=== PATIENT | female | born 1965 | race African-American/Black ===

== ENCOUNTER 2019-07-15 21:31 | Emergency (ER) | payer MEDICARE, SELFPAY ==
[2019-07-15 21:37] VITALS: BP 133/72; PULSE 89; RESP 22; TEMP 36.2; O2SAT 100
--- NOTE | 2019-07-15 21:40 | ED.ALLEREA ---
HPI - Allergic Reaction General Chief complaint: Skin/Abscess/Foreign Body Stated complaint: all rx Time Seen by Provider: 07/15/19 21:35 Source: patient and RN notes reviewed Mode of arrival: EMS Limitations: no limitations History of Present Illness HPI narrative: Pt is a 54 y/o female who presents to the ED via EMS with c/o possible allergic reaction. She notes that she recently began taking Estroven 4 days ago due to her undergoing menopause. Pt states that she then developed a rash and associated itching in her bilateral axilla 3 days ago. She notes that she hasn't used any new deodorants, soaps, or other new medications recently. Pt also reports wheezing as of earlier today, but denies any wheezing, nausea, vomiting, or diarrhea currently. According to the nurse, the pt took an OTC allergy medication this evening prior to her arrival to the ED. MD complaint: allergic reaction Onset (ago): day(s) (3) Exposure: medication (Estroven) Symptoms: rash and itching Treatment prior to arrival: other (OTC allergy medication) Related Data Home Medications Medication Instructions Recorded Confirmed Restasis 1 drp OPHTHALMIC (EYE) Q12H 03/30/19 06/22/19 Symbicort See Rx Instructions .ROUTE .COMPLEX 03/30/19 06/22/19 albuterol sulfate 0.63 mg INHALATION BID 03/30/19 06/22/19 baclofen 10 mg PO TID 03/30/19 06/22/19 cetirizine 5 mg PO DAILY 03/30/19 06/22/19 diazepam 10 mg PO HS PRN 03/30/19 06/22/19 gabapentin 300 mg PO TID 03/30/19 06/22/19 montelukast 10 mg PO HS 03/30/19 06/22/19 nabumetone 500 mg PO BID 03/30/19 06/22/19 paroxetine HCl 10 mg PO DAILY 03/30/19 06/22/19 polyethylene glycol 3350 [Miralax] 17 g PO DAILY 03/30/19 06/22/19 albuterol sulfate 90 mcg/actuation 2 puff INHALATION Q4-6H PRN gm 05/22/19 06/22/19 aerosol inhaler lamotrigine 25 mg tablet 25 mg PO DAILY tablet 01/03/20 02/03/20 lidocaine 5 % topical ointment 1 applic TOPICAL DAILY PRN 05/22/19 06/22/19 omeprazole 20 mg tablet,delayed 20 mg PO DAILY 05/22/19 06/22/19 release Allergies Allergy/AdvReac Type Severity Reaction Status Date / Time Sulfa (Sulfonamide Allergy Mild Swelling Verified 06/15/19 10:13 Antibiotics) ibuprofen Allergy Unknown Nausea Verified 06/15/19 10:13 prochlorperazine Allergy Unknown Sweating Verified 06/15/19 10:13 lisinopril Allergy Unknown Verified 06/15/19 10:13 Review of Systems Review of Systems: Narrative: CONSTITUTIONAL: Denies fever, chills, or sweats. RESPIRATORY: Denies cough or dyspnea. Reports wheezing (resolved). GASTROINTESTINAL: Denies abdominal pain, nausea, vomiting, or diarrhea. SKIN: Reports rash and itching on bilateral axilla. All systems reviewed & are unremarkable except as noted in HPI and below PMFSH Past Medical History Medical History Allergies Anemia Asthma Asthma Bunion rt foot Cataract, right eye Clostridium difficile infection Contracture of toe rt foot Ear infection Eczema Fibroids Fracture lt femur, lt tibia GERD (gastroesophageal reflux disease) Hyperlipidemia Hypertension Knee pain right knee after injury Methicillin resistant Staph aureus culture positive Multiple sclerosis Multiple sclerosis Onychomycosis Pneumonia Pressure ulcer of coccygeal region Pulmonary embolism Seasonal allergies Suprapubic catheter Suprapubic catheter UTI (urinary tract infection) Vitreous floater Left eye Wrist pain right Surgical History Surgical History H/O rotator cuff surgery rt H/O toe surgery History of bladder surgery History of mandibular surgery Hx of tubal ligation No significant past surgical history Family History Family History (System 06/15/19 @ 10:13 by Sharon Tomas) Sibling Patient's sister is in good health Heart disease Father Family history of malignant neoplasm Mother Type 2 diabetes mellitus Son Alive and well Daughter Alive and well Grandp
[2019-07-15] MEDS: FAMOTIDINE 20 MG TABLET PO (21:50)
[2019-07-15] MEDS: DEXAMETHASONE SOD PHOS INJ 4 MG/ML VIAL 10 MG BY MOUTH (21:58)
[2019-07-15 22:15] VITALS: BP 135/70; PULSE 71; RESP 18; O2SAT 100
--- NOTE | 2019-07-15 22:43 | PC.NURSE ---
Called [facility] to transport patient to residence. ETA 0030. #[id number]
[2019-07-15 23:41] VITALS: BP 115/84; PULSE 81; RESP 16; TEMP 36.2; O2SAT 100
== END 2019-07-15 23:42 | disposition home or self-care (01) ==
PROVIDERS: Emergency Provider Emergency Medicine; PCP Internal Medicine
DX: L25.9 Unspecified contact dermatitis, unspecified cause (principal); J45.909 Unspecified asthma, uncomplicated; K21.9 Gastro-esophageal reflux disease without esophagitis; E78.5 Hyperlipidemia, unspecified; I10 Essential (primary) hypertension; G35 Multiple sclerosis
CPT/HCPCS: 99283; A9270; J1100

== ENCOUNTER 2020-01-15 10:31 | Emergency (ER) | payer MEDICARE, SELFPAY ==
--- NOTE | ~2020-01-15 | XR_ITS ---
EXAMINATION: XR wrist RT min 3V DATE: 01/15/2020 12:17 INDICATION: Right wrist pain. Fall. TECHNIQUE: 3 views of right wrist were obtained. COMPARISON: Right wrist radiographs 12/29/2016 FINDINGS: Bone alignment is normal. No fracture. Osteopenia is noted. Joint spaces are well maintaine d. IMPRESSION: 1. No fracture. Reviewed, dictated and finalized at location B. IMPRESSION: 1. No fracture.
--- NOTE | ~2020-01-15 | XR_ITS ---
EXAMINATION: XR elbow RT min 3V DATE: 01/15/2020 12:17 INDICATION: Right elbow pain. TECHNIQUE: 4 views of right elbow were obtained. COMPARISON: None. FINDINGS: Bone alignment is normal. No fracture. Joint spaces are well maintained. No elbow joint eff usion. IMPRESSION: 1. Normal right elbow. Reviewed, dictated and finalized at location B. IMPRESSION: 1. Normal right elbow.
--- NOTE | ~2020-01-15 | XR_ITS ---
EXAMINATION: XR ribs RT 2V w CXR 2V DATE: 01/15/2020 12:17 INDICATION: Right chest pain. Fall. TECHNIQUE: Frontal and lateral views of the chest and 3 views of the right ribs were obtained. COMPARISON: Chest single view 05/03/2019 FINDINGS: CHEST TWO VIEWS: There is mild atelectasis at left lung base. No pleural effusion or pneumothorax. Th e heart size is normal. RIGHT RIBS: There is no rib fracture. IMPRESSION: 1. No rib fracture. 2. Mild atelectasis at left lung base. Reviewed, dictated and finalized at location B.
--- NOTE | ~2020-01-15 | CT_ITS ---
EXAMINATION: CT cervical spine wo [facility] EXAM DATE: 01/15/2020 11:35 INDICATION: Initial encounter following injury, with pain of the head, neck and low back. TECHNIQUE: Spiral CT of the cervical spine was performed without contrast. Axial images were reviewe d. Coronal and sagittal reformatted images were also reviewed. The dose-length product (DLP) for thi s examination was 214.23 mGy-cm. The exposure was tailored according to patient size (auto mA exposu re control), and iterative reconstruction (ASIR) was used as additional dose reduction technique. Th ere is no prior study for comparison. FINDINGS: There is no evidence of acute cervical fracture. The odontoid process is intact. Pre-dens space is normal. Prevertebral soft tissue is normal. There are no soft tissue abnormalities identi fied. There is no disc space widening or traumatic vertebral body subluxation suspected. Moderate t o severe cervical spondylosis, with right-sided predominant neural foraminal stenosis. A detailed le anthony by level evaluation of spondylosis can be added as addendum if requested. IMPRESSION: No acute cervical fracture. Reviewed, dictated and finalized at location A. IMPRESSION: No acute cervical fracture.
--- NOTE | ~2020-01-15 | XR_ITS ---
EXAMINATION: XR shoulder RT min 2V DATE: 01/15/2020 12:17 INDICATION: Right shoulder pain. TECHNIQUE: 3 views of right shoulder were obtained. COMPARISON: Right shoulder radiographs 03/29/2019 FINDINGS: Bone alignment is normal. No fracture. There is mild glenohumeral joint osteoarthritis. The re is severe acromioclavicular joint osteoarthritis. IMPRESSION: 1. Polyarticular osteoarthritis. Reviewed, dictated and finalized at location B.
--- NOTE | ~2020-01-15 | CT_ITS ---
EXAMINATION: CT lumbar spine wo con DATE: 01/15/2020 11:37 INDICATION: Low back pain. TECHNIQUE: Computed tomography (CT) of the lumbar spine was performed without intravenous contrast. A utomated exposure control and iterative reconstruction technique were employed. The dose-length produ ct was 1080.94 mGy-cm. COMPARISON: None FINDINGS: Bone alignment is normal. Vertebral body heights and intervertebral disc heights are normal . There are erosions at the sacroiliac joints. The following disc levels are specifically discussed: L1-L2: The disc does not extend beyond the endplate margin. There is mild bilateral facet joint osteo arthritis. There is no neural foraminal stenosis. There is no central canal stenosis. L2-L3: The disc does not extend beyond the endplate margin. There is moderate bilateral facet joint o steoarthritis. There is no neural foraminal stenosis. There is no central canal stenosis. L3-L4: The disc does not extend beyond the endplate margin. There is severe bilateral facet joint ost eoarthritis. There is no neural foraminal stenosis. There is no central canal stenosis. L4-L5: The disc does not extend beyond the endplate margin. There is severe bilateral facet joint ost eoarthritis. There is no neural foraminal stenosis. There is no central canal stenosis. L5-S1: The disc does not extend beyond the endplate margin. There is moderate bilateral facet joint o steoarthritis. There is no neural foraminal stenosis. There is no central canal stenosis. IMPRESSION: 1. Lumbar facet joint osteoarthritis. 2. Bilateral sacroiliitis. The differential diagnosis includes ankylosing spondylitis and enteropathy -associated arthritis. Reviewed, dictated and finalized at location B. IMPRESSION: 1. Lumbar facet joint osteoarthritis. 2. Bilateral sacroiliitis. The differential diagnosis includes ankylosing spond ylitis and enteropathy-associated arthritis.
--- NOTE | ~2020-01-15 | CT_ITS ---
EXAMINATION: CT brain wo con DATE: 01/15/2020 11:35 INDICATION: Head injury. TECHNIQUE: Computed tomography (CT) of the head was performed without intravenous contrast. The mA wa s adjusted according to patient size. Iterative reconstruction technique was employed. The dose-lengt h product was 605.33 mGy-cm. COMPARISON: Head CT 06/05/2019 FINDINGS: There are scattered areas of low attenuation in the cerebral white matter. There is no intr acranial hemorrhage, acute infarction, or abnormal intracranial mass lesion. The ventricles are daniel l in size. There are likely changes of right ocular lens replacement surgery. The paranasal sinuses a re clear. The mastoid air cells are normal. IMPRESSION: 1. Stable moderate white matter disease, consistent with multiple sclerosis. Reviewed, dictated and finalized at location B.
[2020-01-15 10:23] VITALS: BP 143/97; PULSE 77; RESP 16; TEMP 36.7; O2SAT 99
--- NOTE | 2020-01-15 11:20 | ED.UPPEXIN ---
HPI - Extremity Injury (Upper) General Chief Complaint: Extremity Injury, Upper Stated Complaint: Arm Pain after Fall Yesterday Time Seen by Provider: 01/15/20 10:39 Source: patient Mode of arrival: EMS Limitations: no limitations History of Present Illness HPI narrative: This is a 54 year old female that presents to the ER for a fall yesterday. Reports she has history of MS. Has trouble with ADL so has an loan assistant at home that helps her. Reports she was sitting on the end of the bed and she lost her balance and fell off the bed onto her left side. Reports since she has had right arm pain and neck pain. Also reports hitting her head. Denies loss of consciousness. Denies vision changes, vomiting, or new numbness. Related Data Home Medications Medication Instructions Recorded Confirmed Restasis 1 drp OPHTHALMIC (EYE) Q12H 03/30/19 08/28/19 baclofen 10 mg PO TID 03/30/19 08/28/19 cetirizine 5 mg PO DAILY 03/30/19 08/28/19 gabapentin 300 mg PO TID 03/30/19 08/28/19 nabumetone 500 mg PO BID 03/30/19 08/28/19 paroxetine HCl 10 mg PO DAILY 03/30/19 08/28/19 polyethylene glycol 3350 [Miralax] 17 g PO DAILY 03/30/19 08/28/19 albuterol sulfate 90 mcg/actuation 2 puff INHALATION Q4-6H PRN gm 05/22/19 08/28/19 aerosol inhaler lamotrigine 25 mg tablet 25 mg PO DAILY tablet 05/22/19 08/28/19 lidocaine 5 % topical ointment 1 applic TOPICAL DAILY PRN 05/22/19 08/28/19 Allergies Allergy/AdvReac Type Severity Reaction Status Date / Time Sulfa (Sulfonamide Allergy Mild Swelling Verified 06/15/19 10:13 Antibiotics) ibuprofen Allergy Unknown Nausea Verified 06/15/19 10:13 prochlorperazine Allergy Unknown Sweating Verified 06/15/19 10:13 lisinopril Allergy Unknown Verified 06/15/19 10:13 Review of Systems Review of Systems: Narrative: CONSTITUTIONAL: Denies fever EYES: Denies visual changes CARDIOVASCULAR: Denies chest pain RESPIRATORY: Denies dyspnea. GASTROINTESTINAL: Denies vomiting MUSCULOSKELETAL: Reports back pain, joint pain, and myalgia. NEUROLOGIC: Denies new numbness, or weakness. All systems reviewed & are unremarkable except as noted in HPI and below PMFSH Family History Family History (System 06/15/19 @ 10:13 by Sharon Tomas) Sibling Patient's sister is in good health Heart disease Father Family history of malignant neoplasm Mother Type 2 diabetes mellitus Son Alive and well Daughter Alive and well Grandparent Breast cancer Other Cerebrovascular accident Diabetes mellitus Family history of arthritis Family history of cardiovascular disease Hypertension Social History Social History Smoking status: Never smoker Alcohol intake: current Substance use: never Substance use type: does not use Gender identity (if verbalized by the patient): Female Spiritual care concerns: No Agree to blood products: Yes Exam Narrative: Exam Narrative: GENERAL: Well-appearing, well-nourished, and in no acute distress. HEAD: Normocephalic, atraumatic. EYES: PERRLA and EOMI. ENT: Nares clear, no rhinorrhea or epistaxis. Mucous membranes moist. Oropharynx without tonsillar hypertrophy exudate or other lesions. Bilateral TMs pearly hatch non-bulging NECK: Supple. No adenopathy or masses. CHEST: Clear to auscultation. No respiratory distress. No wheezes rales or rhonchi HEART: Regular rate and rhythm. No murmur heard. Normal peripheral pulses. ABDOMEN: Soft, nontender, nondistended, normal active bowel sounds. BACK: No midline thoracic spine tenderness. Tender to palpation of midline lumbar spine. Stage 1/2 pressure ulcer over the sacrum, without surrounding edema, erythema, or abnormal drainage EXTREMITIES: Decreased active ROM in the extremities due to chronic weakness from MS. No edema or obvious deformity. SKIN: Warm, dry, no rash. NEURO: No focal deficits. Alert and oriented x3. CN II-XII grossly intact PSYCH: Normal mood and affect Course
--- NOTE | 2020-01-15 11:48 | PC.NURSE ---
pt at radiology at this time
--- NOTE | 2020-01-15 12:17 | PC.NURSE ---
x2 Lidocaine patches removed from patients shoulders per patient request. She stated it was time for them to come off. Patches disposed of in medical waste bin per protocol.
[2020-01-15 12:45] VITALS: BP 135/80; PULSE 77; RESP 16; O2SAT 100
[2020-01-15 14:11] VITALS: BP 144/72; PULSE 86; RESP 16; TEMP 36.6; O2SAT 100
[2020-01-15 15:34] VITALS: BP 147/80; PULSE 89; RESP 16; O2SAT 98
== END 2020-01-15 15:35 | disposition home or self-care (01) ==
PROVIDERS: Emergency Provider Emergency Medicine; PCP Internal Medicine
DX: M54.2 Cervicalgia (principal); M79.601 Pain in right arm; M54.5 Low back pain; S09.90XA Unspecified injury of head, initial encounter; L89.151 Pressure ulcer of sacral region, stage 1; G35 Multiple sclerosis; M46.1 Sacroiliitis, not elsewhere classified; M19.011 Primary osteoarthritis, right shoulder; M47.816 Spondylosis without myelopathy or radiculopathy, lumbar region; R91.8 Other nonspecific abnormal finding of lung field; W06.XXXA Fall from bed, initial encounter
CPT/HCPCS: 70450; 71046; 71100; 72125; 72131; 73030; 73080; 73110; 99284; L0140

== ENCOUNTER → 2020-08-03 10:51 | Outpatient (CLI) | payer MEDICARE, MEDICAID, SELFPAY ==
--- NOTE | ~2020-08-03 | MM_ITS ---
EXAMINATION: MM screening [facility] BI w evon HISTORY: Screening TECHNIQUE: Craniocaudal and mediolateral oblique 3-D tomosynthesis images were obtained and synthetic 2-D images were generated. CAD analysis was submitted and interpreted. COMPARISON: Comparison to multiple prior studies sequentially, with oldest reviewed study dated 03/20. BREAST PARENCHYMAL COMPOSITION: There are scattered areas of fibroglandular density. FINDINGS: There is no evidence of suspicious mass, calcification, or architectural distortion to sugg est malignancy in either breast. There has been no suspicious interval change. IMPRESSION: 1. No mammographic evidence of malignancy. 2. Recommend routine screening mammography in one year. BI-RADS Category 1: Negative Reviewed, dictated and finalized at location A.
== END ==
DX: Z12.31 Encounter for screening mammogram for malignant neoplasm of breast (principal)
CPT/HCPCS: 77063; 77067

== ENCOUNTER 2020-10-22 13:07 | Observation (INO) | payer MEDICARE, MEDICAID, SELFPAY ==
[2020-10-22] VITALS (15 sets, daily range): BP systolic 115–149; BP diastolic 67–87; PULSE 63–78; RESP 16–20; TEMP 36.1–36.8; O2SAT 96–100; BMI 26.6
--- NOTE | ~2020-10-22 | XR_ITS ---
XR chest 1V portable DATE: 10/22/2020 14:35 INDICATION: Chest pain. Left flank pain. TECHNIQUE: Portable AP chest on 10/22/2020 at 1436 hours COMPARISON: 01/15/2020 2 view chest FINDINGS: There is moderate elevation of the right leaf of the diaphragm. There is mild atelectasis at the lung bases. The lungs otherwise appear clear. Heart size is likely within normal range considering magnification associated with AP projection. No pleural effusion or pulmonary vascular congestion or pneumothorax. IMPRESSION: Moderate elevation right diaphragm Mild atelectasis at the lung bases Reviewed, dictated and finalized at location A.
--- NOTE | ~2020-10-22 | CT_ITS ---
EXAMINATION: CT abdomen pelvis w con DATE: 10/22/2020 15:15 INDICATION: Left-sided abdominal pain TECHNIQUE: Computed tomography (CT) of the abdomen and pelvis was performed with 100 cc Omnipaque 350 intravenous contrast. Automated exposure control and iterative reconstruction technique were employe d. Exam dose: 922.00 mGy-cm total exam DLP. COMPARISON: 06/14/2019 CT abdomen pelvis /02/2019 CT abdomen pelvis FINDINGS: There is moderate elevation the right leaf of the diaphragm. There is bibasilar atelectasis , involving particularly the right lower lobe and to a lesser extent left lower lobe and middle lobe. Very small bilateral pleural effusions. No pericardial effusion. Occasional hepatic cysts measuring up to approximately 1.5 cm maximal dimension. Normal splenic size. The gallbladder is present. No gallbladder wall thickening or pericholecystic fluid or fat stranding . No bile duct dilatation. No pancreatic mass lesion or calcification is evident. There is interval pancreatic ductal prominence since prior examinations. Consider MRCP or ERCP correlation. Normal morphology of the adrenal glands. 1 cm upper pole left renal cyst. Very small lower pole left renal cyst. No renal mass lesion is noted otherwise. No urinary tract calculus or hydroureteronephrosis. There is a suprapubic catheter within the completely evacuated urinary bladder. Normal caliber of the abdominal aorta. No intraperitoneal or retroperitoneal or pelvic mass lesion or adenopathy or ascites. Normal appendix. There is nonspecific soft tissue thickening of the wall of the rectum and distal sigmoid colon. No jairon wel obstruction or intraperitoneal free air is detected. Mild fat-containing umbilical hernia. Subcutaneous fat stranding of the right buttock. Included skeletal structures are unremarkable. IMPRESSION: Bibasilar atelectasis, right greater than left Hepatic cysts Left renal cysts Interval pancreatic duct prominence, measuring up to approximately 2.3 mm diameter. Consider correlat ion with MRCP or ERCP Nonspecific soft tissue thickening of the rectal and distal sigmoid colon wall there is no atheroscle rotic calcification of the abdominal aorta or iliac vessels to suggest ischemic etiology Reviewed, dictated and finalized at [facility]. Reviewed, dictated and finalized at location A. IMPRESSION: Bibasilar atelectasis, right greater than left Hepatic cysts Left renal cysts Interval pancreatic duct prominence, measuring up to approximately 2.[address] Consider correlation with MRCP or ERCP Nonspecific soft tissue thickening of the rectal and distal sigmoid colon wall there is no atherosclerotic calcification of the abdominal aorta or iliac vesse ls to suggest ischemic etiology
--- NOTE | ~2020-10-22 | MR_ITS ---
EXAMINATION: MR MRCP wo con/w 3D wo ind pp DATE: 10/23/2020 12:52 INDICATION: Dilated pancreatic duct. Abdominal pain. TECHNIQUE: Magnetic resonance imaging (MRI) of the abdomen was performed without intravenous contrast . Sequences included coronal T2-weighted FS FSE, coronal T2-weighted FSE, axial T1-weighted LAVA, cor onal FS FIESTA, axial dual-echo T1-weighted SPGR, coronal lava-FLEX, sagittal T2-weighted FSE, axial T2-weighted FSE, and axial DWI. Thick-slab T2-weighted FSE images were obtained for magnetic resonanc e cholangiopancreatography (MRCP). Maximum intensity projection 3-D reconstructions of the volumetric data were created by the technologist. COMPARISON: CT abdomen and pelvis 10/22/2020 FINDINGS: ABDOMEN MRI: There are small pleural effusions, right worse than left. There are cysts in the liver m easuring up to 15 mm. The gallbladder is distended. The spleen, pancreas, and adrenal glands are norm al. There is cortical thinning of the kidneys. There is a 10 mm hemorrhagic cyst in left kidney. Ther e are no dilated loops of bowel. There are no pathologically enlarged lymph nodes. There is no free i ntraperitoneal fluid. A suprapubic catheter is noted. ABDOMEN MRCP: The common duct is normal and measures 3 mm. The pancreatic duct is normal. IMPRESSION: 1. Normal pancreatic duct. 2. Gallbladder distention, which may be secondary to fasting. Correlate with physical exam for any ev idence of acute cholecystitis. 3. Small pleural effusions. Reviewed, dictated and finalized at location A. IMPRESSION: 1. Normal pancreatic duct. 2. Gallbladder distention, which may be secondary to fasting. Correlate with ph ysical exam for any evidence of acute cholecystitis. 3. Small pleural effusions.
--- NOTE | 2020-10-22 13:41 | ECG_ITS ---
Measurements Intervals [place] Rate: 67 P: 42 TX: 180 QRS: 7 QRSD: 92 T: -1 QT: 396 QTc: 419 Interpretive Statements SINUS RHYTHM INCOMPLETE RIGHT BUNDLE BRANCH BLOCK LOW QRS VOLTAGE IN PRECORDIAL LEADS BORDERLINE ST-T WAVE ABNORMALITY- ANT/INF LEADS BORDERLINE ECG Electronically Signed On 10-22-2020 17:49:56 CDT by Chucky Lassiter D.O.
--- NOTE | 2020-10-22 13:44 | ED.GENADULT ---
HPI - General Adult General Chief complaint: Abdominal Pain Stated complaint: abd pain Time Seen by Provider: 10/22/20 13:20 Source: patient Mode of arrival: wheelchair Limitations: physical limitation History of Present Illness HPI narrative: Patient presents for evaluation of pain in the left side for the last 2 weeks. She cannot identify any precipitating cause or injury. Pain is constant, described as nagging and excruciating. No radicular component to the pain. No fever, chills, vomiting, change in bowel pattern. Last bowel movement was yesterday, solid consistency, without the presence of blood or mucus in the stool. She has experienced nausea. She is an underlying history of multiple sclerosis and is wheelchair-bound. She has a suprapubic catheter which is changed every 3 weeks. She states it was last changed about two weeks ago. 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 Pt states she experienced right sided chest pain earlier today which is still present. She does not provide me with a descriptive quality to the pain but rates her symptoms as 8/10 in severity. No cough or SOB. Related Data Home Medications Medication Instructions Recorded Confirmed Restasis 1 drp OPHTHALMIC (EYE) Q12H 03/30/19 10/20/20 cetirizine 5 mg PO DAILY 03/30/19 10/20/20 gabapentin 300 mg PO TID 03/30/19 10/20/20 paroxetine HCl 10 mg PO DAILY 03/30/19 10/20/20 polyethylene glycol 3350 [Miralax] 17 g PO DAILY 03/30/19 10/20/20 lamotrigine 25 mg tablet 25 mg PO DAILY tablet 05/22/19 10/20/20 lidocaine 5 % topical ointment 1 applic TOPICAL DAILY PRN 05/22/19 10/20/20 Allergies Allergy/AdvReac Type Severity Reaction Status Date / Time Sulfa (Sulfonamide Allergy Mild Swelling Verified 10/22/20 13:43 Antibiotics) prochlorperazine Allergy Unknown Sweating Verified 10/22/20 13:43 lisinopril Allergy Unknown Verified 10/22/20 13:43 ibuprofen AdvReac Unknown Nausea Verified 10/22/20 13:43 Review of Systems Review of Systems: Narrative: CONSTITUTIONAL: Denies fever, chills, or sweats. EYES: Denies visual changes, redness, or discharge. ENT: Denies rhinorrhea, congestion, sore throat, or otalgia. CARDIOVASCULAR: Reports right sided chest pain. Denies palpitations, or edema. RESPIRATORY: Denies cough or dyspnea. GASTROINTESTINAL: Reports left sided abdominal pain and nausea without vomiting. Denies diarrhea GENITOURINARY: Denies dysuria or hematuria. SKIN: Denies rash or itching. MUSCULOSKELETAL: Denies back pain, joint pain, or myalgia. NEUROLOGIC: Denies headache, numbness, dizziness, or weakness. PSYCHIATRIC: Denies anxiety or depression. [facility] Past Medical History Medical History (Updated 10/22/20 @ 17:15 by Archie Banegas, TRANG, ) Allergies Anemia Asthma Asthma Bunion rt foot Cataract, right eye Clostridium difficile infection Contracture of toe rt foot Ear infection Eczema Fibroids Fracture lt femur, lt tibia GERD (gastroesophageal reflux disease) Hyperlipidemia Hypertension Knee pain right knee after injury Methicillin resistant Staph aureus culture positive Multiple sclerosis Multiple sclerosis Onychomycosis Pneumonia Pressure ulcer of coccygeal region Pulmonary embolism Seasonal allergies Suprapubic catheter Suprapubic catheter UTI (urinary tract infection) Vitreous floater Left eye Wrist pain right Surgical History Surgical History H/O rotator cuff surgery rt H/O toe surgery History of bladder surgery History of mandibular surgery Hx of tubal ligation No significant past surgical history Family History Family History Sibling Patient's sister is in good health Heart disease Father Family history of malignant neoplasm Mother Type 2 diabetes mellitus Son Alive and well Daughter Alive and well Grandparent Breast cancer Other Cerebrovascular
[2020-10-22] MEDS: MORPHINE SULFATE (*CRX) 2 MG/ML INJ IV PUSH ×2 (14:18→21:58)
[2020-10-22] MEDS: ONDANSETRON INJ 4 MG/2 ML VIAL IV PUSH ×2 (14:19→20:27)
[2020-10-22 14:28] LABS: Basophils Percent Auto 0.5 % (0.2-1.2); Eosinophils Absolute Auto 0.1 K/mm3 (0-0.3); Eosinophils Percent Auto 2.5 % (0-4.4); Hematocrit 41.2 % (37.0-47.0); Hemoglobin 12.5 g/dL (12.0-15.0); Immature Granulocyte Absolute 0.01 K/mm3 (0.00-0.031); Immature Granulocyte Percent A 0.2 % (0-0.5); Lymphocytes Absolute Auto 1.89 K/mm3 (0.9-3.2); Lymphocytes Percent Auto 34.2 % (18.3-44.2); Mean Corpuscular HGB Conc 30.3 g/dl (32-36); Mean Corpuscular Hemoglobin 29.6 pg (26-34); Mean Corpuscular Volume 97.6 fl (80-100); Monocytes Absolute Auto 0.6 K/mm3 (0.1-0.6); Monocytes Percent Auto 10.7 % (2.6-8.5); Neutrophils Absolute Auto 2.9 K/mm3 (1.3-6.7); Neutrophils Percent Auto 51.9 % (45.5-73.1); Platelet Count Result 238 k/mm3 (150-375); Red Blood Count 4.22 M/mm3 (4.2-5.4); Red Cell Distribution Width 13.2 % (11.5-14.5); White Blood Count 5.5 K/mm3 (4.5-10.0)
[2020-10-22 14:33] LABS: Add Urine Microscopic? YES; Appearance Urine Cloudy (Clear); Bacteria Urine 4+ /hpf; Bilirubin Urine Negative (Negative); Blood Urine Negative (Negative); Calcium Oxalate Crystals Urine Present /hpf; Color Urine Amber (Yellow); Glucose Urine UA Negative (Negative); Ketones Urine Negative (Negative); Leukocyte Esterase Ur 3+ LEU/UL (Negative); Mucus Urine Rare /lpf; Nitrate Urine Positive (Negative); Protein Urine 1+ mg/dL (Negative); Specific Grav Ur 1.016 (1.001-1.035); Squamous Epithelial Cell Urine Few /hpf (Few); Urobilinogen Urine Negative mg/dL (<2.0); WBC Urine 31-50 /hpf
[2020-10-22] MEDS: HYDROcodone/acetaminophen (*CRX) 5-325 MG TABLET 2 TAB PO (15:10)
[2020-10-22 15:33] LABS: Alanine Aminotransferase 19 U/L (4-35); Albumin Level 3.6 g/dL (3.5-5.1); Alkaline Phosphatase 126 U/L (38-126); Anion Gap 7 mmol/L (8-16); Aspartate Amino Transferase 31 U/L (14-36); Bilirubin,Total < 0.1 mg/dL (0.2-1.3); Blood Urea Nitrogen 15 mg/dL (7-17); Calcium 9.4 mg/dL (8.4-10.2); Carbon Dioxide 32 mmol/L (22-30); Chloride 102 mmol/L (98-107); Estimated CRCL calculation 116 ml/min; Estimated Glomerular Filt Rate > 60; Glucose 72 mg/dL (65-105); Lipase 214 U/L (23-300); Potassium 4.1 mmol/L (3.4-5.0); Sodium 141 mmol/L (137-145)
[2020-10-22 15:44] LABS: Troponin I < 0.012 ng/mL (0.000-0.034)
[2020-10-22] MEDS: MORPHINE SULFATE (*CRX) 4 MG/ML INJ IV PUSH (16:46)
[2020-10-22] MEDS: SODIUM CHLORIDE 0.9% IV 1,000 ML 150 ML IV CONT (17:27)
[2020-10-22] MEDS: metroNIDAZOLE 500 MG/ISO 100ML 500 MG/100 ML BAG 100 MG IVPB (17:27)
[2020-10-22] MEDS: CIPROFLOXACIN 400 MG/D5W 200ML 200 ML 200 MG IVPB (18:18)
[2020-10-22 19:29] LABS: Troponin I < 0.012 ng/mL (0.000-0.034)
--- NOTE | 2020-10-22 19:30 | ADMGEN ---
This patient, Hayley Eduardo, was admitted to Medical Room 348-01. Patient/family oriented to hospital policies and general routines including ID bracelet, bed and alarms, visiting hours, pain management, procedures, bathroom and other care routines, personal items, smoking policy, room service/diet, and visiting hours. Information on how to activate the Rapid Response Team has been discussed. Patient/Family are encouraged to report perceived risks to care and to ask questions if they do not understand what they are told or what they should do.
--- NOTE | 2020-10-22 23:37 | PM.IMHP ---
H&P: HPI History of Present Illness Date/Time: 10/22/20 23:37 Chief Complaint: abdominal pain Narrative: patient with MS bedbound status, presents with 2 weeks history of abdomianl pain nausea specilaly on left side of her belly. she went to see her pcp and was planned to have us abdomen, which is not done yet. she rpeorts the pain stared gradually and has been getting worse since then. the pain si constant and describes as nagging sensation. no fever, chills. she reports no vomiting. she reports that she does nto have any change in her bowel habits and her last bm was yeserdayw hich was solid with no blood or mucus. she denies any change in her urine and has suprapubic cathter whichw as chagned about 2 weeks ago. she is evaluated in the ED and wsa noted to have mild soft tissue swellign in her left sigmoid colon area along with mild prominence of pancreatic duct. She is noted to have dirty urine and suprapubic catheter was changed. she is admitted for further evaluation and managment. she was given cipro and flagyl in the ed to cover for uti as well as colitis. she is planned to see GI on consult for evalution of her abdominal pain. she reports she wants to try to eat as she will not be able to take medication without food in her stomach. Review of Systems Review of Systems: Narrative: - CONSTITUTIONAL: Denies weight loss, fever and chills. - HEENT: Denies changes in vision and hearing - RESPIRATORY: Denies SOB and cough. - CV: Denies palpitations and CP. - GI: reports abdominal pain, nausea, denies vomiting and diarrhea. - : Denies dysuria and urinary frequency. - MSK: Denies myalgia and joint pain. - SKIN: Denies rash and pruritus. - NEUROLOGICAL: Denies headache and syncope. - PSYCHIATRIC: Denies recent changes in mood. Denies anxiety and depression. All systems reviewed & are unremarkable except as noted in HPI and below Constitutional: Constitutional: Reports fatigue and Reports weakness Neurologic: Reports weakness Endocrine: Endocrine: Reports fatigue [facility] Past Medical History Medical History (Updated 10/22/20 @ 17:15 by Archie Banegas, JAVASCRIPT UI DEVELOPER, BC) Allergies Anemia Asthma Asthma Bunion rt foot Cataract, right eye Clostridium difficile infection Contracture of toe rt foot Ear infection Eczema Fibroids Fracture lt femur, lt tibia GERD (gastroesophageal reflux disease) Hyperlipidemia Hypertension Knee pain right knee after injury Methicillin resistant Staph aureus culture positive Multiple sclerosis Multiple sclerosis Onychomycosis Pneumonia Pressure ulcer of coccygeal region Pulmonary embolism Seasonal allergies Suprapubic catheter Suprapubic catheter UTI (urinary tract infection) Vitreous floater Left eye Wrist pain right Surgical History Surgical History H/O rotator cuff surgery rt H/O toe surgery History of bladder surgery History of mandibular surgery Hx of tubal ligation No significant past surgical history Family History Family History Sibling Patient's sister is in good health Heart disease Father Family history of malignant neoplasm Mother Type 2 diabetes mellitus Son Alive and well Daughter Alive and well Grandparent Breast cancer Other Cerebrovascular accident Diabetes mellitus Family history of arthritis Family history of cardiovascular disease Hypertension Social History Social History Smoking status: Never smoker Second hand tobacco smoke exposure: No Alcohol intake: current Drinks per week: 1 Substance use: never Substance use type: does not use Gender identity (if verbalized by the patient): Female Spiritual care concerns: No Agree to blood products: Yes Meds Home Medications and Allergies Home Medications Medication Ins
[2020-10-23] MEDS: metroNIDAZOLE 500 MG/ISO 100ML 500 MG/100 ML BAG 100 MG IVPB ×3 (02:54→18:31)
[2020-10-23 04:07] VITALS: BP 132/60; PULSE 80; RESP 18; TEMP 36.6; O2SAT 96
[2020-10-23] MEDS: ONDANSETRON INJ 4 MG/2 ML VIAL IV PUSH ×2 (05:53→23:56)
[2020-10-23] MEDS: CIPROFLOXACIN 400 MG/D5W 200ML 200 ML 200 MG IVPB ×2 (05:53→17:27)
[2020-10-23 06:24] LABS: Basophils Percent Auto 0.6 % (0.2-1.2); Eosinophils Absolute Auto 0.1 K/mm3 (0-0.3); Hematocrit 41.4 % (37.0-47.0); Hemoglobin 12.8 g/dL (12.0-15.0); Immature Granulocyte Absolute 0.01 K/mm3 (0.00-0.031); Immature Granulocyte Percent A 0.1 % (0-0.5); Lymphocytes Absolute Auto 1.61 K/mm3 (0.9-3.2); Lymphocytes Percent Auto 22.5 % (18.3-44.2); Mean Corpuscular HGB Conc 30.9 g/dl (32-36); Mean Platelet Volume 9.9 fl (7.4-10.4); Monocytes Absolute Auto 0.7 K/mm3 (0.1-0.6); Monocytes Percent Auto 9.2 % (2.6-8.5); Neutrophils Absolute Auto 4.7 K/mm3 (1.3-6.7); Neutrophils Percent Auto 65.6 % (45.5-73.1); Platelet Count Result 251 k/mm3 (150-375); Red Blood Count 4.27 M/mm3 (4.2-5.4); Red Cell Distribution Width 13.1 % (11.5-14.5); White Blood Count 7.2 K/mm3 (4.5-10.0)
[2020-10-23 06:36] LABS: Anion Gap 6 mmol/L (8-16); Blood Urea Nitrogen 8 mg/dL (7-17); Calcium 8.7 mg/dL (8.4-10.2); Carbon Dioxide 31 mmol/L (22-30); Chloride 102 mmol/L (98-107); Estimated CRCL calculation 148 ml/min; Estimated Glomerular Filt Rate > 60; Glucose 107 mg/dL (65-105); Potassium 3.6 mmol/L (3.4-5.0); Sodium 139 mmol/L (137-145)
[2020-10-23 08:15] VITALS: O2SAT 98
[2020-10-23] MEDS: TOLNAFTATE 1% POWDER 45 GM BTL 1 APPLIC TOPICAL ×3 (08:55→17:27)
[2020-10-23] MEDS: amLODIPine BESYLATE 5 MG TABLET 10 MG PO (08:56)
[2020-10-23] MEDS: BACLOFEN 10 MG TABLET PO ×3 (08:56→17:26)
[2020-10-23] MEDS: ATORVASTATIN 20 MG TABLET PO (08:56)
[2020-10-23] MEDS: CARBAMAZEPINE XR 200 MG TAB.ER.12H PO ×2 (08:56→17:27)
[2020-10-23] MEDS: GABAPENTIN 300 MG CAPSULE BY MOUTH (08:57)
[2020-10-23] MEDS: NABUMETONE 500 MG TABLET PO ×2 (08:57→17:26)
[2020-10-23] MEDS: lamoTRIgine 25 MG TABLET PO (08:57)
[2020-10-23] MEDS: LOSARTAN POTASSIUM 50 MG TABLET PO (08:57)
[2020-10-23] MEDS: TRIAMCINOLONE ACET 0.1% CREAM 15 GM TUBE 1 APPLIC TOPICAL ×2 (08:58→17:27)
[2020-10-23] MEDS: cycloSPORINE 0.4 ML OPHTH SOLUTION 1 DROP EACH EYE ×2 (08:58→20:06)
[2020-10-23] MEDS: PANTOPRAZOLE 40 MG TABLET PO (10:20)
[2020-10-23] MEDS: LORATADINE 10 MG TABLET PO (11:17)
[2020-10-23] MEDS: LIDOCAINE 5% PATCH 1 PATCH TOPICAL (11:35)
--- NOTE | 2020-10-23 11:54 | WPDGICN ---
Assessment and Plan Assessment and plan (1) Left flank pain: Code(s): R10.9 - Unspecified abdominal pain Status: Acute Assessment and Plan: will order MRCP to assess pancreas, probably incidental finding and I do not know if would be cause of abdominal pain if negative or no major findings then we may consider to do EGD (also nausea) and colonoscopy (possible some thickening of left colon) but no report of diarrhea (2) Nausea: Code(s): R11.0 - Nausea Status: Acute Assessment and Plan: may need egd (3) Dilated pancreatic duct: Code(s): K86.89 - Other specified diseases of pancreas Status: Acute Assessment and Plan: MRCP (4) Multiple sclerosis: Code(s): G35 - Multiple sclerosis Status: Acute (5) Abnormal CT scan, colon: Code(s): R93.3 - Abnormal findings on diagnostic imaging of other parts of digestive tract Status: Acute Assessment and Plan: may need colonoscopy GI Consult Note Consult date/time: 10/23/20 11:54 Reason for consult: left sided abdominal pain and abnormal colon and PD by CT scan HPI: Hayley Eduardo is a 55 year old female with history of MS for almost 30 years now bedbound and needing assistance with ADL. She came here with 2 weeks of progressive abdominal pain on left side of her belly and also nausea, her PCP was planning to order ultrasound of abdomen but has not been completed yet. Pain still is not gone, constant and describes as nagging sensation. She has tendency to have constipation but most of the times will have one BM a day, has to use dependant and she also has suprapubic catheter which is changed every so often. Her last colonoscopy about 5 years ago, she drinks alcohol but only socially, denies history of liver/pancreas disease. CT scan reviewed and showed interval pancreatic duct prominence, measuring up to approximately 2.3 mm diameter, nonspecific soft tissue thickening of the rectal and distal sigmoid colon wall there is no atherosclerotic calcification of the abdominal aorta or iliac vessels to suggest ischemic etiology. She was started empirically on antibiotics. She is also asking for tylenol because of headache and is hungry (now on liquid diet) and would like to advance her diet. Review of Systems Constitutional: Constitutional: Denies chills Eyes: Eyes: Reports no additional eye complaints ENT: Reports Normal hearing present Cardiovascular: Cardiovascular: Denies chest pain Respiratory: Respiratory: Denies dyspnea Gastrointestinal: Gastrointestinal: Reports abdominal pain and Reports nausea Genitourinary: Comments: suprapubic catheter Musculoskeletal: Comments: generalized weakness due to MS Integumentary/Breasts: Skin/Breast: Denies dry skin Neurologic: Reports headache(s) Psychiatric: Psychiatric: Denies behavioral changes [facility] Past Medical History Medical History (Updated 10/23/20 @ 12:01 by Geoffrey Villela MD) Abnormal CT scan, colon Allergies Anemia Asthma Asthma Bunion rt foot Cataract, right eye Clostridium difficile infection Contracture of toe rt foot Dilated pancreatic duct Ear infection Eczema Fibroids Fracture lt femur, lt tibia GERD (gastroesophageal reflux disease) Hyperlipidemia Hypertension Knee pain right knee after injury Methicillin resistant Staph aureus culture positive Multiple sclerosis Multiple sclerosis Onychomycosis Pneumonia Pressure ulcer of coccygeal region Pulmonary embolism Seasonal allergies Suprapubic catheter Suprapubic catheter UTI (urinary tract infection) Vitreous floater Left eye Wrist pain right Surgical History Surgical History H/O rotator cuff surgery rt H/O toe surgery History of bladder surgery History of mandibular surgery Hx of tubal ligation No significant past surgical history Family History Family History (Reviewed 10/22/20 @
[2020-10-23 14:00] VITALS: BP 128/68; PULSE 83; RESP 16; TEMP 37.1; O2SAT 97
--- NOTE | 2020-10-23 15:34 | PM.IMPN ---
Progress Note: A&P Assessment and Plan (1) Intractable abdominal pain: Code(s): R10.9 - Unspecified abdominal pain Status: Acute (2) Urinary tract infection: Qualifiers: Hematuria presence: without hematuria Urinary tract infection type: acute cystitis Qualified Code(s): N30.00 - Acute cystitis without hematuria Code(s): N39.0 - Urinary tract infection, site not specified Status: Acute (3) Left flank pain: Code(s): R10.9 - Unspecified abdominal pain Status: Acute (4) Atonic bladder: Code(s): N31.2 - Flaccid neuropathic bladder, not elsewhere classified Status: Acute (5) Nausea: Code(s): R11.0 - Nausea Status: Acute (6) GERD (gastroesophageal reflux disease): Code(s): K21.9 - Gastro-esophageal reflux disease without esophagitis Status: Acute (7) Hypertension: Qualifiers: Hypertension type: essential hypertension Qualified Code(s): I10 - Essential (primary) hypertension Code(s): I10 - Essential (primary) hypertension Status: Acute (8) Multiple sclerosis: Code(s): G35 - Multiple sclerosis Status: Acute Additional Plan # abdominal pain: worsening x2 weeks ct abdomen with mild prominence of pancreatic duct which is new along with some soft tissue thickening of the rectal and distal sigmoid colon wall s/o colitis continue cipro and flagyl wbc count wnl GI consulted, recommendations appreciated MRCP today continue with iv morphine prn and iv zofran prn clear # left sigmoid colitis: no diarrhea continue with cipro and flagyl # hx o MS with bedbound status # UTI: continue cipro follow UC suprapubic catheter has been changed in the ED # atonic bladder s/p suprapubic catheter status # DVT ppx: lovenox # Full code Subjective Date/time seen: 10/23/20 15:34 pt seen and evaluated; continues with abdominal pain Review of Systems Review of Systems: All systems reviewed & are unremarkable except as noted in HPI and below Exam Narrative: Exam Narrative: Well-appearing, well-nourished Const: General: no acute distress Orientation/consciousness: patient oriented x3 HENMT: Head: normocephalic and atraumatic Ears: hearing grossly normal bilaterally Mouth: Yes Normal oral and palatal mucosa present Eyes: Pupils: Equal, round and reactive pupils present EOM: EOMs intact bilaterally Neck: Neck: full ROM, trachea midline and no JVD Thyroid: thyroid normal Chest: Chest palpation & inspection: normal inspection of the chest Resp: Effort & Inspection: normal respiratory effort Auscultation: clear to auscultation bilaterally Cardio: Jugular venous distension: no JVD Rate: regular rate Rhythm: regular rhythm Heart sounds: S1 normal heart sound present and S2 normal heart sound present GI: Inspection: normal to inspection GI Palp: Yes Soft to palpation Percussion: Yes normal to percussion Auscultation: normal bowel sounds : General: Yes no CVA tenderness Urinary Catheter: Urinary Catheter: other (suprapubic catheter) Back/Spine/Pelvis: Back: no CVA tenderness Skin: General skin exam: normal color Rashes: no rashes Neuro: General: patient oriented x3 Cranial nerves: Yes Equal, round and reactive pupils present Speech: normal speech Extrem: Right lower extremity: normal to inspection Left lower extremity: normal to inspection Objective Data Vital Signs Vital Signs: Vital Signs - 24 hr 10/22/20 16:01 10/22/20 16:31 10/22/20 17:01 Temperature Pulse Rate Respiratory Rate Blood Pressure 131/73 129/69 137/87 Pulse Oximetry 10/22/20 17:13 10/22/20 18:01 10/22/20 19:09 Temperature 36.6 C 36.6 C Pulse Rate 74 78 Respiratory Rate 20 18 Blood Pressure 137/87 132/67 138/68 Pulse Oximetry 96 99 10/22/20 19:41 10/22/20 19:43 10/22/20 22:44 Temperature 36.1 C L 36.1 C L Pulse Rate 63 63 Respiratory Rate 16 16 Blood Pressure 149/
[2020-10-23] MEDS: ACETAMINOPHEN 325 MG TABLET 650 MG PO (20:05)
[2020-10-23] MEDS: diazePAM (*CRX) 5 MG TABLET 10 MG PO (20:05)
[2020-10-23] MEDS: GABAPENTIN 300 MG CAPSULE 600 MG BY MOUTH (20:05)
[2020-10-23 20:19] VITALS: BP 138/60; PULSE 75; RESP 18; TEMP 36.5; O2SAT 100
[2020-10-23 20:55] VITALS: PULSE 75; RESP 14; O2SAT 95
[2020-10-23] MEDS: ALBUTEROL SULFATE NEB 2.5 MG/0.5 ML INH INHALATION (20:59)
[2020-10-23 21:07] VITALS: PULSE 77; RESP 14
[2020-10-24] VITALS (7 sets, daily range): BP systolic 121–136; BP diastolic 63–70; PULSE 72–77; RESP 16–20; TEMP 36.3–36.7; O2SAT 94–100
[2020-10-24] MEDS: metroNIDAZOLE 500 MG/ISO 100ML 500 MG/100 ML BAG 100 MG IVPB ×3 (02:50→16:57)
[2020-10-24] MEDS: CIPROFLOXACIN 400 MG/D5W 200ML 200 ML 200 MG IVPB ×2 (05:35→16:58)
[2020-10-24] MEDS: ALBUTEROL SULFATE NEB 2.5 MG/0.5 ML INH INHALATION ×2 (07:21→20:29)
[2020-10-24] MEDS: LORATADINE 10 MG TABLET PO (08:40)
[2020-10-24] MEDS: BACLOFEN 10 MG TABLET PO ×3 (08:40→16:58)
[2020-10-24] MEDS: LOSARTAN POTASSIUM 50 MG TABLET PO (08:40)
[2020-10-24] MEDS: ATORVASTATIN 20 MG TABLET PO (08:41)
[2020-10-24] MEDS: NABUMETONE 500 MG TABLET PO ×2 (08:41→16:58)
[2020-10-24] MEDS: cycloSPORINE 0.4 ML OPHTH SOLUTION 1 DROP EACH EYE ×2 (08:41→20:25)
[2020-10-24] MEDS: GABAPENTIN 300 MG CAPSULE BY MOUTH (08:41)
[2020-10-24] MEDS: amLODIPine BESYLATE 5 MG TABLET 10 MG PO (08:41)
[2020-10-24] MEDS: lamoTRIgine 25 MG TABLET PO (08:41)
[2020-10-24] MEDS: PANTOPRAZOLE 40 MG TABLET PO (08:41)
[2020-10-24] MEDS: CARBAMAZEPINE XR 200 MG TAB.ER.12H PO ×2 (08:41→16:58)
[2020-10-24] MEDS: TRIAMCINOLONE ACET 0.1% CREAM 15 GM TUBE 1 APPLIC TOPICAL ×2 (08:42→16:58)
[2020-10-24] MEDS: TOLNAFTATE 1% POWDER 45 GM BTL 1 APPLIC TOPICAL ×3 (08:42→16:58)
[2020-10-24] MEDS: ACETAMINOPHEN 325 MG TABLET 650 MG PO ×2 (08:52→20:32)
[2020-10-24] MEDS: LIDOCAINE 5% PATCH 1 PATCH TOPICAL (09:30)
--- NOTE | 2020-10-24 10:25 | PM.IMPN ---
Progress Note: A&P Assessment and Plan (1) Intractable abdominal pain: Code(s): R10.9 - Unspecified abdominal pain Status: Acute Assessment and Plan: Persistent. MRCP showed normal pancreatic and common duct distended gallbladder, which may be due to fasting. CT also demonstrated rectal and distal sigmoid thickening. Appreciate gastroenterology consultation. EGD being considered. Continue low-fat diet Supportive care. Analgesics and antiemetics available as needed She has been started on Cipro and Flagyl for colitis (2) Urinary tract infection: Qualifiers: Hematuria presence: without hematuria Urinary tract infection type: acute cystitis Qualified Code(s): N30.00 - Acute cystitis without hematuria Code(s): N39.0 - Urinary tract infection, site not specified Status: Acute Assessment and Plan: Urine culture with growth of >100,000 CFU Pseudomonas aeruginosa. Likely secondary to suprapubic catheter which has been exchanged. Continue IV ciprofloxacin based on susceptibilities (3) Multiple sclerosis: Code(s): G35 - Multiple sclerosis Status: Acute Assessment and Plan: With associated muscular weakness. 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 Continue baclofen Supportive care (4) Atonic bladder: Code(s): N31.2 - Flaccid neuropathic bladder, not elsewhere classified Status: Acute Assessment and Plan: Secondary to MS. Continue suprapubic catheter (5) Hypertension: Qualifiers: Hypertension type: essential hypertension Qualified Code(s): I10 - Essential (primary) hypertension Code(s): I10 - Essential (primary) hypertension Status: Acute Assessment and Plan: Blood pressure reviewed and is stable. Last BP 129/67 Continue losartan and amlodipine Subjective Date/time seen: 10/24/20 10:25 Interval history: Date of service: 10/24/2020 Hayley Eduardo is a 55-year-old female with a history of multiple sclerosis, hypertension, he and hyperlipidemia who is seen in follow-up for abdominal pain. This morning, she is complaining of significant epigastric pain has been ongoing since last night. She ate eggs for breakfast this morning and did not notice any improvement or worsening in her pain with food. Reports pain is constricted more on left side but spreads across the entire epigastrium. Denies so she did nausea or vomiting. Denies diarrhea. No issues with her suprapubic catheter. Denies fever, chills, dizziness, lightheadedness. Complains of feeling cold. Denies shortness breath, cough, or chest pain. Review of Systems Review of Systems: All systems reviewed & are unremarkable except as noted in HPI and below Exam Narrative: Exam Narrative: Ms. Eduardo is a chronically ill-appearing 55-year-old female who is lying supine in bed. She appears comfortable and is in NARD. Neuro: awake, alert and oriented x4, speech is slow and soft, no focal neuro deficits noted, left arm is flaccid, right arm is contracted. HEENMT: normocephalic, atraumatic, EOMI, sclerae anicteric, moist oral mucosa, tongue midline, nares patent Neck: supple, no lymphadenopathy Respiratory: clear to auscultation anteriorly, nonlabored breathing Cardio: regular rate, regular rhythm with S1-S2 Abdomen: nondistended, normoactive bowel sounds, soft, tender to palpation in epigastric region, no rigidity or guarding : suprapubic catheter in place Extremities: no edema, erythema, cyanosis, clubbing, or tenderness to palpation. DP pulses 2+ bilaterally Skin: no rashes or lesions, warm and dry Psych: appropriate mood and affect, judgment and insight intact Objective Data Vital Signs Vital Signs: Vital Signs - 24 hr 10/23/20 14:00 10/23/20 20:19 10/23/20 20:55 Temperature 98.7 F 97.7 F Pulse Rate 83 75 75 Respiratory Rate 16 18 14 Blood Pressur
[2020-10-24 11:13] LABS: Anion Gap 6 mmol/L (8-16); Blood Urea Nitrogen 10 mg/dL (7-17); Calcium 8.9 mg/dL (8.4-10.2); Carbon Dioxide 30 mmol/L (22-30); Chloride 103 mmol/L (98-107); Estimated CRCL calculation 116 ml/min; Estimated Glomerular Filt Rate > 60; Glucose 106 mg/dL (65-105); Potassium 3.8 mmol/L (3.4-5.0); Sodium 139 mmol/L (137-145)
[2020-10-24] MEDS: polyethylene glycoL 3350 17 GM POWD.PACK PO (12:55)
--- NOTE | 2020-10-24 17:02 | WPDGIPROGNO ---
Progress Note: A&P Assessment and Plan (1) Epigastric pain: Code(s): R10.13 - Epigastric pain Status: Acute Assessment and Plan: MRCP reviewed today and normal pancreatic duct, gallbladder distention, which may be secondary to fasting. will proceed with egd tomorrow to check if ulcer, gastritis, etc (2) Abnormal CT scan, colon: Code(s): R93.3 - Abnormal findings on diagnostic imaging of other parts of digestive tract Status: Acute Assessment and Plan: possible thickening of rectosigmoid area colonoscopy tomorrow (3) Intractable abdominal pain: Code(s): R10.9 - Unspecified abdominal pain Status: Acute Assessment and Plan: medical management scopes tomorrow (4) Nausea: Code(s): R11.0 - Nausea Status: Acute (5) Multiple sclerosis: Code(s): G35 - Multiple sclerosis Status: Acute (6) Atonic bladder: Code(s): N31.2 - Flaccid neuropathic bladder, not elsewhere classified Status: Acute (7) UTI (urinary tract infection): Qualifiers: Encounter type: initial encounter Indwelling urinary catheter type: cystostomy catheter Urinary tract infection type: catheter-associated UTI Qualified Code(s): T83.510A - Infection and inflammatory reaction due to cystostomy catheter, initial encounter; N39.0 - Urinary tract infection, site not specified Code(s): N39.0 - Urinary tract infection, site not specified Status: Acute Assessment and Plan: on antibiotics Subjective Date/time seen: 10/24/20 17:02 Interval history: yesterday had some pain in mid abdomen after eating turkey Review of Systems Review of Systems: All systems reviewed & are unremarkable except as noted in HPI and below Exam Const: General: comfortable and no acute distress Other: bedbound HENMT: General nose exam: Normal nares present Eyes: Pupils: Equal, round and reactive pupils present Resp: Auscultation: clear to auscultation bilaterally Cardio: Rate: regular rate GI: Inspection: non-distended GI Palp: Yes Soft to palpation, Yes Tenderness to palpation present (GI) (mild ttp in epigastric, no rebound) and No Guarding due to palpation present (GI) Auscultation: normal bowel sounds : Other: suprapubic catheter Skin: General skin exam: normal color Neuro: Speech: normal speech Motor exam (neuro): Abnormal motor strength present Other: h/o MS Extrem: General: no edema Psych: Affect: normal affect Objective Data Vital Signs Vital Signs: Vital Signs - 24 hr 10/23/20 20:19 10/23/20 20:55 10/23/20 21:07 Temperature 97.7 F Pulse Rate 75 75 77 Respiratory Rate 18 14 14 Blood Pressure 138/60 Pulse Oximetry 100 95 10/24/20 06:00 10/24/20 07:21 10/24/20 14:00 Temperature 98.0 F 97.5 F L Pulse Rate 72 73 76 Respiratory Rate 16 20 18 Blood Pressure 129/67 121/70 Pulse Oximetry 97 94 100 Intake/Output Intake/Output: Intake & Output 10/21/20 10/22/20 10/23/20 10/24/20 23:59 23:59 23:59 23:59 Intake Total 300 2390 840 Output Total 1600 2650 500 Balance -1300 -260 340 Meds/Results Medications: Active Medications Generic Name Dose Route Start Last Admin Trade Name Freq PRN Reason Stop Dose Admin Acetaminophen 650 mg 10/23/20 11:16 10/24/20 08:52 Acetaminophen 325 Mg Tablet PO 650 mg Q8H PRN Administration Headache Albuterol 2.5 mg 10/23/20 20:00 10/24/20 07:21 Albuterol Sulfate Neb 2.5 Mg/0.5 Ml Inh INHALATION 2.5 mg Q12HRT DANIELA Administration Albuterol 2 puff 10/23/20 01:14 Albuterol Sulfate (*Sp) Aerosol 1 Puff INHALATION Q4-6H PRN shortness of breath or wheezing Amlodipine Besylate 10 mg 10/23/20 09:00 10/24/20 08:41 Amlodipine Besylate 5 Mg Tablet PO 10 mg DAILY DANIELA Administration Atorvastatin Calcium 20 mg 10/23/20 09:00 10/24/20 08:41 Atorvastatin 20 Mg Tablet PO 20 mg DAILY DANIELA Administration Baclofen 10 mg
[2020-10-24] MEDS: diazePAM (*CRX) 5 MG TABLET 10 MG PO (17:18)
[2020-10-24] MEDS: BISACODYL 5 MG TABLET EC 20 MG PO (18:37)
[2020-10-24] MEDS: polyethylene glycoL 3350 238 GM BOTTLE PO (18:37)
[2020-10-24] MEDS: GABAPENTIN 300 MG CAPSULE 600 MG BY MOUTH (20:25)
[2020-10-25] VITALS (11 sets, daily range): BP systolic 119–160; BP diastolic 64–75; PULSE 76–97; RESP 16–18; TEMP 36.2–37; O2SAT 97–100
[2020-10-25] MEDS: metroNIDAZOLE 500 MG/ISO 100ML 500 MG/100 ML BAG 100 MG IVPB ×3 (02:00→16:56)
[2020-10-25] MEDS: MAGNESIUM CITRATE 300 ML BTL PO ×2 (03:54→11:57)
[2020-10-25] MEDS: CIPROFLOXACIN 400 MG/D5W 200ML 200 ML 200 MG IVPB ×2 (05:30→18:34)
[2020-10-25] MEDS: ALBUTEROL SULFATE NEB 2.5 MG/0.5 ML INH INHALATION ×2 (08:01→19:46)
[2020-10-25] MEDS: NABUMETONE 500 MG TABLET PO ×2 (09:03→16:56)
[2020-10-25] MEDS: BACLOFEN 10 MG TABLET PO ×2 (09:03→16:56)
[2020-10-25] MEDS: CARBAMAZEPINE XR 200 MG TAB.ER.12H PO ×2 (09:03→16:56)
[2020-10-25] MEDS: amLODIPine BESYLATE 5 MG TABLET 10 MG PO (09:03)
[2020-10-25] MEDS: LOSARTAN POTASSIUM 50 MG TABLET PO (09:03)
[2020-10-25] MEDS: LORATADINE 10 MG TABLET PO (09:03)
[2020-10-25] MEDS: PANTOPRAZOLE 40 MG TABLET PO ×2 (09:03→20:53)
[2020-10-25] MEDS: lamoTRIgine 25 MG TABLET PO (09:04)
[2020-10-25] MEDS: cycloSPORINE 0.4 ML OPHTH SOLUTION 1 DROP EACH EYE ×2 (09:04→20:53)
[2020-10-25] MEDS: ATORVASTATIN 20 MG TABLET PO (09:04)
[2020-10-25] MEDS: TOLNAFTATE 1% POWDER 45 GM BTL 1 APPLIC TOPICAL ×2 (09:05→16:56)
[2020-10-25] MEDS: LIDOCAINE 5% PATCH 1 PATCH TOPICAL (09:05)
[2020-10-25] MEDS: TRIAMCINOLONE ACET 0.1% CREAM 15 GM TUBE 1 APPLIC TOPICAL ×2 (09:05→16:56)
[2020-10-25] MEDS: ONDANSETRON INJ 4 MG/2 ML VIAL IV PUSH (09:50)
[2020-10-25] MEDS: GABAPENTIN 300 MG CAPSULE BY MOUTH (11:56)
--- NOTE | 2020-10-25 14:15 | WPDANESEPPF ---
Anes - Initial Pre Proc Eval Procedure: Operation Date: 10/25/20 14:30 Proposed Procedures p Esophagogastroduodenoscopy & Colonoscopy - Geoffrey Villela MD Date/Time: 10/25/20 14:15 Surgeon: Joelle Espitia PA-C Pre Op Diagnosis: UTI, Intractable Abdominal Pain Patient Data Age: 55 Gender: F Height: 5 ft 5 in Weight: 72.5 kg Last Vital Signs Temp 37.0 C 10/25/20 06:00 Pulse 76 10/25/20 08:14 Resp 16 10/25/20 08:14 BP 150/73 H 10/25/20 06:00 Pulse Ox 97 10/25/20 08:04 Allergies Allergy/AdvReac Type Severity Reaction Status Date / Time Sulfa (Sulfonamide Allergy Mild Swelling Verified 10/22/20 19:43 Antibiotics) prochlorperazine Allergy Unknown Sweating Verified 10/22/20 19:43 lisinopril Allergy Unknown Verified 10/22/20 19:43 ibuprofen AdvReac Unknown Nausea Verified 10/22/20 19:43 Home Medications Medication Instructions Recorded Confirmed Type Restasis 1 drp OPHTHALMIC (EYE) Q12H 03/30/19 10/22/20 History cetirizine 5 mg PO DAILY 03/30/19 10/22/20 History gabapentin See Rx Instructions .ROUTE .COMPLEX 03/30/19 10/22/20 History polyethylene glycol 3350 [Miralax] 17 g PO DAILY PRN 03/30/19 10/22/20 History lamotrigine 25 mg tablet 25 mg PO DAILY tablet 05/22/19 10/22/20 History lidocaine 5 % topical ointment 1 applic TOPICAL DAILY PRN 05/22/19 10/22/20 History diazepam 10 mg tablet 10 mg PO HS PRN #90 tablet 08/24/19 10/22/20 Rx triamcinolone acetonide 0.1 % 1 applic TOPICAL BID #60 ml 08/28/19 10/22/20 Rx lotion albuterol sulfate 90 mcg/actuation 2 puff INHALATION Q4-6H PRN #18 g 04/11/20 10/22/20 Rx aerosol inhaler budesonide-formoterol HFA 160 2 puff INHALATION BID #10.2 gm 05/06/20 10/22/20 Rx mcg-4.5 mcg/actuation aerosol inhaler albuterol sulfate 0.63 mg/3 mL 0.63 mg INHALATION BID #1080 ml 06/29/20 10/22/20 Rx solution for nebulization amlodipine 10 mg tablet 10 mg PO DAILY #90 tablet 06/29/20 10/22/20 Rx atorvastatin 20 mg tablet 20 mg PO DAILY #90 tablet 08/30/20 10/22/20 Rx omeprazole 20 mg tablet,delayed 20 mg PO DAILY #90 tablet 08/30/20 10/22/20 Rx release losartan 50 mg tablet 50 mg PO DAILY #90 tablet 09/02/20 10/22/20 Rx baclofen 10 mg tablet 10 mg PO TID #90 tablet 09/05/20 10/22/20 Rx nabumetone 500 mg tablet 500 mg PO BID #180 tablet 09/05/20 10/22/20 Rx carbamazepine 200 mg 200 mg PO Q12H #360 cap 09/28/20 10/22/20 Rx capsule,extended release [id number] nystatin 100,000 unit/gram topical 1 applic TOPICAL TID #60 g 10/20/20 10/22/20 Rx powder Patient hx anesthesia problems: none Family hx anesthesia problems: none PMFSH Past Medical History Medical History Abnormal CT scan, colon Allergies Anemia Asthma Asthma Bunion rt foot Cataract, right eye Clostridium difficile infection Contracture of toe rt foot Dilated pancreatic duct Ear infection Eczema Fibroids Fracture lt femur, lt tibia GERD (gastroesophageal reflux disease) Hyperlipidemia Hypertension Knee pain right knee after injury Methicillin resistant Staph aureus culture positive Multiple sclerosis Multiple sclerosis Onychomycosis Pneumonia Pressure ulcer of coccygeal region Pulmonary embolism Seasonal allergies Suprapubic catheter Suprapubic catheter UTI (urinary tract infection) Vitreous floater Left eye Wrist pain right Surgical History Surgical History H/O rotator cuff surgery rt H/O toe surgery History of bladder surgery History of mandibular surgery Hx of tubal ligation No significant past surgical history Family History Family History Sibling Patient's sister is in good health Heart disease Father Family history of malignant neoplasm Mother Type 2 diabetes mellitus Son Alive and well Daughter Alive and well Grandparent Breast cancer Other
[2020-10-25] MEDS: LACTATED RINGERS 1,000 ML 150 ML IV CONT (14:35)
[2020-10-25] MEDS: BENZOCAINE (*SP) 60 ML SPRAY CAN (HURRICAINE) 1 SPRAY MUCOUS MEM (15:07)
--- NOTE | 2020-10-25 15:22 | PM.IMPN ---
Progress Note: A&P Assessment and Plan (1) Intractable abdominal pain: Code(s): R10.9 - Unspecified abdominal pain Status: Acute Assessment and Plan: Persistent. MRCP showed normal pancreatic and common duct distended gallbladder, which may be due to fasting. CT also demonstrated rectal and distal sigmoid thickening. Appreciate gastroenterology consultation. Planning for EGD and colonoscopy this afternoon NPO for procedure. Advance diet per Gastroenterology Supportive care. Analgesics and antiemetics available as needed She has been started on Cipro and Flagyl for colitis. Will await results of colonoscopy (2) Urinary tract infection: Qualifiers: Hematuria presence: without hematuria Urinary tract infection type: acute cystitis Qualified Code(s): N30.00 - Acute cystitis without hematuria Code(s): N39.0 - Urinary tract infection, site not specified Status: Acute Assessment and Plan: Urine culture with growth of >100,000 CFU Pseudomonas aeruginosa. Likely secondary to suprapubic catheter which was exchanged upon presentation. Continue IV ciprofloxacin based on susceptibilities (3) Multiple sclerosis: Code(s): G35 - Multiple sclerosis Status: Acute Assessment and Plan: With associated muscular weakness. She is wheelchair bound and has a executive personal assistant who helps her with daily activities. Continue baclofen Supportive care (4) Atonic bladder: Code(s): N31.2 - Flaccid neuropathic bladder, not elsewhere classified Status: Acute Assessment and Plan: Secondary to MS. Continue suprapubic catheter (5) Hypertension: Qualifiers: Hypertension type: essential hypertension Qualified Code(s): I10 - Essential (primary) hypertension Code(s): I10 - Essential (primary) hypertension Status: Acute Assessment and Plan: Blood pressure reviewed and is stable. Last BP 130/73 Continue losartan and amlodipine Subjective Date/time seen: 10/25/20 15:22 Interval history: Date of service: 10/25/2020 Hayley Eduardo is a 55-year-old female with a history of multiple sclerosis, hypertension, hyperlipidemia who is seen in follow-up for abdominal pain. She reports 4/10 epigastric pain today. She reports frequent watery stools after undergoing colonoscopy prep. She feels weak. She denies nausea, vomiting, fever or chills. No dizziness or lightheadedness. Denies shortness of breath, cough, or chest pain. She has not eaten anything today and reports feeling hungry. Review of Systems Review of Systems: All systems reviewed & are unremarkable except as noted in HPI and below Exam Narrative: Exam Narrative: Ms. Eduardo is a chronically ill-appearing 55-year-old female who is lying supine in bed. She appears comfortable and is in NARD. Neuro: awake, alert and oriented x4, speech is slow and soft, no focal neuro deficits noted, left arm is flaccid, right arm is contracted. HEENMT: normocephalic, atraumatic, EOMI, sclerae anicteric, moist oral mucosa, tongue midline, nares patent Neck: supple, no lymphadenopathy Respiratory: clear to auscultation anteriorly, nonlabored breathing Cardio: regular rate, regular rhythm with S1-S2 Abdomen: nondistended, normoactive bowel sounds, soft, tender to palpation in epigastric region, no rigidity or guarding : suprapubic catheter in place draining straw-colored urine Extremities: no edema, erythema, cyanosis, clubbing, or tenderness to palpation. DP pulses 2+ bilaterally Skin: no rashes or lesions, warm and dry Psych: appropriate mood and affect, judgment and insight intact Objective Data Vital Signs Vital Signs: Vital Signs - 24 hr 10/24/20 20:20 10/24/20 20:30 10/24/20 20:34 Temperature 97.3 F L Pulse Rate 77 76 76 Respiratory Rate 18 20 Blood Pressure 136/63 Pulse Oximetry 100 95 10/24/20 20:39 10/25/20 06:00 10/25/20
[2020-10-25] MEDS: GABAPENTIN 300 MG CAPSULE 600 MG BY MOUTH (20:52)
[2020-10-25] MEDS: ACETAMINOPHEN 325 MG TABLET 650 MG PO (20:53)
[2020-10-25] MEDS: diazePAM (*CRX) 5 MG TABLET 10 MG PO (20:54)
[2020-10-26 01:43] VITALS: BP 159/72
[2020-10-26] MEDS: metroNIDAZOLE 500 MG/ISO 100ML 500 MG/100 ML BAG 100 MG IVPB (02:55)
[2020-10-26 05:58] LABS: Anion Gap 5 mmol/L (8-16); Blood Urea Nitrogen 11 mg/dL (7-17); Calcium 8.6 mg/dL (8.4-10.2); Carbon Dioxide 32 mmol/L (22-30); Chloride 103 mmol/L (98-107); Estimated CRCL calculation 116 ml/min; Estimated Glomerular Filt Rate > 60; Glucose 87 mg/dL (65-105); Hematocrit 41.3 % (37.0-47.0); Hemoglobin 13.1 g/dL (12.0-15.0); Potassium 3.7 mmol/L (3.4-5.0); Sodium 140 mmol/L (137-145)
[2020-10-26 06:15] VITALS: BP 132/61; PULSE 76; RESP 16; TEMP 36.3; O2SAT 100
[2020-10-26] MEDS: CIPROFLOXACIN 400 MG/D5W 200ML 200 ML 200 MG IVPB (06:39)
--- NOTE | 2020-10-26 07:46 | WPDANESPN ---
Anes - Prog Note Post-Op Date/Time: 10/26/20 07:46 Cardiovascular status: normal Respiratory status: normal Airway patency: baseline Mental status: baseline Post-Op hydration status: normal Vital Signs: Last Vital Signs Temp 97.3 F L 10/26/20 06:15 Pulse 76 10/26/20 06:15 Resp 16 10/26/20 06:15 BP 132/61 10/26/20 06:15 Pulse Ox 100 10/26/20 06:15 Pain Score (VAS): 0 I/O: Intake & Output 10/25/20 10/25/20 10/26/20 15:59 23:59 07:59 Intake Total 500 420 100 Output Total 600 Balance 500 420 -500 Laboratory Tests 10/26/20 05:28 10/26/20 05:28 10/26/20 10/26/20 05:28 05:28 Hgb 13.1 Hct 41.3 Sodium 140 Potassium 3.7 Chloride 103 Carbon Dioxide 32 H Anion Gap 5 L BUN 11 Creatinine 0.40 L Estim Creat Clear Calc 116 Estimated GFR > 60 Glucose 87 Calcium 8.6 Post-procedural complaints: none Patient Feedback: Patient satisfied with anesthetic care.
[2020-10-26 08:35] VITALS: PULSE 72; RESP 16
[2020-10-26 08:45] VITALS: PULSE 82; RESP 16
[2020-10-26] MEDS: PANTOPRAZOLE 40 MG TABLET PO (08:48)
[2020-10-26] MEDS: amLODIPine BESYLATE 5 MG TABLET 10 MG PO (08:48)
[2020-10-26] MEDS: lamoTRIgine 25 MG TABLET PO (08:48)
[2020-10-26] MEDS: CARBAMAZEPINE XR 200 MG TAB.ER.12H PO (08:48)
[2020-10-26] MEDS: LIDOCAINE 5% PATCH 1 PATCH TOPICAL (08:48)
[2020-10-26] MEDS: GABAPENTIN 300 MG CAPSULE BY MOUTH (08:48)
[2020-10-26] MEDS: LORATADINE 10 MG TABLET PO (08:49)
[2020-10-26] MEDS: BACLOFEN 10 MG TABLET PO ×2 (08:49→13:21)
[2020-10-26] MEDS: NABUMETONE 500 MG TABLET PO (08:49)
[2020-10-26] MEDS: cycloSPORINE 0.4 ML OPHTH SOLUTION 1 DROP EACH EYE (08:49)
[2020-10-26] MEDS: ATORVASTATIN 20 MG TABLET PO (08:49)
[2020-10-26] MEDS: LOSARTAN POTASSIUM 50 MG TABLET PO (08:49)
[2020-10-26] MEDS: TRIAMCINOLONE ACET 0.1% CREAM 15 GM TUBE 1 APPLIC TOPICAL (08:49)
[2020-10-26] MEDS: TOLNAFTATE 1% POWDER 45 GM BTL 1 APPLIC TOPICAL ×2 (08:50→13:22)
[2020-10-26] MEDS: ALBUTEROL SULFATE NEB 2.5 MG/0.5 ML INH INHALATION (10:40)
[2020-10-26 14:00] VITALS: BP 120/60; PULSE 79; RESP 14; TEMP 36.2; O2SAT 98
--- NOTE | 2020-10-26 15:51 | PM.DS ---
DS: Admitting Diagnosis Admitting Diagnosis Admitting Diagnosis: Abdominal pain DS: Discharge Diagnosis Discharge Diagnosis (1) Intractable abdominal pain: Code(s): R10.9 - Unspecified abdominal pain Status: Acute Assessment and Plan: Presented with persistent epigastric pain. Showed pancreatic duct prominence. Follow-up MRCP showed normal pancreatic and common duct with distended gallbladder, which may be due to fasting. CT abdomen/pelvis also suggested colitis, therefore she was started on Cipro and Flagyl. She underwent EGD and colonoscopy by Dr. Ram on 10/25/2020. EGD showed moderate localized erosive gastritis, which explains pain. Colonoscopy with poor prep, however no evidence of colitis was seen, and IV Flagyl was discontinued. She will need repeat colonoscopy in 1 year. Symptoms improved and she was able to tolerate a bland diet. (2) Erosive gastritis: Code(s): K29.60 - Other gastritis without bleeding Status: Acute Assessment and Plan: Evident on EGD and is the most likely source of her epigastric pain. She was started on Protonix b.i.d. (3) Urinary tract infection: Qualifiers: Hematuria presence: without hematuria Urinary tract infection type: acute cystitis Qualified Code(s): N30.00 - Acute cystitis without hematuria Code(s): N39.0 - Urinary tract infection, site not specified Status: Acute Assessment and Plan: Urine culture with growth of >100,000 CFU Pseudomonas aeruginosa. Likely secondary to suprapubic catheter which was exchanged upon presentation. She was treated with IV ciprofloxacin to complete a 5 day course (4) Multiple sclerosis: Code(s): G35 - Multiple sclerosis Status: Acute Assessment and Plan: With associated muscular weakness. She is wheelchair bound and has a certified personal finance counselor who helps her with daily activities. 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 Continue suprapubic catheter (6) Hypertension: Qualifiers: Hypertension type: essential hypertension Qualified Code(s): I10 - Essential (primary) hypertension Code(s): I10 - Essential (primary) hypertension Status: Acute Assessment and Plan: Blood pressure reviewed and remained stable. Continue losartan and amlodipine DS: Summary Hospital Course Reason for hospitalization: Epigastric pain Hospital Course: Date of admission: 10/22/2020 Date of discharge: 10/26/2020 Hayley Eduardo is a 55-year-old female with a history of multiple sclerosis, hypertension, and hyperlipidemia presented to the emergency department on 10/22/2020 due to abdominal pain that she rated as 8/10 in severity. Upon presentation to the emergency department, her vital signs were stable, she was afebrile, CBC and BMP were unremarkable, total bilirubin was normal, troponin negative, lipase within normal limits, UA was abnormal, CXR showed mild atelectasis, and CT of the abdomen/pelvis showed pancreatic duct prominence with nonspecific thickening of the rectal and distal sigmoid colon. She was admitted to the hospitalist service for further evaluation and management was seen in consultation by Gastroenterology. Please see above for further details. She underwent EGD which demonstrated gastritis and this was felt to be the source of her pain. Her symptoms did improve and she was able to tolerate a bland diet. She was also treated for UTI. She began feeling better and requested discharge home. Given her overall improvement, she was determined to no longer require inpatient care and was felt to be stable for discharge. We discussed worrisome signs and symptoms for which to return and she was educated on her medications. She was discharged in hemodynamically stable condition on 10/26/2020. Wilbur
--- NOTE | 2020-10-26 16:15 | WPDGIPROGNO ---
Progress Note: A&P Assessment and Plan (1) Erosive gastritis: Code(s): K29.60 - Other gastritis without bleeding Status: Acute Assessment and Plan: probably cause of abdominal pain and nausea she can go home with protonix twice daily (or equivalent), tolerating diet (2) Epigastric pain: Code(s): R10.13 - Epigastric pain Status: Acute Assessment and Plan: MRCP showed normal pancreas most likely from egd findings (3) Abnormal CT scan, colon: Code(s): R93.3 - Abnormal findings on diagnostic imaging of other parts of digestive tract Status: Acute Assessment and Plan: normal colon mucosa, no colitis repeat colonoscopy in 1 year but mostly because poor bowel prep (4) Intractable abdominal pain: Code(s): R10.9 - Unspecified abdominal pain Status: Acute Assessment and Plan: improving advancing diet (5) Nausea: Code(s): R11.0 - Nausea Status: Acute (6) Multiple sclerosis: Code(s): G35 - Multiple sclerosis Status: Acute (7) Atonic bladder: Code(s): N31.2 - Flaccid neuropathic bladder, not elsewhere classified Status: Acute (8) UTI (urinary tract infection): Qualifiers: Encounter type: initial encounter Indwelling urinary catheter type: cystostomy catheter Urinary tract infection type: catheter-associated UTI Qualified Code(s): T83.510A - Infection and inflammatory reaction due to cystostomy catheter, initial encounter; N39.0 - Urinary tract infection, site not specified Code(s): N39.0 - Urinary tract infection, site not specified Status: Acute Assessment and Plan: on antibiotics Subjective Date/time seen: 10/26/20 16:15 Interval history: egd showed non-bleeding gastric ulcers with moderate erosive gastritis, colonoscopy poor prep and one polyp removed, no colitis Review of Systems Review of Systems: All systems reviewed & are unremarkable except as noted in HPI and below Exam Const: General: comfortable and no acute distress Other: bedbound HENMT: General nose exam: Normal nares present Eyes: Pupils: Equal, round and reactive pupils present Resp: Auscultation: clear to auscultation bilaterally Cardio: Rate: regular rate GI: Inspection: non-distended GI Palp: Yes Soft to palpation and No Guarding due to palpation present (GI) Auscultation: normal bowel sounds : Other: suprapubic catheter Skin: General skin exam: normal color Neuro: Speech: normal speech Motor exam (neuro): Abnormal motor strength present Other: h/o MS Extrem: General: no edema Psych: Affect: normal affect Objective Data Vital Signs Vital Signs: Vital Signs - 24 hr 10/25/20 19:49 10/25/20 19:53 10/25/20 20:41 Temperature 98.2 F Pulse Rate 90 97 Respiratory Rate 16 18 Blood Pressure 160/73 H Pulse Oximetry 98 97 10/26/20 01:43 10/26/20 06:15 10/26/20 08:35 Temperature 97.3 F L Pulse Rate 76 72 Respiratory Rate 16 16 Blood Pressure 159/72 H 132/61 Pulse Oximetry 100 10/26/20 08:45 10/26/20 14:00 Temperature 97.2 F L Pulse Rate 82 79 Respiratory Rate 16 14 Blood Pressure 120/60 Pulse Oximetry 98 Intake/Output Intake/Output: Intake & Output 10/23/20 10/24/20 10/25/20 10/26/20 23:59 23:59 23:59 23:59 Intake Total 2390 1140 1820 540 Output Total 2650 1350 1300 600 Balance -260 -210 520 -60 Meds/Results Medications: Active Medications Generic Name Dose Route Start Last Admin Trade Name Yusufq PRN Reason Stop Dose Admin Acetaminophen 650 mg 10/23/20 11:16 10/25/20 20:53 Acetaminophen 325 Mg Tablet PO 650 mg Q8H PRN Administration Headache Albuterol 2.5 mg 10/23/20 20:00 10/26/20 10:40 Albuterol Sulfate Neb 2.5 Mg/0.5 Ml Inh INHALATION 2.5 mg Q12HRT DANIELA Administration Albuterol 2 puff 10/23/20 01:14 Albuterol Sulfate (*Sp) Aerosol 1 Puff INHALATION Q4-6H PRN shortness of breath or whe
== END 2020-10-26 17:20 | disposition home health service (06) ==
LOC: ANHED 17:14 → ANH3MED 17:52
PROVIDERS: Internal Medicine Gastroenterology; Physician Assistant; Admitting Provider Family Medicine; Emergency Provider Nurse Practitioner; PCP Internal Medicine; Visit Provider Internal Medicine
PROC: 0DJ08ZZ Inspection of Upper Intestinal Tract, Via Natural or Artificial Opening Endoscopic (ICD-10-PCS; CPT 43235; principal; 2020-10-25 14:30)
DX: K29.60 Other gastritis without bleeding (principal); D12.3 Benign neoplasm of transverse colon; N30.00 Acute cystitis without hematuria; B96.5 Pseudomonas (aeruginosa) (mallei) (pseudomallei) as the cause of diseases classified elsewhere; K21.9 Gastro-esophageal reflux disease without esophagitis; R10.13 Epigastric pain; I10 Essential (primary) hypertension; G35 Multiple sclerosis; N31.2 Flaccid neuropathic bladder, not elsewhere classified; K44.9 Diaphragmatic hernia without obstruction or gangrene
CPT/HCPCS: 43239; 45385; 36415; 51702; 71045; 74177; 74181; 76376; 80048; 80053; 81001; 83690; 84484; 85014; 85018; 85025; 87077; 87081; 87086; 87088; 87186; 88305; 93005; 94640; 96361; 96365; 96366; 96367; 96375; 96376; 99285; A9270; G0378; J0744; J2270; J2405; J2704; J7030; J7120; Q9967

== ENCOUNTER 2020-12-14 11:20 | Outpatient (CLI) | payer MEDICARE, MEDICAID, SELFPAY ==
--- NOTE | ~2020-12-14 | CT_ITS ---
EXAMINATION: CT facial bones wo con EXAM DATE: 12/14/2020 12:11 INDICATION: H57.12 - Ocular pain, left eye. TECHNIQUE: Spiral CT of the facial bones was acquired in the axial plane without contrast. Coronal r eformatted images were also reviewed. The dose-length product (DLP) for this examination was 422.84 mGy-cm. The exposure was tailored according to patient size, and iterative reconstruction (ASIR) was used as additional dose reduction technique. There is no prior study for comparison. FINDINGS: There are no displaced acute nasal bone fractures. The mandible, sinuses and orbits are in tact. Patient has had right-sided cataract surgery. The globes are symmetric in the retrobulbar fat planes are clear. The extraocular muscles and optic nerves are unremarkable. Mild ethmoid mucoperiosteal thickening. Significant multilevel right-sided neural foraminal stenosis of the upper cervical spine. 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 Moderate le ftward nasal septal deviation. IMPRESSION: Unremarkable globes, orbits. Reviewed, dictated and finalized at location B.
== END 2020-12-14 11:21 | disposition home or self-care (01) ==
LOC: ANHIMG 11:22
PROVIDERS: PCP Internal Medicine; Visit Provider Nurse Practitioner
DX: H57.12 Ocular pain, left eye (principal); M19.09 Primary osteoarthritis, other specified site
CPT/HCPCS: 70486

== ENCOUNTER 2021-01-04 03:34 | Inpatient (IN) | payer MEDICARE, MEDICAID, SELFPAY ==
[2021-01-04] VITALS (8 sets, daily range): BP systolic 126–157; BP diastolic 66–93; PULSE 80–108; RESP 14–20; TEMP 35.7–36.6; O2SAT 95–100; BMI 27.2
--- NOTE | ~2021-01-04 | CT_ITS ---
EXAMINATION: CT abdomen pelvis w con DATE: 01/04/2021 06:24 INDICATION: Abdominal pain and nausea TECHNIQUE: Computed tomography (CT) of the abdomen and pelvis was performed with 100 cc Omnipaque 350 intravenous contrast. The dose-length product was 779.53 mGy-cm. Automated exposure control and iter ative reconstruction technique were employed. COMPARISON: CT dated 10/22/2020. FINDINGS: Small right pleural effusion. Bibasilar airspace disease, most likely atelectasis. Heart si ze normal. Gallbladder is distended. No definite gallstones. The liver, spleen, pancreas, adrenal glands are unr emarkable. There are subcentimeter hypodensities of the kidneys, most likely benign cysts. There is a bnormal gastric wall thickening, suspicious for gastritis. The stomach is low-lying. There is a supra pubic catheter. Nonobstructive bowel gas pattern. There is soft tissue extending posteriorly from the rectum to what appears to be a decubitus ulcer posteriorly. No evidence for abscess. There are degen erative changes of the hips. No free air. Small fat-containing umbilical hernia. Small low-density le sions in the liver, most likely benign cysts. No significant vascular abnormality. No lymphadenopathy . IMPRESSION: 1. Abnormal thickening of the gastric wall, suspicious for gastritis. 2: Prominent soft tissue extending posteriorly from the rectum to the skin surface with probable over lying decubitus ulcer. Correlate clinically. No associated abscess. 3: Gallbladder distention, nonspecific. Reviewed, dictated and finalized at location A. IMPRESSION: 1. Abnormal thickening of the gastric wall, suspicious for gastritis. 2: Prominent soft tissue extending posteriorly from the rectum to the skin surf karri with probable overlying decubitus ulcer. Correlate clinically. No associate d abscess. 3: Gallbladder distention, nonspecific.
--- NOTE | ~2021-01-04 | NM_ITS ---
EXAMINATION: NM hepatobiliary w pharm DATE: 01/06/2021 15:00 INDICATION: Abdominal pain. COMPARISON: Abdomen ultrasound 01/04/2021 TECHNIQUE: 5.5 mCi Tc-99m mebrofenin (Choletec) was administered intravenously. Scintigraphic images of the abdomen were obtained for one hour. Then, 1.5 mcg sincalide (Kinevac) IV was administered, an d imaging was continued for 30 minutes. FINDINGS: There is normal clearance of radiotracer from the blood pool. There is homogeneous tracer u ptake by the liver. Activity progresses to the bowel and gallbladder. Gallbladder ejection fraction (GBEF) was 0%. Note that most patients with gallbladder dysfunction have GBEF < 35%, which overlaps w ith the broad normal range of 10-90%. IMPRESSION: 1. Low gallbladder ejection fraction, consistent with gallbladder dysfunction and/or chronic cholecy stitis. Reviewed, dictated and finalized at location B. IMPRESSION: 1. Low gallbladder ejection fraction, consistent with gallbladder dysfunction and/or chronic cholecystitis.
--- NOTE | ~2021-01-04 | XR_ITS ---
EXAMINATION: XR catheter cholangiogram DATE: 01/13/2021 09:02 INDICATION: Gallbladder dysfunction. TECHNIQUE: I injected the percutaneous cholecystostomy tube with Omnipaque 240 contrast. 6 fluoroscop ic images of the abdomen were obtained. The fluoroscopy exposure time was 0.2 minutes. COMPARISON: CT abdomen and pelvis 01/04/2021 FINDINGS: The percutaneous cholecystostomy tube is in expected position. The gallbladder is decompres sed. The cystic duct and common duct are patent. The common duct is normal in caliber. Contrast passe s to the duodenum. IMPRESSION: 1. Normal cholecystostomy tube cholangiogram. Reviewed, dictated and finalized at location A.
--- NOTE | ~2021-01-04 | US_ITS ---
US right upper quadrant DATE: 01/04/2021 18:06 INDICATION: Abdominal pain. Distended gallbladder reported on 01/04/2021 CT abdomen pelvis examination . TECHNIQUE: Real-time imaging of liver, pancreas, gallbladder areas COMPARISON: 01/04/2021 CT abdomen pelvis FINDINGS: No hepatic or pancreatic space-occupying mass lesion is evident. The common bile duct measures 4.1 mm, normal. No gallbladder wall thickening or gallstones or abnormal pericholecystic fluid collection is evident. Negative sonographic Godinez's sign. IMPRESSION: No significant abnormality Reviewed, dictated and finalized at Location A. Reviewed, dictated and finalized at location A. IMPRESSION: No significant abnormality
--- NOTE | ~2021-01-04 | US_ITS ---
EXAMINATION: US perc cholecystostomy w imag DATE: 01/09/2021 13:20 INDICATION: Cholecystitis. TECHNIQUE: The procedure including the risks, benefits, and alternatives was discussed with the patie nt. Risks discussed included bleeding including bleeding and infection. Oral and written consent were obtained. A timeout was performed to verify the patient's name, date of , and procedure to b e performed. The patient was confirmed to be receiving appropriate antibiotic coverage. The skin ove rlying the liver and gallbladder was prepped and draped in usual sterile fashion. Anesthetic was adm inistered with 1% lidocaine subcutaneously. An 8.5 Fr catheter was inserted through liver parenchyma into the gallbladder by trocar technique. The metal stiffener and trocar needle were removed, and th e pigtail tip was locked. Bile was aspirated and sent for culture. The catheter was stitched to the s kin with suture. There were no immediate complications. FINDINGS: Ultrasound images demonstrate the catheter within the gallbladder. 5 mL bile was aspirated. IMPRESSION: 1. Successful ultrasound-guided cholecystostomy tube placement. 2. 5 mL brown-black bile was sent for aerobic and anaerobic cultures. 3. The catheter will be managed by Dr. Hernandez. A catheter cholangiogram may be performed not less than 48 hours after tube placement if clinically indicated to assess cystic duct patency. If cholecystecto my is not eventually performed and the infectious episode has resolved, the tube may be removed over a guidewire, preferably not less than 3 weeks after placement to allow time for a mature catheter tra ct to form to prevent bile leakage and peritonitis. Reviewed, dictated and finalized at location A. IMPRESSION: 1. Successful ultrasound-guided cholecystostomy tube placement. 2. 5 mL brown-black bile was sent for aerobic and anaerobic cultures. 3. The catheter will be managed by Dr. Hernandez. A catheter cholangiogram may be pe rformed not less than 48 hours after tube placement if clinically indicated to assess cystic duct patency. If cholecystectomy is not eventually performed and the infectious episode has resolved, the tube may be removed over a guidewire, preferably not less than 3 weeks after placement to allow time for a mature cat heter tract to form to prevent bile leakage and peritonitis.
[2021-01-04 03:58] LABS: Add Urine Microscopic? YES; Appearance Urine Cloudy (Clear); Bilirubin Urine Negative (Negative); Blood Urine 3+ (Negative); Color Urine Yellow (Yellow); Glucose Urine UA Negative (Negative); Ketones Urine Negative (Negative); Leukocyte Esterase Ur 3+ LEU/UL (Negative); Mucus Urine Rare /lpf; Nitrate Urine Negative (Negative); Protein Urine 1+ mg/dL (Negative); RBC Urine 0-2 /hpf (0-2); Specific Grav Ur 1.013 (1.001-1.035); Squamous Epithelial Cell Urine Few /hpf (Few); Urobilinogen Urine Negative mg/dL (<2.0); WBC Urine 21-30 /hpf
[2021-01-04 05:00] LABS: Basophils Percent Auto 0.5 % (0.2-1.2); Eosinophils Absolute Auto 0.2 K/mm3 (0-0.3); Eosinophils Percent Auto 1.7 % (0-4.4); Hematocrit 42.5 % (37.0-47.0); Hemoglobin 13.5 g/dL (12.0-15.0); Immature Granulocyte Absolute 0.03 K/mm3 (0.00-0.031); Immature Granulocyte Percent A 0.3 % (0-0.5); Lymphocytes Percent Auto 16.3 % (18.3-44.2); Mean Corpuscular HGB Conc 31.8 g/dl (32-36); Mean Corpuscular Hemoglobin 29.9 pg (26-34); Mean Corpuscular Volume 94.2 fl (80-100); Monocytes Absolute Auto 0.7 K/mm3 (0.1-0.6); Monocytes Percent Auto 7.8 % (2.6-8.5); Neutrophils Absolute Auto 6.3 K/mm3 (1.3-6.7); Neutrophils Percent Auto 73.4 % (45.5-73.1); Platelet Count Result 262 k/mm3 (150-375); Red Blood Count 4.51 M/mm3 (4.2-5.4); Red Cell Distribution Width 13.2 % (11.5-14.5); White Blood Count 8.6 K/mm3 (4.5-10.0)
[2021-01-04 05:17] LABS: Alanine Aminotransferase 19 U/L (4-35); Albumin Level 4.2 g/dL (3.5-5.1); Alkaline Phosphatase 156 U/L (38-126); Anion Gap 5 mmol/L (8-16); Aspartate Amino Transferase 26 U/L (14-36); Bilirubin,Total 0.3 mg/dL (0.2-1.3); Blood Urea Nitrogen 14 mg/dL (7-17); Calcium 10.2 mg/dL (8.4-10.2); Carbon Dioxide 32 mmol/L (22-30); Chloride 101 mmol/L (98-107); Estimated CRCL calculation 148 ml/min; Estimated Glomerular Filt Rate > 60; Glucose 116 mg/dL (65-110); Lipase 168 U/L (23-300); Potassium 3.5 mmol/L (3.4-5.0); Sodium 138 mmol/L (137-145)
[2021-01-04] MEDS: ONDANSETRON INJ 4 MG/2 ML VIAL IV PUSH (06:04)
[2021-01-04] MEDS: SODIUM CHLORIDE 0.9% IV 1,000 ML 999 ML IV CONT (06:04)
[2021-01-04] MEDS: MORPHINE SULFATE (*CRX) 4 MG/ML INJ IV PUSH (06:04)
--- NOTE | 2021-01-04 06:45 | ED.GENADULT ---
HPI - General Adult General Chief complaint: Abdominal Pain Stated complaint: abd pain, n/v Time Seen by Provider: 01/04/21 05:12 History of Present Illness HPI narrative: Patient 55-year-old female presents emergency department with chief complaint of abdominal pain. Patient reports she has history of MS reports that she has been having discomfort throughout her abdomen is reports she has been having abdominal discomfort. Patient states that the pain is not improved by anything nor is it worsened by anything reports that she has a suprapubic catheter and occasionally gets UTIs. Patient reports that she help is hospitalized recently and had a pseudomonal UTI at that time she was treated with Cipro and was feeling better reports now that she has discomfort in her bladder area as well. Patient reports that her MS is currently at her baseline. Related Data Home Medications Medication Instructions Recorded Confirmed Restasis 1 drp OPHTHALMIC (EYE) Q12H 03/30/19 11/22/20 cetirizine 5 mg PO DAILY 03/30/19 11/22/20 gabapentin See Rx Instructions .ROUTE .COMPLEX 03/30/19 11/22/20 polyethylene glycol 3350 [Miralax] 17 g PO DAILY PRN 03/30/19 11/22/20 lamotrigine 25 mg tablet 25 mg PO DAILY tablet 05/22/19 11/22/20 lidocaine 5 % topical ointment 1 applic TOPICAL DAILY PRN 05/22/19 11/22/20 Allergies Allergy/AdvReac Type Severity Reaction Status Date / Time Sulfa (Sulfonamide Allergy Mild Swelling Verified 10/25/20 14:33 Antibiotics) prochlorperazine Allergy Unknown Sweating Verified 10/25/20 14:33 lisinopril Allergy Unknown Verified 10/25/20 14:33 ibuprofen AdvReac Unknown Nausea Verified 10/25/20 14:33 Review of Systems Review of Systems: A 10 system review of systems was completed on the patient and is negative except for what is stated in the HPI. Nursing and ancillary documentation was reviewed. [facility] Past Medical History Medical History Abnormal CT scan, colon Allergies Anemia Asthma Asthma Bunion rt foot Cataract, right eye Clostridium difficile infection Contracture of toe rt foot Dilated pancreatic duct Ear infection Eczema Erosive gastritis Fibroids Fracture lt femur, lt tibia GERD (gastroesophageal reflux disease) Hyperlipidemia Hypertension Knee pain right knee after injury Methicillin resistant Staph aureus culture positive Multiple sclerosis Multiple sclerosis Onychomycosis Pneumonia Pressure ulcer of coccygeal region Pulmonary embolism Seasonal allergies Suprapubic catheter Suprapubic catheter UTI (urinary tract infection) Vitreous floater Left eye Wrist pain right Surgical History Surgical History H/O rotator cuff surgery rt H/O toe surgery History of bladder surgery History of mandibular surgery Hx of tubal ligation No significant past surgical history Family History Family History Sibling Patient's sister is in good health Heart disease Father Family history of malignant neoplasm Mother Type 2 diabetes mellitus Son Alive and well Daughter Alive and well Grandparent Breast cancer Other Cerebrovascular accident Diabetes mellitus Family history of arthritis Family history of cardiovascular disease Hypertension Social History Social History Smoking status: Never smoker Second hand tobacco smoke exposure: No Alcohol intake: current Drinks per week: 1 Substance use: never Substance use type: does not use Gender identity (if verbalized by the patient): Female Spiritual care concerns: No Agree to blood products: Yes Exam Narrative: GENERAL: Well-appearing, well-nourished, and in no acute distress. HEAD: Normocephalic, atraumatic. EYES: PERRLA and EOMI. ENT: Nares clear, no rhinorrh
--- NOTE | 2021-01-04 10:00 | ADMGEN ---
This patient, Hayley Eduardo, was admitted to 3 [facility] Surg Room 316-01. Patient/family oriented to hospital policies and general routines including ID bracelet, bed and alarms, visiting hours, pain management, procedures, bathroom and other care routines, personal items, smoking policy, room service/diet, and visiting hours. Information on how to activate the Rapid Response Team has been discussed. Patient/Family are encouraged to report perceived risks to care and to ask questions if they do not understand what they are told or what they should do.
[2021-01-04] MEDS: SODIUM CHLORIDE 0.9% IV 1,000 ML 125 ML IV CONT ×2 (10:21→18:27)
--- NOTE | 2021-01-04 13:00 | PM.IMHP ---
H&P: HPI History of Present Illness Date/Time: PATIENT ADMITTED UNDER OBSERVATION STATUS 01/04/21 13:00 Chief Complaint: ?Severe pain in my stomach? Narrative: 55-year-old female with severe MS and neurogenic bladder with suprapubic catheter was brought in by EMS for abdominal pain. Patient was seen here in October for abdominal pain. CT scan showed possible colitis. She was seen by GI and underwent EGD which showed erosive gastritis. Colonoscopy was poor prep but there was no evidence of colitis. She was discharged home on Protonix twice a day which she has been taking regularly. She has not been hospitalized since that time. She was doing well until 2 days prior to admission when she developed mild abdominal pain that has progressively worsened. She describes the pain as dull. She was able to tolerate some soup which seemed to make the pain better. Nothing seemed to make it worse. She having subjective fever and chills. Also with nausea but no vomiting. She has been constipated. No diarrhea. No melena hematochezia. She did have a large stool last evening but no benefit to the abdominal pain. She has a suprapubic catheter in place for her neurogenic bladder. Urine has been dark in color but no hematuria. She has been taking Tums and Gas-X without benefit. She denies any anosmia or dysgeusia. She has not been exposed to anyone with COVID that she is aware of. She has not been vaccinated. She has been having issues with swallowing. Takes her multiple swallows per bite. She denies any mid esophageal dysphagia. No chest pain, palpitations, shortness of breath or cough. No headaches. She sees Dr. Carr at [facility] for her MS but she is currently not on treatment. She cannot stand or walk. She is mostly in a wheelchair. She can feed herself finger foods. Also of note is that she has been having increasing tearing to the eyes which began 3 days ago. She was treated for a left eye stye with an ointment over 7 days ago although there is a report in the chart from over a month ago when this was being evaluated initially. Patient denies any vision loss. No trauma to the eye. She does have occasional pain to the eye but is mostly itchy. CT of the face showing normal globes 12/15/20. She does use Restasis eyedrops chronically. Possibly mild slight sensitivity to light. She has had a right cataract surgery few years ago. She also had left eyelid surgery 1-2 years ago. Because of the worsening abdominal pain, patient brought to the emergency room for evaluation. Patient is afebrile. Vital signs are stable. Labs were unrevealing. Urinalysis showed 3+ blood, 3+ leukocyte esterase and 21-30 white cells. Urine culture collected. CT of the abdomen pelvis showed abnormal thickening of the gastric wall suspicious for gastritis. She also had a prominent soft tissue extending posteriorly from the rectum to the skin surface consistent with a lnown decubitus ulcer. She also has nonspecific gallbladder distention. Patient states however her pain is mostly on the left side of her abdomen. Gallbladder distention was noted back in October as well. She was started on Cefepime for UTI and admitted for further care. Review of Systems Review of Systems: All systems reviewed & are unremarkable except as noted in HPI and below PMFSH Past Medical History Medical History Abnormal CT scan, colon Anemia Asthma Bunion rt foot Cataract, right eye Clostridium difficile infection Contracture of toe rt foot Dilated pancreatic duct Ear infection Eczema Erosive gastritis Fibroids Fracture lt femur, lt tibia GERD (gastroesophageal reflux disease) Hyperlipidemia Hypertension Knee pain right knee after injury Methicillin resistant Staph aureus culture positive Multiple sclerosis Onychomycosis Pneumonia Pressure ulcer of coccygeal region Pulmonary embolism Seas
--- NOTE | 2021-01-04 15:35 | WPDGICN ---
Assessment and Plan Assessment and plan (1) Generalized abdominal pain: Code(s): R10.84 - Generalized abdominal pain Status: Acute Assessment and Plan: she acknowledges that her constipation seems to cause discomfort from time to time. I agree that it would be beneficial to further investigate for possible gallbladder disease. Ultrasound has been ordered. I think we should also consider HIDA scan (2) UTI (urinary tract infection): Qualifiers: Hematuria presence: without hematuria Urinary tract infection type: site unspecified Qualified Code(s): N39.0 - Urinary tract infection, site not specified Code(s): N39.0 - Urinary tract infection, site not specified Status: Acute Assessment and Plan: she states that these infections cause her to have discomfort in lower abdomen from time to time, as does her constipation issue (3) Constipation: Code(s): K59.00 - Constipation, unspecified Status: Acute Assessment and Plan: constipation is a notorious and sometimes very difficult problem in patients with MS. She may very well need stronger medications such as Linzess to maintain regularity. GI Consult Note Consult date/time: 01/04/21 15:35 HPI: Hayley Eduardo is a Very pleasant 55 year old female who was admitted early this morning with abdominal pain. The patient has chronic multiple sclerosis. She is almost not quite bed ridden. She does use a wheelchair and is able to get up to go to the bathroom. She states that she has become very constipated lately. She generally takes 2 stool softeners twice a day and MiraLax every couple of days. She was having some abdominal discomfort on Saturday and yesterday had a large bowel movement which was very painful to pass. She has been quite uncomfortable since then with discomfort in the lower half of her abdomen. Later as I was palpating, she mentioned she is also sore in her upper abdomen in the epigastric area. She has some nausea but is able to eat and has had no vomiting. On recent hospitalization, CT scan showed possible thickening of the gastric antrum and of the rectal sigmoid. EGD and colonoscopy by Dr. Ram were both negative for any significant disease. She has had no recent fever or chills. She has neurogenic bladder and therefore has an indwelling suprapubic catheter and states that she always has some discomfort in that area, having had recent infection apparently with Pseudomonas. CT scan done this admission and prior admissions have shown a somewhat distended gallbladder but gallstones have not been found. An MRCP was also unremarkable. Review of Systems Review of Systems: All systems reviewed & are unremarkable except as noted in HPI and below PMFSH Past Medical History Medical History Abnormal CT scan, colon Anemia Asthma Bunion rt foot Cataract, right eye Clostridium difficile infection Contracture of toe rt foot Dilated pancreatic duct Ear infection Eczema Erosive gastritis Fibroids Fracture lt femur, lt tibia GERD (gastroesophageal reflux disease) Hyperlipidemia Hypertension Knee pain right knee after injury Methicillin resistant Staph aureus culture positive Multiple sclerosis Onychomycosis Pneumonia Pressure ulcer of coccygeal region Pulmonary embolism Seasonal allergies Suprapubic catheter UTI (urinary tract infection) Vitreous floater Left eye Wrist pain right Surgical History Surgical History H/O rotator cuff surgery rt H/O toe surgery History of bladder surgery History of mandibular surgery Hx of tubal ligation No significant past surgical history Family History Family History Sibling Heart disease Patient's sister is in good health Cerebrovascular accident Family history of cardiovascular diseas
[2021-01-04] MEDS: ENOXAPARIN 40 MG/0.4 ML SYRINGE SUB-Q (15:49)
[2021-01-04] MEDS: TOLNAFTATE 1% POWDER 45 GM BTL 1 APPLIC TOPICAL (15:50)
--- NOTE | 2021-01-04 16:21 | PCSTNOTE ---
Please refer to the Bedside Swallow Evaluation in the EMR. Please note, silent aspiration cannot be ruled out at bedside.
[2021-01-04] MEDS: LIDOCAINE 5% PATCH 2 PATCH TRANSDERM (20:39)
[2021-01-04] MEDS: NABUMETONE 500 MG TABLET PO (20:43)
[2021-01-04] MEDS: BACLOFEN 10 MG TABLET 30 MG PO (20:45)
[2021-01-04] MEDS: CARBAMAZEPINE XR 200 MG TAB.ER.12H PO (20:46)
[2021-01-04] MEDS: GABAPENTIN 300 MG CAPSULE 900 MG PO (20:46)
[2021-01-04] MEDS: cycloSPORINE 0.4 ML OPHTH SOLUTION 1 DROP EACH EYE (20:46)
[2021-01-04] MEDS: PANTOPRAZOLE 40 MG TABLET PO (20:47)
[2021-01-04] MEDS: ALBUTEROL SULFATE NEB 2.5 MG/3 ML INH 0.63 MG INHALATION (21:14)
[2021-01-05] VITALS (7 sets, daily range): BP systolic 135–137; BP diastolic 66–74; PULSE 77–101; RESP 18–20; TEMP 36.1–36.5; O2SAT 95–100; BMI 27.2
[2021-01-05] MEDS: SODIUM CHLORIDE 0.9% IV 1,000 ML 125 ML IV CONT ×2 (03:43→18:41)
--- NOTE | 2021-01-05 06:34 | WPDGIPROGNO ---
Progress Note: A&P Assessment and Plan (1) Generalized abdominal pain: Code(s): R10.84 - Generalized abdominal pain Status: Acute Assessment and Plan: she acknowledges that her constipation seems to cause discomfort from time to time. I agree that it would be beneficial to further investigate for possible gallbladder disease. Ultrasound was unremarkable I have ordered HIDA scan (2) UTI (urinary tract infection): Qualifiers: Hematuria presence: without hematuria Urinary tract infection type: site unspecified Qualified Code(s): N39.0 - Urinary tract infection, site not specified Code(s): N39.0 - Urinary tract infection, site not specified Status: Acute Assessment and Plan: she states that these infections cause her to have discomfort in lower abdomen from time to time, as does her constipation issue (3) Constipation: Code(s): K59.00 - Constipation, unspecified Status: Acute Assessment and Plan: constipation is a notorious and sometimes very difficult problem in patients with MS. She may very well need stronger medications such as Linzess to maintain regularity. Subjective Date/time seen: 01/05/21 06:34 she is comfortable lying in bed. She states that her pain is still there. Is not severe. It is aggravating I explained her that the ultrasound was negative. Review of Systems Review of Systems: All systems reviewed & are unremarkable except as noted in HPI and below Exam Const: General: cooperative, alert and tired appearing Nutritional Appearance: overweight Orientation/consciousness: patient oriented x3 GI: Inspection: normal to inspection and other ( suprapubic catheter) Auscultation: normal bowel sounds Skin: General skin exam: normal color and dry skin Neuro: General: patient oriented x3 Objective Data Vital Signs Vital Signs: Vital Signs - 24 hr 01/04/21 09:02 01/04/21 11:00 01/04/21 21:19 Temperature 35.7 C L Pulse Rate 90 80 87 Respiratory Rate 16 18 20 Blood Pressure 147/77 H 126/66 Pulse Oximetry 99 99 95 01/04/21 22:00 01/05/21 06:00 Temperature 36.3 C L 36.5 C Pulse Rate 108 H 77 Respiratory Rate 18 18 Blood Pressure 154/81 H 135/71 Pulse Oximetry 100 99 Intake/Output Intake/Output: Intake & Output 01/02/21 01/03/21 01/04/21 01/05/21 23:59 23:59 23:59 23:59 Intake Total 2215 1250 Output Total 1250 1600 Balance 965 -350 Meds/Results Medications: Active Medications Generic Name Dose Route Start Last Admin Trade Name Freq PRN Reason Stop Dose Admin Albuterol 2 puff 01/04/21 13:34 Albuterol Sulfate (*Sp) Aerosol 1 Puff INHALATION Q4-6H PRN shortness of breath or wheezing Albuterol 0.63 mg 01/04/21 20:00 01/04/21 21:14 Albuterol Sulfate Neb 2.5 Mg/3 Ml Inh INHALATION 0.63 mg Q12HRT DANIELA Administration Amlodipine Besylate 10 mg 01/05/21 09:00 Amlodipine Besylate 5 Mg Tablet PO DAILY [facility] Atorvastatin Calcium 20 mg 01/05/21 09:00 Atorvastatin 20 Mg Tablet PO DAILY DANIELA Baclofen 20 mg 01/05/21 08:00 Baclofen 10 Mg Tablet PO 0800 DANIELA Baclofen 20 mg 01/05/21 12:00 Baclofen 10 Mg Tablet PO 1200 [facility] Baclofen 30 mg 01/04/21 21:00 01/04/21 20:45 Baclofen 10 Mg Tablet PO 30 mg HS DANIELA Administration Budesonide/Formoterol Fumarate 2 puff 01/04/21 20:00 01/04/21 21:14 Budesonide/Form 160-4.5 Mcg (*Sp) INHALATION 2 puff Q12HRT DANIELA Administration Carbamazepine 200 mg 01/04/21 21:00 01/04/21 20:46 Carbamazepine Xr 200 Mg Tab.Er.12h PO 200 mg Q12HR DANIELA Administration Cyclosporine 1 drop 01/04/21 21:00 01/04/21 20:46 Cyclosporine 0.4 Ml Ophth Solution EACH EYE 1 drop Q12HR DANIELA Administration Diazepam 10 mg 01/04/21 13:34 Diazepam (*Crx) 10 Mg Tablet PO HS PRN spasm Enoxaparin Sodium 40 mg 01/05/21 09:00 Enoxaparin 40 Mg/0.4 Ml Syringe SUB-Q DAILY [facility]
--- NOTE | 2021-01-05 08:10 | PC.NURSE ---
Patient now has an air overlay bed which was replaced at the start of the shift. she c/o sore pressure points which was evidenced by her reddened coccyx and heel sores. She was turned frequently for comfort and pressure relief. She said she felt like she was moving after taking her nighttime medications. she had taken baclofen and gabapentin at that time. She even said that she might have been having hallucinations and said that she saw a green wall on the other side of her room though her room was more of a beige color.
--- NOTE | 2021-01-05 08:59 | WPDURCON ---
Assessment and Plan Assessment and plan (1) UTI (urinary tract infection): Qualifiers: Hematuria presence: without hematuria Urinary tract infection type: site unspecified Qualified Code(s): N39.0 - Urinary tract infection, site not specified Code(s): N39.0 - Urinary tract infection, site not specified Status: Acute Assessment and Plan: Continue IV antibiotics, tailor to culture results. Encourage water intake. 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 Continue monthly changes and PRN to avoid frequent infections. Encourage regular catheter care. Urology Consult Note HPI Date Seen: 01/05/21 Requesting Physician: Rboin Serra MD Primary Care Provider: Javan Young, Consult Narrative Narrative: Hayley Eduardo is a 55 year old female who presented to the ER yesterday for new onset abdominal pain with a history of MS and a suprapubic tube. She has chronic UTI's as well. She most recently had a UTI that grew Pseudomonas on her culture 10/22/2020 and was treated with Ciprofloxacin. She did well after that and had no symptoms. Her UA is suspicious of a UTI at this time, but urine culture is still pending. She is otherwise asymptomatic of UTI other than abdominal pain. CT was normal for urologic abnormalities, but did show evidence of gastritis which could be contributing slightly to her abdominal pain. Her WBC is normal at 8.6 and creatinine is slightly low at 0.30. She is uncertain as to when her SP tube was changed last. She knows it should be changed monthly, but seem stop be non compliant with it, which is probably related to her frequent UTI's. Review of Systems Cardiovascular: Cardiovascular: Denies chest pain Respiratory: Respiratory: Reports no additional respiratory complaints Gastrointestinal: Gastrointestinal: Reports abdominal pain, Denies nausea and Denies vomiting Genitourinary: Genitourinary: Denies hematuria [facility] Past Medical History Medical History Abnormal CT scan, colon Anemia Asthma Bunion rt foot Cataract, right eye Clostridium difficile infection Contracture of toe rt foot Dilated pancreatic duct Ear infection Eczema Erosive gastritis Fibroids Fracture lt femur, lt tibia GERD (gastroesophageal reflux disease) Hyperlipidemia Hypertension Knee pain right knee after injury Methicillin resistant Staph aureus culture positive Multiple sclerosis Onychomycosis Pneumonia Pressure ulcer of coccygeal region Pulmonary embolism Seasonal allergies Suprapubic catheter UTI (urinary tract infection) Vitreous floater Left eye Wrist pain right Surgical History Surgical History H/O rotator cuff surgery rt H/O toe surgery History of bladder surgery History of mandibular surgery Hx of tubal ligation No significant past surgical history Family History Family History Sibling Heart disease Patient's sister is in good health Cerebrovascular accident Family history of cardiovascular disease Hypertension Father Family history of malignant neoplasm Hypertension Mother Type 2 diabetes mellitus Family history of arthritis Hypertension Son Alive and well Daughter Alive and well Grandparent Breast cancer Social History Social History Social History: Patient lives at home with her . Lifelong nonsmoker. She drinks 1-2 alcoholic drinks per month. No drug use. They do have 3 cats. She has 2 providers that help her 7 days a week for 10 hours a day. She is a full code. is listed as the person to notify. Smoking status:
[2021-01-05] MEDS: LOSARTAN POTASSIUM 50 MG TABLET PO (09:10)
[2021-01-05] MEDS: CARBAMAZEPINE XR 200 MG TAB.ER.12H PO ×2 (09:10→20:55)
[2021-01-05] MEDS: PANTOPRAZOLE 40 MG TABLET PO ×2 (09:10→20:57)
[2021-01-05] MEDS: ATORVASTATIN 20 MG TABLET PO (09:10)
[2021-01-05] MEDS: NABUMETONE 500 MG TABLET PO ×2 (09:10→18:24)
[2021-01-05] MEDS: amLODIPine BESYLATE 5 MG TABLET 10 MG PO (09:10)
[2021-01-05] MEDS: ENOXAPARIN 40 MG/0.4 ML SYRINGE SUB-Q (09:10)
[2021-01-05] MEDS: LORATADINE 5 MG TABLET PO (09:11)
[2021-01-05] MEDS: BACLOFEN 10 MG TABLET 20 MG PO ×2 (09:11→18:26)
[2021-01-05] MEDS: cycloSPORINE 0.4 ML OPHTH SOLUTION 1 DROP EACH EYE ×2 (09:11→20:57)
[2021-01-05] MEDS: lamoTRIgine 25 MG TABLET PO (09:11)
[2021-01-05] MEDS: GABAPENTIN 300 MG CAPSULE PO (09:11)
[2021-01-05] MEDS: LIDOCAINE 5% PATCH 2 PATCH TRANSDERM (09:12)
[2021-01-05] MEDS: TOLNAFTATE 1% POWDER 45 GM BTL 1 APPLIC TOPICAL ×3 (09:16→18:40)
[2021-01-05] MEDS: polyethylene glycoL 3350 17 GM POWD.PACK PO (09:16)
[2021-01-05] MEDS: ALBUTEROL SULFATE NEB 2.5 MG/3 ML INH 0.63 MG INHALATION ×2 (09:41→20:18)
[2021-01-05 12:09] LABS: Basophils Percent Auto 0.3 % (0.2-1.2); Eosinophils Absolute Auto 0.1 K/mm3 (0-0.3); Eosinophils Percent Auto 1.3 % (0-4.4); Hematocrit 43.8 % (37.0-47.0); Hemoglobin 13.7 g/dL (12.0-15.0); Immature Granulocyte Absolute 0.03 K/mm3 (0.00-0.031); Immature Granulocyte Percent A 0.3 % (0-0.5); Lymphocytes Absolute Auto 1.26 K/mm3 (0.9-3.2); Lymphocytes Percent Auto 14.4 % (18.3-44.2); Mean Corpuscular HGB Conc 31.3 g/dl (32-36); Mean Corpuscular Hemoglobin 30.1 pg (26-34); Mean Corpuscular Volume 96.3 fl (80-100); Mean Platelet Volume 10.1 fl (7.4-10.4); Monocytes Absolute Auto 0.8 K/mm3 (0.1-0.6); Monocytes Percent Auto 9.5 % (2.6-8.5); Neutrophils Absolute Auto 6.5 K/mm3 (1.3-6.7); Neutrophils Percent Auto 74.2 % (45.5-73.1); Platelet Count Result 219 k/mm3 (150-375); Red Blood Count 4.55 M/mm3 (4.2-5.4); Red Cell Distribution Width 13.2 % (11.5-14.5); White Blood Count 8.8 K/mm3 (4.5-10.0)
--- NOTE | 2021-01-05 12:40 | PM.IMPN ---
Progress Note: A&P Assessment and Plan (1) Generalized abdominal pain: Code(s): R10.84 - Generalized abdominal pain Status: Acute Assessment and Plan: Minimal pain on exam. Labs unrevealing including Lipase. Patient has known history of gastritis which could be contributing to this pain. Could also be UTI although probably less likely. Consider also constipation given the large stool she had last evening. No evidence of constipation now by CT scan. No evidence of colitis. Gallbladder is distended by CT but not noted by RUQ US. HIDA scan ordered. Resume diet since HIDA scan not able to be done today. (2) UTI (urinary tract infection): Qualifiers: Hematuria presence: without hematuria Urinary tract infection type: site unspecified Qualified Code(s): N39.0 - Urinary tract infection, site not specified Code(s): N39.0 - Urinary tract infection, site not specified Status: Acute Assessment and Plan: UA noted. No fever or elevated white count. Possible UTI although suspect if she has bacteruria this is going to be more of colonization than true infection. Continue antibiotics for now. UCx pending (3) Hypertension: Qualifiers: Hypertension type: essential hypertension Qualified Code(s): I10 - Essential (primary) hypertension Code(s): I10 - Essential (primary) hypertension Status: Acute Assessment and Plan: Patient's blood pressure was reviewed on 01/05 Blood pressure remains well controlled. Will continue home medications. Continue to monitor. 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 Suprapubic catheter is in place. SP was changed out by Urology today. Appreciate their input. (5) Multiple sclerosis: Code(s): G35 - Multiple sclerosis Status: Acute Assessment and Plan: Patient has significant MS with severe debility. She is wheelchair-bound and has assistance at home. She was evaluated by Speech and recommendations noted. She is currently not on treatment for her MS for unclear reasons. Explained that we do not have neurology coverage and that patient would have to be transferred to [facility] if she needs further treatment for her MS. Patient refuses transfer at this time. (6) DVT prophylaxis: Code(s): Z29.9 - Encounter for prophylactic measures, unspecified Status: Acute Assessment and Plan: Lovenox Subjective Date/time seen: 01/05/21 12:40 Interval history: 55yo female with severe MS and neurogenic bladder with suprapubic catheter was brought in by EMS for abdominal pain. Abd pain mostly in the mid and right upper abd area. Tolerated the clear liquid without n/v or worsening abd pain. Did tolerate the apple sauce last night with medications without issue as well. She did have room spinning sensation last evening. No CP or SOB. No n/v. Exam Narrative: AF 97.7 135/71 100 20 95% ra Gen - NARD Chest - lungs are clear anteriorly and in the flanks. CV - RRR S1/S2 Abd - soft, obese, no guarding or rebound. mild tenderness mid and uipper abdomen. - Gonzalez secured draining clear yellow urine. SP cath site on the lower abdomen without surrounding erythema or drainage Ext - no pedal edema. Loss on muscle mass diffusely in the extremities Neuro - patient is alert and appropriate. Strength is 0-1/5 in both upper and lower extremities. Speech is clear. Psych - normal mood and affect. Skin - warm and dry. Objective Data Vital Signs Vital Signs: Vital Signs - 24 hr 01/04/21 21:19 01/04/21 22:00 01/05/21 06:00 Temperature 97.3 F L 97.7 F Pulse Rate 87 108 H 77 Respiratory Rate 20 18 18 Blood Pressure 154/81 H 135/71 Pulse Oximetry 95 100 99 01/05/21 09:43 01/05/21 10:02 Temperature Pulse Rate 101 H 100 Resp
[2021-01-05 13:02] LABS: Alanine Aminotransferase 18 U/L (4-35); Albumin Level 4.2 g/dL (3.5-5.1); Alkaline Phosphatase 131 U/L (38-126); Anion Gap 6 mmol/L (8-16); Aspartate Amino Transferase 26 U/L (14-36); Bilirubin,Total 0.4 mg/dL (0.2-1.3); Blood Urea Nitrogen 7 mg/dL (7-17); CRP 1.9 mg/dL (<1.0); Calcium 9.3 mg/dL (8.4-10.2); Carbon Dioxide 30 mmol/L (22-30); Chloride 102 mmol/L (98-107); Estimated CRCL calculation 166 ml/min; Estimated Glomerular Filt Rate > 60; Glucose 123 mg/dL (65-110); Lipase 155 U/L (23-300); Potassium 3.2 mmol/L (3.4-5.0); Sodium 138 mmol/L (137-145)
[2021-01-05] MEDS: ONDANSETRON INJ 4 MG/2 ML VIAL IV PUSH (18:20)
[2021-01-05] MEDS: POTASSIUM CHLORIDE 20 MEQ PACKET (FOR LIQUID) 40 MEQ PO (18:41)
[2021-01-05] MEDS: BACLOFEN 10 MG TABLET 30 MG PO (20:56)
[2021-01-05] MEDS: GABAPENTIN 300 MG CAPSULE 900 MG PO (20:57)
[2021-01-06] MEDS: SODIUM CHLORIDE 0.9% IV 1,000 ML 125 ML IV CONT ×3 (04:00→18:12)
[2021-01-06 06:00] VITALS: BP 131/22; PULSE 70; RESP 18; TEMP 36.7; O2SAT 97
[2021-01-06] MEDS: TOLNAFTATE 1% POWDER 45 GM BTL 1 APPLIC TOPICAL ×3 (08:10→19:24)
[2021-01-06] MEDS: amLODIPine BESYLATE 5 MG TABLET 10 MG PO (08:17)
[2021-01-06] MEDS: BACLOFEN 10 MG TABLET 20 MG PO ×2 (08:18→15:16)
[2021-01-06] MEDS: cycloSPORINE 0.4 ML OPHTH SOLUTION 1 DROP EACH EYE ×2 (08:19→20:48)
[2021-01-06] MEDS: ENOXAPARIN 40 MG/0.4 ML SYRINGE SUB-Q (08:20)
[2021-01-06] MEDS: NABUMETONE 500 MG TABLET PO ×2 (08:23→18:12)
[2021-01-06] MEDS: ATORVASTATIN 20 MG TABLET PO (08:24)
[2021-01-06] MEDS: lamoTRIgine 25 MG TABLET PO (08:24)
[2021-01-06] MEDS: LORATADINE 5 MG TABLET PO (08:25)
[2021-01-06] MEDS: CARBAMAZEPINE XR 200 MG TAB.ER.12H PO ×2 (08:25→20:51)
[2021-01-06] MEDS: LOSARTAN POTASSIUM 50 MG TABLET PO (08:25)
[2021-01-06] MEDS: PANTOPRAZOLE 40 MG TABLET PO ×2 (08:28→20:47)
[2021-01-06] MEDS: ONDANSETRON INJ 4 MG/2 ML VIAL IV PUSH ×2 (10:35→15:04)
--- NOTE | 2021-01-06 14:42 | PM.IMPN ---
Progress Note: A&P Assessment and Plan (1) Generalized abdominal pain: Code(s): R10.84 - Generalized abdominal pain Status: Acute Assessment and Plan: Minimal pain on exam. Labs unrevealing including Lipase. Patient has known history of gastritis which could be contributing to this pain. Consider constipation given the large stool she had prior to admission. No evidence of constipation now by CT scan. No evidence of colitis. Gallbladder is distended by CT but not noted by RUQ US. HIDA scan ordered and is pending. Resume diet once HIDA scan results known. Contineu PPI. Appreciate GI input. HIDA scan showing EF 0%. General surgery consult. (2) Pain of left orbit: Code(s): H57.12 - Ocular pain, left eye Status: Acute Assessment and Plan: Patiet with redness to the left eye. Slight redness to the right but less so. She has been seen by her doctor for this and had steroid drops in early November. Also had a CT of the orbits later part of November. He has not seen an opthomologist. Uveitis? Corneal abrasion?. Explained that normally do not treat eye diseases but can try abx to see if this will improve if an ulcer. COnsider steroids if no better. Transfer was offered. (3) Hypertension: Qualifiers: Hypertension type: essential hypertension Qualified Code(s): I10 - Essential (primary) hypertension Code(s): I10 - Essential (primary) hypertension Status: Acute Assessment and Plan: Patient's blood pressure was reviewed on 01/06 Blood pressure remains well controlled. Will continue home medications. Continue to monitor. 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 Suprapubic catheter is in place. SP was changed out by Urology 01/05. Appreciate their input. (5) Multiple sclerosis: Code(s): G35 - Multiple sclerosis Status: Acute Assessment and Plan: Patient has significant MS with severe debility. She is wheelchair-bound and has assistance at home. She was evaluated by Speech and recommendations noted. She is currently not on treatment for her MS for unclear reasons. Explained that we do not have neurology coverage and that patient would have to be transferred to [facility] if she needs further treatment for her MS. Patient did refuse transfer when asked. Will follow speech therapy diet once diet advanced. (6) DVT prophylaxis: Code(s): Z29.9 - Encounter for prophylactic measures, unspecified Status: Acute Assessment and Plan: Lovenox (7) UTI (urinary tract infection): Qualifiers: Hematuria presence: without hematuria Urinary tract infection type: site unspecified Qualified Code(s): N39.0 - Urinary tract infection, site not specified Code(s): N39.0 - Urinary tract infection, site not specified Status: Acute Assessment and Plan: UA noted. No fever or elevated white count. UCx negative. Abx stopped. UTI ruled out Subjective Date/time seen: 01/06/21 14:42 Interval history: 55yo female with severe MS and neurogenic bladder with suprapubic catheter was brought in by EMS for abdominal pain. No CP or SOB. No increase in abd pain with current diet. No n/v. Still with abd pain and worse with palpation. No BM. Complains of bilateral eye tearing and left eye pain. Exam Narrative: AF 98.0 137/74 18 97% ra Gen - NARD HEENT - eye exam difficult; she can't keep eye open and when manually opened, she looks down which limits exam. Her left sclera injected. no obvious scratch or ulcer Chest - lungs are clear anteriorly and in the flanks. CV - RRR S1/S2 Abd - soft, obese, no guarding or rebound. mild tenderness in the right upper abdomen. - Gonzalez secured draining clear yellow urine. SP cath site on the lower abdomen Ext - no pedal e
[2021-01-06 16:00] VITALS: BP 150/86; PULSE 82; RESP 12; TEMP 37.1; O2SAT 100
[2021-01-06] MEDS: CIPROFLOXACIN HCL 0.3% OP SOLN 2.5 ML BTL 1 DROP EACH EYE ×2 (18:03→20:48)
[2021-01-06] MEDS: HYDROcodone/acetaminophen (*CRX) 5-325 MG TABLET 1 TAB PO (18:04)
[2021-01-06] MEDS: LIDOCAINE 5% PATCH 2 PATCH TRANSDERM (19:26)
[2021-01-06] MEDS: GABAPENTIN 300 MG CAPSULE 900 MG PO (20:48)
[2021-01-06] MEDS: BACLOFEN 10 MG TABLET 30 MG PO (20:49)
[2021-01-06 21:48] VITALS: BP 143/62; PULSE 74; RESP 18; TEMP 36.7; O2SAT 99
[2021-01-07] VITALS (7 sets, daily range): BP systolic 132–140; BP diastolic 57–69; PULSE 59–88; RESP 12–20; TEMP 36.6–36.9; O2SAT 95–100
[2021-01-07] MEDS: CIPROFLOXACIN HCL 0.3% OP SOLN 2.5 ML BTL 1 DROP EACH EYE ×6 (00:59→21:08)
[2021-01-07] MEDS: ONDANSETRON INJ 4 MG/2 ML VIAL IV PUSH ×4 (01:04→23:15)
[2021-01-07] MEDS: SODIUM CHLORIDE 0.9% IV 1,000 ML 125 ML IV CONT ×2 (01:09→09:21)
[2021-01-07] MEDS: CARBAMAZEPINE XR 200 MG TAB.ER.12H PO ×2 (09:27→21:07)
[2021-01-07] MEDS: polyethylene glycoL 3350 17 GM POWD.PACK PO (09:27)
[2021-01-07] MEDS: ENOXAPARIN 40 MG/0.4 ML SYRINGE SUB-Q (09:27)
[2021-01-07] MEDS: LORATADINE 5 MG TABLET PO (09:27)
[2021-01-07] MEDS: ATORVASTATIN 20 MG TABLET PO (09:28)
[2021-01-07] MEDS: cycloSPORINE 0.4 ML OPHTH SOLUTION 1 DROP EACH EYE ×2 (09:28→21:08)
[2021-01-07] MEDS: amLODIPine BESYLATE 5 MG TABLET 10 MG PO (09:28)
[2021-01-07] MEDS: BACLOFEN 10 MG TABLET 20 MG PO ×2 (09:28→12:40)
[2021-01-07] MEDS: GABAPENTIN 300 MG CAPSULE PO (09:29)
[2021-01-07] MEDS: PANTOPRAZOLE 40 MG TABLET PO ×2 (09:29→21:08)
[2021-01-07] MEDS: lamoTRIgine 25 MG TABLET PO (09:29)
[2021-01-07] MEDS: NABUMETONE 500 MG TABLET PO ×2 (09:29→16:25)
[2021-01-07] MEDS: LOSARTAN POTASSIUM 50 MG TABLET PO (09:29)
[2021-01-07] MEDS: TOLNAFTATE 1% POWDER 45 GM BTL 1 APPLIC TOPICAL ×3 (09:30→17:35)
[2021-01-07] MEDS: ALBUTEROL SULFATE NEB 2.5 MG/3 ML INH 1.25 MG INHALATION ×2 (09:53→21:52)
--- NOTE | 2021-01-07 10:36 | PM.CNGS ---
Assessment and Plan Assessment and plan (1) Cholecystitis without calculus: Code(s): K81.9 - Cholecystitis, unspecified Status: Acute Assessment and Plan: Patient history and HIDA scan as well as exam suggest acalculous cholecystitis. I discussed options for managing this. I discussed laparoscopic cholecystectomy which is certainly an option. Although she tolerated her colonoscopy and EGD well in October, laparoscopic abdominal surgery is certainly risky. Patients with significant immobility and some evidence of difficulty handling secretions are at high risk for postoperative pneumonia respiratory failure and . I explained this to her and mentioned it more than once. Another option would be image guided percutaneous cholecystostomy tube. I explained this as well including the additional safety over laparoscopic cholecystectomy. It does have the drawback of having a chronic indwelling catheter for several weeks and the possibility that the cholecystitis could return. Patient is fairly adamant that she does not want the cholecystostomy tube but wants to take her chances with laparoscopic cholecystectomy. I will discuss this with her again tomorrow. We will not be proceeding over the weekend but we will do this during the week when the operating room is fully staffed. (2) Multiple sclerosis: Code(s): G35 - Multiple sclerosis Status: Chronic Assessment and Plan: very advanced. Patient unable to ambulate and can move right arm only a little. Cannot use left arm at all. Some evidence of difficulty managing her secretions. Speaking even requires effort. (3) Neurogenic bladder: Code(s): N31.9 - Neuromuscular dysfunction of bladder, unspecified Status: Chronic Assessment and Plan: managed with long-term suprapubic catheter (4) Constipation: Code(s): K59.00 - Constipation, unspecified Status: Chronic Assessment and Plan: Do not feel this is the cause of her current abdominal pain. History of Present Illness Consult details Consult date: 01/07/21 Reason for consult: abdominal pain Requesting physician: Wesley Serra MD Narrative: Patient is a very nice 55-year-old woman who has had MS for over 20 years. She has been significantly disabled from this. She does get around in a wheelchair but does not ambulate. She has some movement of her right arm but very little of her left arm. She has a neurogenic bladder and a suprapubic cystostomy tube. Reports that currently her MS is at its baseline. She was seen at [facility] in October for abdominal pain. CT scan suggested a possibility of colitis. She had both an upper and lower endoscopy. EGD showed some gastritis. Colonoscopy had a poor prep but no evidence of colitis. She was treated with Protonix b.i.d.. She came back to the emergency room at [facility] on 01/04/2021. At this time she had a history of abdominal pain for the previous 2 days. Initially it seemed that this was rather diffuse abdominal pain but with more evaluation it was noted the patient had tenderness in the right upper quadrant. She was seen by Dr. Rosen of Gastroenterology. Patient had previous gallbladder studies including ultrasound and MRCP both of which were negative for stones. CT scan on admission showed a distended gallbladder but no evidence of cholecystitis. Gallbladder ultrasound was likewise negative. Patient had a HIDA scan yesterday which was very abnormal. The gallbladder ejection fraction was 0%. I was asked to see the patient in consultation regarding acalculous gallbladder disease. On questioning the patient further, she tells me that she has only been eating baked chicken and other low-fat foods. Any type of greasy or fried food will cause her abdominal pain to be worse. She sometimes has nausea and even vomiting. She has had a previous tubal ligation but otherwise no abdominal surgery. Review of Systems Review
--- NOTE | 2021-01-07 11:58 | PM.IMPN ---
Progress Note: A&P Assessment and Plan (1) Generalized abdominal pain: Code(s): R10.84 - Generalized abdominal pain Status: Acute Assessment and Plan: Minimal pain on exam. Labs unrevealing including Lipase. Patient has known history of gastritis which could be contributing to this pain. No evidence of constipation now by CT scan. No evidence of colitis. Gallbladder is distended by CT but not noted by RUQ US. HIDA scan showed low gallbladder ejection fraction, consistent with gallbladder dysfunction and/or chronic cholecystitis.. Resume diet once HIDA scan results known. Continue PPI. Appreciate GI input. Gen surg consulted. Appreciate input. Evaluating options, possible cholecystectomy next week. (2) Pain of left orbit: Code(s): H57.12 - Ocular pain, left eye Status: Acute Assessment and Plan: Patiet with redness to the left eye. Slight redness to the right but less so. She has been seen by her doctor for this and had steroid drops in early November. Also had a CT of the orbits later part of November. He has not seen an opthomologist. Uveitis? Corneal abrasion?. Explained that normally do not treat eye diseases but can try abx to see if this will improve if an ulcer. COnsider steroids if no better. Transfer was offered. (3) Hypertension: Qualifiers: Hypertension type: essential hypertension Qualified Code(s): I10 - Essential (primary) hypertension Code(s): I10 - Essential (primary) hypertension Status: Acute Assessment and Plan: Blood pressure remains well controlled. Will continue home medications. 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 Suprapubic catheter is in place. SP catheter was changed out by Urology 01/05. Appreciate their input. (5) Multiple sclerosis: Code(s): G35 - Multiple sclerosis Status: Chronic Assessment and Plan: Patient has significant MS with severe debility. She is wheelchair-bound and has assistance at home. She was evaluated by Speech and recommendations noted. She is currently not on treatment for her MS for unclear reasons. Explained that we do not have neurology coverage and that patient would have to be transferred to [facility] if she needs further treatment for her MS. Patient did refuse transfer when asked. Will follow speech therapy diet once diet advanced. (6) DVT prophylaxis: Code(s): Z29.9 - Encounter for prophylactic measures, unspecified Status: Acute Assessment and Plan: Lovenox (7) UTI (urinary tract infection): Qualifiers: Hematuria presence: without hematuria Urinary tract infection type: site unspecified Qualified Code(s): N39.0 - Urinary tract infection, site not specified Code(s): N39.0 - Urinary tract infection, site not specified Status: Acute Assessment and Plan: UA noted. No fever or elevated white count. UCx negative. Abx stopped. UTI ruled out. (8) Erosive gastritis: Code(s): K29.60 - Other gastritis without bleeding Status: Acute Assessment and Plan: Continue Protonix Subjective Date/time seen: 01/07/21 11:58 Continues to have abdominal pain. This has been fairly stable. She has been hemodynamically stable and afebrile. No nausea or vomiting. Review of Systems Review of Systems: All systems reviewed & are unremarkable except as noted in HPI and below Exam Narrative: Gen: Alert, NAD Abd: Soft, mild tenderness to palpation right upper quadrant, nondistended Heart: RRR Lungs: CTAB Ext: Trace bilateral lower extremity edema Objective Data Vital Signs Vital Signs: Vital Signs - 24 hr 01/06/21 16:00 01/06/21 21:48 01/07/21 05:47 Temperature 98.8 F 98.1 F 98.4 F Pulse Rate 82 74 68 Respiratory Rate 12 18 17 Blo
[2021-01-07] MEDS: ACETAMINOPHEN 325 MG TABLET 650 MG PO (12:42)
[2021-01-07] MEDS: HYDROcodone/acetaminophen (*CRX) 5-325 MG TABLET 1 TAB PO (16:24)
[2021-01-07] MEDS: MORPHINE SULFATE (*CRX) 4 MG/ML INJ IV PUSH (21:08)
[2021-01-07] MEDS: GABAPENTIN 300 MG CAPSULE 900 MG PO (21:08)
[2021-01-07] MEDS: BACLOFEN 10 MG TABLET 30 MG PO (21:08)
[2021-01-08] VITALS (9 sets, daily range): BP systolic 138–142; BP diastolic 61–70; PULSE 62–82; RESP 12–18; TEMP 36.4–37.1; O2SAT 96–100
[2021-01-08] MEDS: SODIUM CHLORIDE 0.9% IV 1,000 ML 50 ML IV CONT (06:12)
[2021-01-08] MEDS: LIDOCAINE 5% PATCH 2 PATCH TRANSDERM (09:44)
[2021-01-08] MEDS: BACLOFEN 10 MG TABLET 20 MG PO ×2 (09:44→12:44)
[2021-01-08] MEDS: amLODIPine BESYLATE 5 MG TABLET 10 MG PO (09:45)
[2021-01-08] MEDS: LOSARTAN POTASSIUM 50 MG TABLET PO (09:45)
[2021-01-08] MEDS: LORATADINE 5 MG TABLET PO (09:45)
[2021-01-08] MEDS: CARBAMAZEPINE XR 200 MG TAB.ER.12H PO ×2 (09:45→21:17)
[2021-01-08] MEDS: lamoTRIgine 25 MG TABLET PO (09:46)
[2021-01-08] MEDS: GABAPENTIN 300 MG CAPSULE PO (09:46)
[2021-01-08] MEDS: CIPROFLOXACIN HCL 0.3% OP SOLN 2.5 ML BTL 1 DROP EACH EYE ×4 (09:46→21:18)
[2021-01-08] MEDS: ENOXAPARIN 40 MG/0.4 ML SYRINGE SUB-Q (09:46)
[2021-01-08] MEDS: ATORVASTATIN 20 MG TABLET PO (09:46)
[2021-01-08] MEDS: cycloSPORINE 0.4 ML OPHTH SOLUTION 1 DROP EACH EYE ×2 (09:46→21:20)
[2021-01-08] MEDS: NABUMETONE 500 MG TABLET PO ×2 (09:47→16:06)
[2021-01-08] MEDS: PANTOPRAZOLE 40 MG TABLET PO ×2 (09:47→21:20)
[2021-01-08] MEDS: TOLNAFTATE 1% POWDER 45 GM BTL 1 APPLIC TOPICAL ×3 (09:47→16:06)
[2021-01-08] MEDS: ALBUTEROL SULFATE NEB 2.5 MG/3 ML INH 1.25 MG INHALATION ×2 (10:05→21:03)
--- NOTE | 2021-01-08 11:42 | PM.PNGS ---
Progress Note: A&P Assessment and Plan (1) Cholecystitis without calculus: Code(s): K81.9 - Cholecystitis, unspecified Status: Acute Assessment and Plan: I had a very long discussion with the patient again this morning. The visit lasted 35 minutes and the majority of this was discussion. I have encouraged and recommended her to proceed with percutaneous image guided placement of cholecystostomy tube rather than laparoscopic cholecystectomy. I explained the additional safety of this as opposed to general surgery of the abdomen with general anesthesia. Patients with significant neuromuscular disability such as she has, are at high risk for aspiration and pneumonia which can easily progressed to . She had many questions particularly about the cholecystostomy tube. I discussed this in detail including how it would be placed in the x-ray department. Explained the size of the tube, the drainage bag, how often the bag would be emptied, and the fact that often the tube is eventually removed after several weeks. I explained that there is a chance with this that her cholecystitis could come back but there is certainly a possibility it may not. I also explained that cholecystostomy tube is somewhat of a diagnostic procedure in that, should her pain not be relieved, we would know that this is not due to cholecystitis despite the positive HIDA scan. Additionally, the presence of a cholecystostomy tube does not preclude eventual cholecystectomy. After significant, lengthy discussion as described, she agrees to go ahead with the image guided percutaneous cholecystostomy tube placement. Will schedule for tomorrow. (2) Multiple sclerosis: Code(s): G35 - Multiple sclerosis Status: Chronic Assessment and Plan: Very advanced with significant disability. (3) Neurogenic bladder: Code(s): N31.9 - Neuromuscular dysfunction of bladder, unspecified Status: Chronic Assessment and Plan: Has suprapubic catheter. Subjective Subjective Date/Time Seen: 01/08/21 11:42 Patient reports: still having pain ( right upper quadrant pain worse after meals persists) and afebrile Review of Systems Review of Systems: All systems reviewed & are unremarkable except as noted in HPI and below Constitutional: Constitutional: Denies chills, Denies fever(s), Denies headache(s) and Denies night sweats Gastrointestinal: Gastrointestinal: Reports as per HPI and Reports abdominal pain Neurologic: Denies confusion and Denies headache(s) Exam Const: General: cooperative, comfortable, no acute distress, alert, awake and other ( no significant change from yesterday); No confusion Orientation/consciousness: patient oriented x3 and No confusion GI: Inspection: non-distended and other ( suprapubic catheter) GI Palp: Yes Soft to palpation, Yes Tenderness to palpation present (GI) ( right upper quadrant), No Guarding due to palpation present (GI) and No Rebound tenderness present Auscultation: Hypoactive bowel sounds present Extrem: General: no calf tenderness and no edema Psych: Affect: normal affect Insight: Good insight present (Psych) Judgement: Good judgement present (Psych) Objective Data Vital Signs Vital Signs: Vital Signs - 24 hr 01/07/21 15:45 01/07/21 21:54 01/07/21 22:00 Temperature 36.6 C 36.7 C Pulse Rate 72 67 63 Respiratory Rate 12 16 18 Blood Pressure 132/57 L 138/62 Pulse Oximetry 100 95 100 01/07/21 22:01 01/08/21 05:43 01/08/21 10:00 Temperature 36.4 C L Pulse Rate 59 L 70 68 Respiratory Rate 16 17 16 Blood Pressure 138/64 Pulse Oximetry 100 96 01/08/21 10:10 Temperature Pulse Rate 62 Respiratory Rate 16 Blood Pressure Pulse Oximetry 96 Intake/Output Intake/Output: Intake & Output 01/05/21 01/06/21 01/07/21 01/08/21 23:59 23:59 23:59 23:59 Intake Total 2600 3520 4470 320 Output Total 1600 1500 3050 1000 Balance 1000 2020 1420 -680 Meds/Result
--- NOTE | 2021-01-08 13:02 | PM.IMPN ---
Progress Note: A&P Assessment and Plan (1) Generalized abdominal pain: Code(s): R10.84 - Generalized abdominal pain Status: Acute Assessment and Plan: Patient has known history of gastritis which could be contributing to this pain. No evidence of constipation now by CT scan. No evidence of colitis. Gallbladder is distended by CT but not noted by RUQ US. HIDA scan showed low gallbladder ejection fraction, consistent with gallbladder dysfunction and/or chronic cholecystitis. Continue PPI. Appreciate GI input. Gen surg consulted. Appreciate input. Evaluating options, possible cholecystostomy tube tomorrow. (2) Pain of left orbit: Code(s): H57.12 - Ocular pain, left eye Status: Acute Assessment and Plan: Patiet with redness to the left eye. Slight redness to the right but less so. She has been seen by her doctor for this and had steroid drops in early November. Also had a CT of the orbits later part of November. He has not seen an global security architect. Uveitis? Corneal abrasion?. Explained that normally do not treat eye diseases but can try abx to see if this will improve if an ulcer. Consider steroids if no better. Transfer was offered. (3) Hypertension: Qualifiers: Hypertension type: essential hypertension Qualified Code(s): I10 - Essential (primary) hypertension Code(s): I10 - Essential (primary) hypertension Status: Acute Assessment and Plan: Blood pressure remains well controlled. Will continue home medications. 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 Suprapubic catheter is in place. SP catheter was changed out by Urology 01/05. Appreciate their input. (5) Multiple sclerosis: Code(s): G35 - Multiple sclerosis Status: Chronic Assessment and Plan: Patient has significant MS with severe debility. She is wheelchair-bound and has assistance at home. She was evaluated by Speech and recommendations noted. She is currently not on treatment for her MS for unclear reasons. Explained that we do not have neurology coverage and that patient would have to be transferred to [facility] if she needs further treatment for her MS. Patient did refuse transfer when asked. Will follow speech therapy diet once diet advanced. (6) DVT prophylaxis: Code(s): Z29.9 - Encounter for prophylactic measures, unspecified Status: Acute Assessment and Plan: Lovenox (7) UTI (urinary tract infection): Qualifiers: Hematuria presence: without hematuria Urinary tract infection type: site unspecified Qualified Code(s): N39.0 - Urinary tract infection, site not specified Code(s): N39.0 - Urinary tract infection, site not specified Status: Acute Assessment and Plan: UA noted. No fever or elevated white count. UCx negative. Abx stopped. UTI ruled out. (8) Erosive gastritis: Code(s): K29.60 - Other gastritis without bleeding Status: Acute Assessment and Plan: Continue Protonix Additional Plan Watery eyes - could be related to recent treatment for her stye, Will need to see optho after discharge once she is well enough for discharge. If condition worsens, then will need to be transferred. Subjective Date/time seen: 01/08/21 13:02 Overall clinically stable. Continues to right upper quadrant abdominal pain. This is worse meals. reports some nausea after meals but no vomiting. Reports constipation and no bowel movement for the past few days. hemodynamically stable. Afebrile. Review of Systems Review of Systems: All systems reviewed & are unremarkable except as noted in HPI and below Exam Narrative: Gen: Alert, NAD Abd: Soft, mild tenderness to palpation right upper quadrant, nondistended Heart: RRR Lungs: CTAB Ext:
[2021-01-08] MEDS: polyethylene glycoL 3350 17 GM POWD.PACK PO (15:48)
[2021-01-08] MEDS: BACLOFEN 10 MG TABLET 30 MG PO (21:18)
[2021-01-08] MEDS: GABAPENTIN 300 MG CAPSULE 900 MG PO (21:19)
[2021-01-09] VITALS (7 sets, daily range): BP systolic 119–144; BP diastolic 66–67; PULSE 60–83; RESP 14–18; TEMP 36.4–36.8; O2SAT 97–100
[2021-01-09] MEDS: SODIUM CHLORIDE 0.9% IV 1,000 ML 50 ML IV CONT ×2 (02:17→21:46)
[2021-01-09 07:24] LABS: Anion Gap 4 mmol/L (8-16); Blood Urea Nitrogen 6 mg/dL (7-17); Calcium 8.9 mg/dL (8.4-10.2); Carbon Dioxide 31 mmol/L (22-30); Chloride 100 mmol/L (98-107); Estimated CRCL calculation 166 ml/min; Estimated Glomerular Filt Rate > 60; Glucose 86 mg/dL (65-110); Potassium 3.6 mmol/L (3.4-5.0); Sodium 135 mmol/L (137-145)
[2021-01-09] MEDS: ALBUTEROL SULFATE NEB 2.5 MG/3 ML INH 1.25 MG INHALATION ×2 (08:18→21:20)
[2021-01-09] MEDS: cycloSPORINE 0.4 ML OPHTH SOLUTION 1 DROP EACH EYE ×2 (10:26→20:35)
[2021-01-09] MEDS: CIPROFLOXACIN HCL 0.3% OP SOLN 2.5 ML BTL 1 DROP EACH EYE ×4 (10:26→20:35)
[2021-01-09] MEDS: NABUMETONE 500 MG TABLET PO ×2 (10:27→17:14)
[2021-01-09] MEDS: BACLOFEN 10 MG TABLET 20 MG PO ×2 (10:27→13:37)
[2021-01-09] MEDS: GABAPENTIN 300 MG CAPSULE PO (10:28)
[2021-01-09] MEDS: amLODIPine BESYLATE 5 MG TABLET 10 MG PO (10:29)
[2021-01-09] MEDS: lamoTRIgine 25 MG TABLET PO (10:29)
[2021-01-09] MEDS: ATORVASTATIN 20 MG TABLET PO (10:29)
[2021-01-09] MEDS: LOSARTAN POTASSIUM 50 MG TABLET PO (10:29)
[2021-01-09] MEDS: PANTOPRAZOLE 40 MG TABLET PO ×2 (10:29→20:46)
[2021-01-09] MEDS: CARBAMAZEPINE XR 200 MG TAB.ER.12H PO ×2 (10:30→20:35)
[2021-01-09] MEDS: TOLNAFTATE 1% POWDER 45 GM BTL 1 APPLIC TOPICAL ×3 (10:30→17:14)
[2021-01-09] MEDS: LORATADINE 5 MG TABLET PO (10:30)
[2021-01-09 10:42] LABS: INR 0.9; Prothrombin Time 12.5 Seconds (11.1-14.7)
[2021-01-09 10:43] LABS: Partial Thromboplastin Time 33.9 SECONDS (22.3-36.8)
--- NOTE | 2021-01-09 12:35 | PC.NURSE ---
to ultrasound for drain placement
--- NOTE | 2021-01-09 13:31 | PC.NURSE ---
returned from ultrasound
[2021-01-09] MEDS: polyethylene glycoL 3350 17 GM POWD.PACK PO (13:35)
[2021-01-09] MEDS: LIDOCAINE 5% PATCH 2 PATCH TRANSDERM (13:36)
[2021-01-09] MEDS: HYDROcodone/acetaminophen (*CRX) 5-325 MG TABLET 1 TAB PO ×2 (13:42→21:45)
--- NOTE | 2021-01-09 13:48 | PM.IMPN ---
Progress Note: A&P Assessment and Plan (1) Generalized abdominal pain: Code(s): R10.84 - Generalized abdominal pain Status: Acute Assessment and Plan: Concern for acalculous cholecystitis, diminished gallbladder EF on HIDA scan, however no signs of inflamed gallbladder on US including no wall thickening or pericholecystic fluid. S/p percutaneous cholecystotomy tube placement today, will monitor drainage and s/x resolution. Also plan to start Q8 Cefazolin for mild-moderate community acquired biliary infection. Continue PRNs incl zofran and norco w/ morphine for breakthrough. Does not appear constipated. Continue BID protonix as ulcer also on differential although lower. Pt reports having had ulcer in past. Based on effect of tube, may change abx for h pylori and consider GI involvement for EGD. (2) Multiple sclerosis: Code(s): G35 - Multiple sclerosis Status: Chronic Assessment and Plan: Wheelchair bound with limited UE BL mobility at [facility]. Based on symptoms is not in acute episode. Not on maintenance therapy. Per patient, did not do well on interferons and another medication she cannot recall as outpatient, and team decided against chronic therapy. Baclofen and Neurontin help her with pain. Speech on board, helping cautiously advance diet. (3) Pain of left orbit: Code(s): H57.12 - Ocular pain, left eye Status: Acute Assessment and Plan: Patiet with redness to the left eye. Slight redness to the right but less so. She has been seen by her doctor for this and had steroid drops in early November. Also had a CT of the orbits later part of November. He has not seen an barrel roller. Uveitis? Corneal abrasion?. Explained that normally do not treat eye diseases but can try abx to see if this will improve if an ulcer. Consider steroids if no better. Transfer was offered. (4) Hypertension: Qualifiers: Hypertension type: essential hypertension Qualified Code(s): I10 - Essential (primary) hypertension Code(s): I10 - Essential (primary) hypertension Status: Acute Assessment and Plan: Blood pressure remains well controlled. Will continue home medications. 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 Suprapubic catheter is in place. SP catheter was changed out by Urology 01/05. (6) DVT prophylaxis: Code(s): Z29.9 - Encounter for prophylactic measures, unspecified Status: Acute Assessment and Plan: mechanical, as pt may have procedure today or tomorrow (7) UTI (urinary tract infection): Qualifiers: Hematuria presence: without hematuria Urinary tract infection type: site unspecified Qualified Code(s): N39.0 - Urinary tract infection, site not specified Code(s): N39.0 - Urinary tract infection, site not specified Status: Acute Assessment and Plan: UA noted. No fever or elevated white count. UCx negative. Abx stopped. UTI ruled out. (8) Erosive gastritis: Code(s): K29.60 - Other gastritis without bleeding Status: Acute Assessment and Plan: Continue Protonix Additional Plan Patient is on carbamazepine and lamotrigine as an outpatient, although unclear reason. -She denies any behavioral diagnosis including bipolar, and is lucid during interview. -Also denies seizure history or any CVAs in past -We will continue while patient is admitted as she takes them daily at home and do not want to abruptly stop -instructed to discuss why she is on this with neurologist & pcp Subjective Date/time seen: 01/09/21 13:48 Review of Systems Review of Systems: All systems reviewed & are unremarkable except as noted in HPI and below Exam Const: General: no acute distress Neck: Neck: no JVD Cardio: Rate: regular rat
[2021-01-09] MEDS: BACLOFEN 10 MG TABLET 30 MG PO (20:35)
[2021-01-09] MEDS: GABAPENTIN 300 MG CAPSULE 900 MG PO (20:35)
[2021-01-10] VITALS (8 sets, daily range): BP systolic 131–148; BP diastolic 64–76; PULSE 63–89; RESP 14–18; TEMP 36.5–36.8; O2SAT 100
[2021-01-10] MEDS: CIPROFLOXACIN HCL 0.3% OP SOLN 2.5 ML BTL 1 DROP EACH EYE ×5 (01:54→21:25)
[2021-01-10 07:29] LABS: Basophils Percent Auto 0.3 % (0.2-1.2); Eosinophils Absolute Auto 0.2 K/mm3 (0-0.3); Eosinophils Percent Auto 2.6 % (0-4.4); Hematocrit 43.9 % (37.0-47.0); Hemoglobin 13.7 g/dL (12.0-15.0); Immature Granulocyte Absolute 0.02 K/mm3 (0.00-0.031); Immature Granulocyte Percent A 0.3 % (0-0.5); Lymphocytes Absolute Auto 1.39 K/mm3 (0.9-3.2); Lymphocytes Percent Auto 24.3 % (18.3-44.2); Mean Corpuscular HGB Conc 31.2 g/dl (32-36); Mean Corpuscular Hemoglobin 29.8 pg (26-34); Mean Corpuscular Volume 95.4 fl (80-100); Mean Platelet Volume 9.8 fl (7.4-10.4); Monocytes Absolute Auto 0.5 K/mm3 (0.1-0.6); Monocytes Percent Auto 9.3 % (2.6-8.5); Neutrophils Absolute Auto 3.6 K/mm3 (1.3-6.7); Neutrophils Percent Auto 63.2 % (45.5-73.1); Platelet Count Result 224 k/mm3 (150-375); Red Cell Distribution Width 13.2 % (11.5-14.5); White Blood Count 5.7 K/mm3 (4.5-10.0)
[2021-01-10] MEDS: BACLOFEN 10 MG TABLET 20 MG PO ×2 (08:25→12:10)
[2021-01-10] MEDS: amLODIPine BESYLATE 5 MG TABLET 10 MG PO (08:25)
[2021-01-10] MEDS: CARBAMAZEPINE XR 200 MG TAB.ER.12H PO ×2 (08:26→21:25)
[2021-01-10] MEDS: GABAPENTIN 300 MG CAPSULE PO (08:26)
[2021-01-10] MEDS: LOSARTAN POTASSIUM 50 MG TABLET PO (08:26)
[2021-01-10] MEDS: ATORVASTATIN 20 MG TABLET PO (08:27)
[2021-01-10] MEDS: LIDOCAINE 5% PATCH 2 PATCH TRANSDERM (08:28)
[2021-01-10] MEDS: NABUMETONE 500 MG TABLET PO ×2 (08:28→17:47)
[2021-01-10] MEDS: PANTOPRAZOLE 40 MG TABLET PO ×2 (08:28→21:25)
[2021-01-10] MEDS: LORATADINE 5 MG TABLET PO (08:28)
[2021-01-10] MEDS: TOLNAFTATE 1% POWDER 45 GM BTL 1 APPLIC TOPICAL ×3 (08:29→17:47)
[2021-01-10] MEDS: cycloSPORINE 0.4 ML OPHTH SOLUTION 1 DROP EACH EYE ×2 (08:29→21:25)
[2021-01-10] MEDS: lamoTRIgine 25 MG TABLET PO (08:29)
[2021-01-10] MEDS: ALBUTEROL SULFATE NEB 2.5 MG/3 ML INH 1.25 MG INHALATION ×2 (09:16→21:05)
[2021-01-10 10:42] LABS: Alanine Aminotransferase 20 U/L (4-35); Albumin Level 3.8 g/dL (3.5-5.1); Alkaline Phosphatase 112 U/L (38-126); Anion Gap 9 mmol/L (8-16); Aspartate Amino Transferase 27 U/L (14-36); Bilirubin,Total < 0.1 mg/dL (0.2-1.3); Blood Urea Nitrogen 8 mg/dL (7-17); Calcium 9.7 mg/dL (8.4-10.2); Carbon Dioxide 27 mmol/L (22-30); Chloride 100 mmol/L (98-107); Estimated CRCL calculation 166 ml/min; Estimated Glomerular Filt Rate > 60; Glucose 87 mg/dL (65-110); Magnesium 1.9 mg/dL (1.6-2.3); Phosphorus 3.8 mg/dL (2.5-4.5); Potassium 3.7 mmol/L (3.4-5.0); Sodium 136 mmol/L (137-145)
--- NOTE | 2021-01-10 11:54 | PCDIET ---
Nutrition Follow-Up Complete: Nutrition Diagnosis: Increased protein/calorie needs related to increased demands for healing as evidenced by stage II on sacrum and deep tissue injury on right heel. Nutrition Goal: Patient to consume 75% of meals/supplements or greater. Goal in progress. Patient has consumed an average of 65% of recorded meals since last review on low fat, level 6 soft and bite size diet. Patient had questions re: home diet. Added low fat diet information to discharge instructions. Patient not receptive to trying Ensure products due to reported lactose intolerance, but reports taking Devan BID at home. Recommend adding Devan (90kcal, 14g amino acids) BID to support wound healing. Discussed with patient importance of adequate protein intake. Last recorded weight is 74.3 kg. Recommend obtaining new weight. Bowel Motility: No documented BM. Patient on Miralax. If medically appropriate, could consider additional medication to promote BM. Labs Reviewed: Cr (0.3), Na (136) Meds Noted: NS at 50mL/hr, Miralax, Tegretol, Ancef, Neurontin, Cozaar, Protonix, [place], Albuterol, Norvasc, Lipitor, Symbicort Additional Notes: Cholecystostomy tube placed 01/09/21. Stage II pressure ulcer to sacrum and deep tissue injury to right heel. Will continue to monitor with same goal. Nutrition Monitoring and Evaluation: Follow up every 5 days.
[2021-01-10] MEDS: polyethylene glycoL 3350 17 GM POWD.PACK PO (12:10)
--- NOTE | 2021-01-10 12:58 | PM.PNGS ---
Progress Note: A&P Assessment and Plan (1) Cholecystitis without calculus: Code(s): K81.9 - Cholecystitis, unspecified Status: Acute Assessment and Plan: Cholecystostomy tube placed without incident. Patient complains that she is not getting any of the food she likes to eat. Will go ahead and advance to regular diet but avoid fried food. Continue to monitor output from cholecystostomy tube and clinical progress. (2) Constipation: Code(s): K59.00 - Constipation, unspecified Status: Chronic Assessment and Plan: Complains no bowel movement since admission. Will increase MiraLax to twice a day and add Senokot at night. Subjective Subjective Date/Time Seen: 01/10/21 12:58 Post Op day: 1 (Status post cholecystostomy tube yesterday) Patient reports: pain is less and tolerating liquids well (Wants regular diet) Review of Systems Review of Systems: All systems reviewed & are unremarkable except as noted in HPI and below Constitutional: Constitutional: Reports as per HPI, Denies chills, Denies fever(s), Denies headache(s) and Reports increased appetite Cardiovascular: Cardiovascular: Denies chest pain and Denies dyspnea Gastrointestinal: Gastrointestinal: Reports as per HPI, Reports abdominal pain (Seems to be better) and Reports constipation Exam Const: General: comfortable and no acute distress; No confusion Orientation/consciousness: patient oriented x3 and No confusion GI: Inspection: non-distended and incision (Small amount bile in catheter bag) GI Palp: Yes Soft to palpation, Yes Tenderness to palpation present (GI) (Right upper quadrant, less than before), No Guarding due to palpation present (GI) and No Rebound tenderness present Extrem: General: no calf tenderness and no edema Psych: Affect: normal affect Insight: Good insight present (Psych) Judgement: Good judgement present (Psych) Objective Data Vital Signs Vital Signs: Vital Signs - 24 hr 01/09/21 14:00 01/09/21 21:23 01/09/21 22:00 Temperature 36.8 C 36.8 C Pulse Rate 73 67 83 Respiratory Rate 14 14 18 Blood Pressure 144/67 H 119/67 Pulse Oximetry 100 99 01/10/21 06:00 01/10/21 09:19 01/10/21 09:26 Temperature 36.8 C Pulse Rate 63 65 63 Respiratory Rate 18 15 15 Blood Pressure 131/64 Pulse Oximetry 100 Intake/Output Intake/Output: Intake & Output 01/07/21 01/08/21 01/09/21 01/10/21 23:59 23:59 23:59 23:59 Intake Total 4470 920 2790 790 Output Total 3050 3050 2500 1000 Balance 1420 -2130 290 -210 Meds/Results Medications: Active Medications Generic Name Dose Route Start Last Admin Trade Name Freq PRN Reason Stop Dose Admin Hydrocodone Bitart/Acetaminophen 1 tab 01/06/21 17:27 01/09/21 21:45 Hydrocodone/Acetaminophen (*Crx) 5-325 Mg Tablet PO 1 tab Q6H PRN Administration Pain Rated 6-10 Albuterol 2 puff 01/04/21 13:34 Albuterol Sulfate (*Sp) Aerosol 1 Puff INHALATION Q4-6H PRN shortness of breath or wheezing Albuterol 1.25 mg 01/06/21 20:00 01/10/21 09:16 Albuterol Sulfate Neb 2.5 Mg/3 Ml Inh INHALATION 1.25 mg Q12HRT DANIELA Administration Amlodipine Besylate 10 mg 01/05/21 09:00 01/10/21 08:25 Amlodipine Besylate 5 Mg Tablet PO 10 mg DAILY DANIELA Administration Atorvastatin Calcium 20 mg 01/05/21 09:00 01/10/21 08:27 Atorvastatin 20 Mg Tablet PO 20 mg DAILY DANIELA Administration Baclofen 20 mg 01/05/21 08:00 01/10/21 08:25 Baclofen 10 Mg Tablet PO 20 mg 0800 DANIELA Administration Baclofen 20 mg 01/05/21 12:00 01/10/21 12:10 Baclofen 10 Mg Tablet PO 20 mg 1200 DANIELA Administration Baclofen 30 mg 01/04/21 21:00 01/09/21 20:35 Baclofen 10 Mg Tablet PO 30 mg HS DANIELA Administration Budesonide/Formoterol Fumarate 2 puff 01/04/21 20:00 01/10/21 09:15 Budesonide/Form 160-4.5 Mcg (*Sp) INHALATION 2 puff Q12HRT DANIELA Administration Carbamazepine 200 mg 01/04/21 21:00 01/10/21 08:26
[2021-01-10 16:44] LABS: Appearance Urine Clear (Clear); Bilirubin Urine Negative (Negative); Color Urine Yellow (Yellow); Glucose Urine UA Negative (Negative); Ketones Urine Negative (Negative); Leukocyte Esterase Ur 2+ LEU/UL (NEGATIVE); Nitrate Urine Negative (Negative); Protein Urine Negative (Negative); Urobilinogen Urine 0.2 mg/dL (<2.0)
[2021-01-10 16:47] LABS: Add Urine Microscopic? YES; Blood Urine Trace-Intact (Negative)
[2021-01-10] MEDS: SODIUM CHLORIDE 0.9% IV 1,000 ML 50 ML IV CONT (17:52)
--- NOTE | 2021-01-10 18:25 | PM.IMPN ---
Progress Note: A&P Assessment and Plan (1) Generalized abdominal pain: Code(s): R10.84 - Generalized abdominal pain Status: Acute Assessment and Plan: Concern for acalculous cholecystitis, diminished gallbladder EF on HIDA scan, however no signs of inflamed gallbladder on US including no wall thickening or pericholecystic fluid. S/p percutaneous cholecystotomy tube placement will monitor drainage and s/x resolution. Continue Q8 Cefazolin for mild-moderate community acquired biliary infection. Continue PRNs incl zofran and norco w/ morphine for breakthrough. Does not appear constipated. Continue BID protonix as ulcer also on differential although lower. Pt reports having had ulcer in past. Based on effect of tube, may change abx for h pylori and consider GI involvement for EGD. (2) Multiple sclerosis: Code(s): G35 - Multiple sclerosis Status: Chronic Assessment and Plan: Wheelchair bound with limited UE BL mobility at [facility]. Based on symptoms is not in acute episode. Not on maintenance therapy. Per patient, did not do well on interferons and another medication she cannot recall as outpatient, and team decided against chronic therapy. Baclofen and Neurontin help her with pain. Speech on board, helping cautiously advance diet. (3) Pain of left orbit: Code(s): H57.12 - Ocular pain, left eye Status: Acute Assessment and Plan: Patiet with redness to the left eye. Slight redness to the right but less so. She has been seen by her doctor for this and had steroid drops in early November. Also had a CT of the orbits later part of November. He has not seen an early childhood associate. Uveitis? Corneal abrasion?. Explained that normally do not treat eye diseases but can try abx to see if this will improve if an ulcer. Consider steroids if no better. Transfer was offered. (4) Hypertension: Qualifiers: Hypertension type: essential hypertension Qualified Code(s): I10 - Essential (primary) hypertension Code(s): I10 - Essential (primary) hypertension Status: Acute Assessment and Plan: Blood pressure remains well controlled. Will continue home medications. 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 Suprapubic catheter is in place. SP catheter was changed out by Urology 01/05. (6) DVT prophylaxis: Code(s): Z29.9 - Encounter for prophylactic measures, unspecified Status: Acute Assessment and Plan: resume Lovenox today (7) UTI (urinary tract infection): Qualifiers: Hematuria presence: without hematuria Urinary tract infection type: site unspecified Qualified Code(s): N39.0 - Urinary tract infection, site not specified Code(s): N39.0 - Urinary tract infection, site not specified Status: Acute Assessment and Plan: noted UA was negative, however in setting of potential contamination may be worthwhile to attempt repeat UA, currently pending (8) Erosive gastritis: Code(s): K29.60 - Other gastritis without bleeding Status: Acute Assessment and Plan: Continue Protonix Additional Plan Patient is on carbamazepine and lamotrigine as an outpatient, although unclear reason. -She denies any behavioral diagnosis including bipolar, and is lucid during interview. -Also denies seizure history or any CVAs in past -We will continue while patient is admitted as she takes them daily at home and do not want to abruptly stop -instructed to discuss why she is on this with neurologist & pcp Subjective Date/time seen: 01/10/21 18:25 no acute medical complaints, resting comfortably, some minor pain around the site of incision. Review of Systems Review of Systems: All systems reviewed & are unremarkable except as noted in HPI and below Exam
[2021-01-10] MEDS: BACLOFEN 10 MG TABLET 30 MG PO (21:25)
[2021-01-10] MEDS: SENNA/DOCUSATE SODIUM TABLET 2 TAB PO (21:26)
[2021-01-10] MEDS: GABAPENTIN 300 MG CAPSULE 600 MG PO (22:23)
[2021-01-11] MEDS: CIPROFLOXACIN HCL 0.3% OP SOLN 2.5 ML BTL 1 DROP EACH EYE ×6 (00:53→22:29)
[2021-01-11] MEDS: diazePAM (*CRX) 10 MG TABLET PO ×2 (02:55→22:18)
[2021-01-11 06:00] VITALS: BP 149/71; PULSE 64; RESP 18; TEMP 36.4; O2SAT 90
[2021-01-11] MEDS: ATORVASTATIN 20 MG TABLET PO (08:18)
[2021-01-11] MEDS: BACLOFEN 10 MG TABLET 20 MG PO ×2 (08:18→12:05)
[2021-01-11] MEDS: CARBAMAZEPINE XR 200 MG TAB.ER.12H PO ×2 (08:18→22:19)
[2021-01-11] MEDS: amLODIPine BESYLATE 5 MG TABLET 10 MG PO (08:18)
[2021-01-11] MEDS: cycloSPORINE 0.4 ML OPHTH SOLUTION 1 DROP EACH EYE ×2 (08:19→22:29)
[2021-01-11] MEDS: ENOXAPARIN 40 MG/0.4 ML SYRINGE SUB-Q (08:20)
[2021-01-11] MEDS: lamoTRIgine 25 MG TABLET PO (08:21)
[2021-01-11] MEDS: GABAPENTIN 300 MG CAPSULE PO (08:21)
[2021-01-11] MEDS: LIDOCAINE 5% PATCH 2 PATCH TRANSDERM (08:21)
[2021-01-11] MEDS: PANTOPRAZOLE 40 MG TABLET PO ×2 (08:22→22:21)
[2021-01-11] MEDS: TOLNAFTATE 1% POWDER 45 GM BTL 1 APPLIC TOPICAL ×3 (08:22→16:43)
[2021-01-11] MEDS: polyethylene glycoL 3350 17 GM POWD.PACK PO (08:22)
[2021-01-11] MEDS: NABUMETONE 500 MG TABLET PO ×2 (08:22→16:43)
[2021-01-11] MEDS: LOSARTAN POTASSIUM 50 MG TABLET PO (08:22)
[2021-01-11] MEDS: LORATADINE 5 MG TABLET PO (08:25)
[2021-01-11 08:43] VITALS: PULSE 71; RESP 15
[2021-01-11 10:21] LABS: Basophils Percent Auto 0.7 % (0.2-1.2); Eosinophils Absolute Auto 0.2 K/mm3 (0-0.3); Eosinophils Percent Auto 3.9 % (0-4.4); Hematocrit 46.1 % (37.0-47.0); Hemoglobin 14.4 g/dL (12.0-15.0); Immature Granulocyte Absolute 0.01 K/mm3 (0.00-0.031); Immature Granulocyte Percent A 0.2 % (0-0.5); Lymphocytes Absolute Auto 1.72 K/mm3 (0.9-3.2); Lymphocytes Percent Auto 31.9 % (18.3-44.2); Mean Corpuscular HGB Conc 31.2 g/dl (32-36); Mean Corpuscular Hemoglobin 29.8 pg (26-34); Mean Corpuscular Volume 95.4 fl (80-100); Mean Platelet Volume 10.4 fl (7.4-10.4); Monocytes Absolute Auto 0.5 K/mm3 (0.1-0.6); Monocytes Percent Auto 9.1 % (2.6-8.5); Neutrophils Absolute Auto 2.9 K/mm3 (1.3-6.7); Neutrophils Percent Auto 54.2 % (45.5-73.1); Platelet Count Result 231 k/mm3 (150-375); Red Blood Count 4.83 M/mm3 (4.2-5.4); Red Cell Distribution Width 13.2 % (11.5-14.5); White Blood Count 5.4 K/mm3 (4.5-10.0)
[2021-01-11 10:52] LABS: Alanine Aminotransferase 20 U/L (4-35); Albumin Level 4.4 g/dL (3.5-5.1); Alkaline Phosphatase 140 U/L (38-126); Anion Gap 7 mmol/L (8-16); Aspartate Amino Transferase 29 U/L (14-36); Bilirubin,Total 0.3 mg/dL (0.2-1.3); Blood Urea Nitrogen 14 mg/dL (7-17); Carbon Dioxide 32 mmol/L (22-30); Chloride 101 mmol/L (98-107); Estimated CRCL calculation 130 ml/min; Estimated Glomerular Filt Rate > 60; Glucose 95 mg/dL (65-110); Magnesium 1.8 mg/dL (1.6-2.3); Phosphorus 3.5 mg/dL (2.5-4.5); Potassium 4.1 mmol/L (3.4-5.0); Sodium 140 mmol/L (137-145)
--- NOTE | 2021-01-11 11:26 | PM.IMPN ---
Progress Note: A&P Assessment and Plan (1) UTI (urinary tract infection): Qualifiers: Hematuria presence: without hematuria Urinary tract infection type: site unspecified Qualified Code(s): N39.0 - Urinary tract infection, site not specified Code(s): N39.0 - Urinary tract infection, site not specified Status: Acute Assessment and Plan: Continue cefazolin for urinary tract infection (2) Generalized abdominal pain: Code(s): R10.84 - Generalized abdominal pain Status: Acute Assessment and Plan: Concern for acalculous cholecystitis, diminished gallbladder EF on HIDA scan, however no signs of inflamed gallbladder on US including no wall thickening or pericholecystic fluid. S/p percutaneous cholecystotomy tube placement will monitor drainage and s/x resolution. Continue Q8 Cefazolin for mild-moderate community acquired biliary infection. Continue PRNs incl zofran and norco w/ morphine for breakthrough. Does not appear constipated. Continue BID protonix as ulcer also on differential although lower. Pt reports having had ulcer in past. Based on effect of tube, may change abx for h pylori and consider GI involvement for EGD. (3) Multiple sclerosis: Code(s): G35 - Multiple sclerosis Status: Chronic Assessment and Plan: Wheelchair bound with limited UE BL mobility at [facility] [place]. Based on symptoms is not in acute episode. Not on maintenance therapy. Per patient, did not do well on interferons and another medication she cannot recall as outpatient, and team decided against chronic therapy. Baclofen and Neurontin help her with pain. Speech on board, helping cautiously advance diet. (4) Pain of left orbit: Code(s): H57.12 - Ocular pain, left eye Status: Acute Assessment and Plan: Patiet with redness to the left eye. Slight redness to the right but less so. She has been seen by her doctor for this and had steroid drops in early November. Also had a CT of the orbits later part of November. He has not seen an document control supervisor. Uveitis? Corneal abrasion?. Explained that normally do not treat eye diseases but can try abx to see if this will improve if an ulcer. Consider steroids if no better. Transfer was offered. (5) Hypertension: Qualifiers: Hypertension type: essential hypertension Qualified Code(s): I10 - Essential (primary) hypertension Code(s): I10 - Essential (primary) hypertension Status: Acute Assessment and Plan: Blood pressure remains well controlled. Will continue home medications. 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 Suprapubic catheter is in place. SP catheter was changed out by Urology 01/05. (7) DVT prophylaxis: Code(s): Z29.9 - Encounter for prophylactic measures, unspecified Status: Acute Assessment and Plan: resume Lovenox today (8) Erosive gastritis: Code(s): K29.60 - Other gastritis without bleeding Status: Acute Assessment and Plan: Continue Protonix Subjective Date/time seen: 01/11/21 11:26 No acute medical complaints, pain is almost gone lower abdomen, minimal pain around incision site for cholecystostomy tube. Review of Systems Review of Systems: All systems reviewed & are unremarkable except as noted in HPI and below Exam Const: General: no acute distress Neck: Neck: no JVD Cardio: Rate: regular rate Rhythm: regular rhythm GI: GI Palp: Yes Soft to palpation and No Tenderness to palpation present (GI) Objective Data Vital Signs Vital Signs: Vital Signs - 24 hr 01/10/21 14:00 01/10/21 20:00 01/10/21 21:05 Temperature 97.7 F Pulse Rate 77 68 64 Respiratory Rate 18 15 14 Blood Pressure 134/66 Pulse Oximetry 100 100 01/10/21 21:34 01/10/21 22:00 01/11/21
[2021-01-11] MEDS: SODIUM CHLORIDE 0.9% IV 1,000 ML 50 ML IV CONT (13:34)
[2021-01-11 14:00] VITALS: BP 119/59; PULSE 84; RESP 16; TEMP 36.2; O2SAT 98
[2021-01-11] MEDS: ALBUTEROL SULFATE NEB 2.5 MG/3 ML INH 1.25 MG INHALATION ×3 (20:20→22:23)
[2021-01-11 21:25] VITALS: PULSE 74; RESP 16
[2021-01-11 21:26] VITALS: O2SAT 93
[2021-01-11 22:00] VITALS: BP 128/60; PULSE 84; RESP 20; TEMP 36; O2SAT 97
[2021-01-11] MEDS: GABAPENTIN 300 MG CAPSULE 900 MG PO (22:05)
[2021-01-11] MEDS: BACLOFEN 10 MG TABLET 30 MG PO (22:15)
[2021-01-11] MEDS: SENNA/DOCUSATE SODIUM TABLET 2 TAB PO (22:18)
[2021-01-12] VITALS (9 sets, daily range): BP systolic 124–130; BP diastolic 53–70; PULSE 67–79; RESP 16–20; TEMP 36.6–36.8; O2SAT 99–100
[2021-01-12] MEDS: ONDANSETRON INJ 4 MG/2 ML VIAL IV PUSH (08:39)
[2021-01-12] MEDS: SODIUM CHLORIDE 0.9% IV 1,000 ML 50 ML IV CONT (08:39)
[2021-01-12] MEDS: CIPROFLOXACIN HCL 0.3% OP SOLN 2.5 ML BTL 1 DROP EACH EYE ×4 (08:47→22:04)
[2021-01-12] MEDS: ALBUTEROL SULFATE NEB 2.5 MG/3 ML INH 1.25 MG INHALATION ×2 (08:56→22:20)
[2021-01-12 09:22] LABS: Basophils Percent Auto 0.5 % (0.2-1.2); Eosinophils Absolute Auto 0.2 K/mm3 (0-0.3); Eosinophils Percent Auto 3.6 % (0-4.4); Hemoglobin 12.6 g/dL (12.0-15.0); Immature Granulocyte Absolute 0.02 K/mm3 (0.00-0.031); Immature Granulocyte Percent A 0.4 % (0-0.5); Lymphocytes Absolute Auto 1.57 K/mm3 (0.9-3.2); Lymphocytes Percent Auto 28.5 % (18.3-44.2); Mean Corpuscular HGB Conc 31.5 g/dl (32-36); Mean Corpuscular Hemoglobin 29.9 pg (26-34); Mean Platelet Volume 9.9 fl (7.4-10.4); Monocytes Absolute Auto 0.5 K/mm3 (0.1-0.6); Monocytes Percent Auto 8.2 % (2.6-8.5); Neutrophils Absolute Auto 3.2 K/mm3 (1.3-6.7); Neutrophils Percent Auto 58.8 % (45.5-73.1); Platelet Count Result 240 k/mm3 (150-375); Red Blood Count 4.21 M/mm3 (4.2-5.4); Red Cell Distribution Width 13.2 % (11.5-14.5); White Blood Count 5.5 K/mm3 (4.5-10.0)
[2021-01-12 09:33] LABS: Alanine Aminotransferase 24 U/L (4-35); Albumin Level 3.7 g/dL (3.5-5.1); Alkaline Phosphatase 107 U/L (38-126); Anion Gap 6 mmol/L (8-16); Aspartate Amino Transferase 33 U/L (14-36); Bilirubin,Total < 0.1 mg/dL (0.2-1.3); Blood Urea Nitrogen 15 mg/dL (7-17); Calcium 9.2 mg/dL (8.4-10.2); Carbon Dioxide 30 mmol/L (22-30); Chloride 100 mmol/L (98-107); Estimated CRCL calculation 130 ml/min; Estimated Glomerular Filt Rate > 60; Glucose 97 mg/dL (65-110); Potassium 3.7 mmol/L (3.4-5.0); Sodium 136 mmol/L (137-145)
[2021-01-12] MEDS: amLODIPine BESYLATE 5 MG TABLET 10 MG PO (09:58)
[2021-01-12] MEDS: ATORVASTATIN 20 MG TABLET PO (09:58)
[2021-01-12] MEDS: BACLOFEN 10 MG TABLET 20 MG PO ×2 (09:58→13:13)
[2021-01-12] MEDS: ENOXAPARIN 40 MG/0.4 ML SYRINGE SUB-Q (09:59)
[2021-01-12] MEDS: cycloSPORINE 0.4 ML OPHTH SOLUTION 1 DROP EACH EYE ×2 (09:59→22:04)
[2021-01-12] MEDS: CARBAMAZEPINE XR 200 MG TAB.ER.12H PO ×2 (09:59→22:06)
[2021-01-12] MEDS: NABUMETONE 500 MG TABLET PO ×2 (10:00→17:14)
[2021-01-12] MEDS: GABAPENTIN 300 MG CAPSULE PO (10:00)
[2021-01-12] MEDS: lamoTRIgine 25 MG TABLET PO (10:00)
[2021-01-12] MEDS: LOSARTAN POTASSIUM 50 MG TABLET PO (10:00)
[2021-01-12] MEDS: LORATADINE 5 MG TABLET PO (10:00)
[2021-01-12] MEDS: TOLNAFTATE 1% POWDER 45 GM BTL 1 APPLIC TOPICAL ×3 (10:01→17:14)
[2021-01-12] MEDS: PANTOPRAZOLE 40 MG TABLET PO ×2 (10:01→22:08)
--- NOTE | 2021-01-12 14:31 | PM.IMPN ---
Progress Note: A&P Assessment and Plan (1) UTI (urinary tract infection): Qualifiers: Hematuria presence: without hematuria Urinary tract infection type: site unspecified Qualified Code(s): N39.0 - Urinary tract infection, site not specified Code(s): N39.0 - Urinary tract infection, site not specified Status: Acute Assessment and Plan: Continue cefazolin for urinary tract infection Plan for 7 to 10 day total. (2) Generalized abdominal pain: Code(s): R10.84 - Generalized abdominal pain Status: Acute Assessment and Plan: Concern for acalculous cholecystitis, diminished gallbladder EF on HIDA scan, however no signs of inflamed gallbladder on US including no wall thickening or pericholecystic fluid. S/p percutaneous cholecystotomy tube placement will monitor drainage and s/x resolution. Continue Q8 Cefazolin for mild-moderate community acquired biliary infection. Continue PRNs incl zofran and norco w/ morphine for breakthrough. Does not appear constipated. Continue BID protonix as ulcer also on differential although lower. Pt reports having had ulcer in past. Based on effect of tube, may change abx for h pylori and consider GI involvement for EGD. (3) Multiple sclerosis: Code(s): G35 - Multiple sclerosis Status: Chronic Assessment and Plan: Wheelchair bound with limited UE BL mobility at [facility]. Based on symptoms is not in acute episode. Not on maintenance therapy. Per patient, did not do well on interferons and another medication she cannot recall as outpatient, and team decided against chronic therapy. Baclofen and Neurontin help her with pain. Speech on board, helping cautiously advance diet. (4) Pain of left orbit: Code(s): H57.12 - Ocular pain, left eye Status: Acute Assessment and Plan: Patiet with redness to the left eye. Slight redness to the right but less so. She has been seen by her doctor for this and had steroid drops in early November. Also had a CT of the orbits later part of November. He has not seen an legal instruments examiner. Uveitis? Corneal abrasion?. Explained that normally do not treat eye diseases Transfer was offered. Based on continued symptoms, will try antibiotic eyedrops trimethoprim polymyxin today. Vision is unaffected, no fever or chills, no pain behind the eye or in the mastoid, no signs of orbital cellulitis, or preorbital cellulitis (5) Hypertension: Qualifiers: Hypertension type: essential hypertension Qualified Code(s): I10 - Essential (primary) hypertension Code(s): I10 - Essential (primary) hypertension Status: Acute Assessment and Plan: Blood pressure remains well controlled. Will continue home medications. 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 Suprapubic catheter is in place. SP catheter was changed out by Urology 01/05. (7) DVT prophylaxis: Code(s): Z29.9 - Encounter for prophylactic measures, unspecified Status: Acute Assessment and Plan: resume Lovenox today (8) Erosive gastritis: Code(s): K29.60 - Other gastritis without bleeding Status: Acute Assessment and Plan: Continue Protonix Additional Plan Patient is on carbamazepine and lamotrigine as an outpatient, although unclear reason. -She denies any behavioral diagnosis including bipolar, and is lucid during interview. -Also denies seizure history or any CVAs in past -We will continue while patient is admitted as she takes them daily at home and do not want to abruptly stop -instructed to discuss why she is on this with neurologist & pcp Subjective Date/time seen: 01/12/21 14:31 No acute medical complaints. Left eye she says it is somewhat sticky in the morning, and she feels uncomfortable Does not desc
[2021-01-12] MEDS: polyethylene glycoL 3350 17 GM POWD.PACK PO (22:03)
[2021-01-12] MEDS: BACLOFEN 10 MG TABLET 30 MG PO (22:05)
[2021-01-12] MEDS: GABAPENTIN 300 MG CAPSULE 900 MG PO (22:07)
[2021-01-12] MEDS: SENNA/DOCUSATE SODIUM TABLET 2 TAB PO (22:07)
[2021-01-12] MEDS: POLYMYXIN/TRIMETHOPRIM OPHTH 10 ML DROPS 2 DROP LEFT EYE (22:09)
[2021-01-12] MEDS: diazePAM (*CRX) 10 MG TABLET PO (23:15)
[2021-01-13 06:00] VITALS: BP 124/64; PULSE 72; RESP 18; TEMP 36.5; O2SAT 100
[2021-01-13 07:29] LABS: Basophils Percent Auto 0.7 % (0.2-1.2); Eosinophils Absolute Auto 0.2 K/mm3 (0-0.3); Eosinophils Percent Auto 3.6 % (0-4.4); Hemoglobin 12.1 g/dL (12.0-15.0); Immature Granulocyte Absolute 0.02 K/mm3 (0.00-0.031); Immature Granulocyte Percent A 0.3 % (0-0.5); Lymphocytes Absolute Auto 1.76 K/mm3 (0.9-3.2); Mean Corpuscular HGB Conc 30.3 g/dl (32-36); Mean Corpuscular Hemoglobin 29.3 pg (26-34); Mean Corpuscular Volume 96.9 fl (80-100); Mean Platelet Volume 10.1 fl (7.4-10.4); Monocytes Absolute Auto 0.7 K/mm3 (0.1-0.6); Neutrophils Absolute Auto 3.4 K/mm3 (1.3-6.7); Neutrophils Percent Auto 55.4 % (45.5-73.1); Platelet Count Result 241 k/mm3 (150-375); Red Blood Count 4.13 M/mm3 (4.2-5.4); Red Cell Distribution Width 13.3 % (11.5-14.5); White Blood Count 6.1 K/mm3 (4.5-10.0)
[2021-01-13 07:52] LABS: Alanine Aminotransferase 28 U/L (4-35); Albumin Level 3.6 g/dL (3.5-5.1); Alkaline Phosphatase 110 U/L (38-126); Anion Gap 4 mmol/L (8-16); Aspartate Amino Transferase 38 U/L (14-36); Bilirubin,Total 0.3 mg/dL (0.2-1.3); Blood Urea Nitrogen 24 mg/dL (7-17); Calcium 9.2 mg/dL (8.4-10.2); Carbon Dioxide 29 mmol/L (22-30); Chloride 106 mmol/L (98-107); Estimated CRCL calculation 130 ml/min; Estimated Glomerular Filt Rate > 60; Glucose 80 mg/dL (65-110); Magnesium 1.9 mg/dL (1.6-2.3); Phosphorus 3.5 mg/dL (2.5-4.5); Sodium 139 mmol/L (137-145)
[2021-01-13] MEDS: CIPROFLOXACIN HCL 0.3% OP SOLN 2.5 ML BTL 1 DROP EACH EYE ×6 (08:11→21:31)
[2021-01-13] MEDS: GABAPENTIN 300 MG CAPSULE PO (08:12)
[2021-01-13] MEDS: NABUMETONE 500 MG TABLET PO ×2 (08:12→17:39)
[2021-01-13] MEDS: ENOXAPARIN 40 MG/0.4 ML SYRINGE SUB-Q (08:12)
[2021-01-13] MEDS: amLODIPine BESYLATE 5 MG TABLET 10 MG PO (08:13)
[2021-01-13] MEDS: lamoTRIgine 25 MG TABLET PO (08:13)
[2021-01-13] MEDS: ATORVASTATIN 20 MG TABLET PO (08:13)
[2021-01-13] MEDS: polyethylene glycoL 3350 17 GM POWD.PACK PO (08:13)
[2021-01-13] MEDS: LORATADINE 5 MG TABLET PO (08:13)
[2021-01-13] MEDS: LOSARTAN POTASSIUM 50 MG TABLET PO (08:13)
[2021-01-13] MEDS: PANTOPRAZOLE 40 MG TABLET PO ×2 (08:14→21:31)
[2021-01-13] MEDS: POLYMYXIN/TRIMETHOPRIM OPHTH 10 ML DROPS 2 DROP LEFT EYE ×2 (08:14→21:31)
[2021-01-13] MEDS: BACLOFEN 10 MG TABLET 20 MG PO ×2 (08:14→15:49)
[2021-01-13] MEDS: cycloSPORINE 0.4 ML OPHTH SOLUTION 1 DROP EACH EYE ×2 (08:14→21:31)
[2021-01-13] MEDS: CARBAMAZEPINE XR 200 MG TAB.ER.12H PO ×2 (08:14→21:31)
[2021-01-13] MEDS: TOLNAFTATE 1% POWDER 45 GM BTL 1 APPLIC TOPICAL ×3 (08:15→17:39)
[2021-01-13] MEDS: LIDOCAINE 5% PATCH 2 PATCH TRANSDERM (08:16)
--- NOTE | 2021-01-13 11:11 | PM.PNGS ---
Progress Note: A&P Assessment and Plan (1) Cholecystitis without calculus: Code(s): K81.9 - Cholecystitis, unspecified Status: Acute Assessment and Plan: Greatly improved. Biliary catheter injection today shows cystic duct is patent and contrast passed normally through the gallbladder and the biliary ductal system into the duodenum. Will clamp biliary catheter tomorrow and see how she tolerates this. If no recurrence of her right upper quadrant pain or nausea, can be discharged with the tube clamped. Tube can be removed as an outpatient in about 1 month. (2) Multiple sclerosis: Code(s): G35 - Multiple sclerosis Status: Chronic Assessment and Plan: Very advanced, patient bed ridden (3) Neurogenic bladder: Code(s): N31.9 - Neuromuscular dysfunction of bladder, unspecified Status: Chronic Assessment and Plan: managed with suprapubic catheter. Currently has UTI. Subjective Subjective Date/Time Seen: 01/13/21 11:11 Post Op day: 4 ( cholecystostomy tube placed 4 days ago on 01/09/2021) Patient reports: pain is less ( Right upper quadrant pain essentially gone), tolerating a regular diet ( pain after eating no longer a problem), bowel movement and afebrile Review of Systems Review of Systems: All systems reviewed & are unremarkable except as noted in HPI and below Constitutional: Constitutional: Reports as per HPI, Denies chills, Denies fever(s), Denies headache(s) and Reports increased appetite Gastrointestinal: Gastrointestinal: Reports as per HPI, Denies abdominal pain, Denies GI cramping, Denies nausea and Denies vomiting Neurologic: Denies confusion and Denies headache(s) Exam Const: General: comfortable and no acute distress; No confusion Orientation/consciousness: patient oriented x3 and No confusion GI: Inspection: non-distended and other ( biliary catheter with small amount of bile in the bag.) GI Palp: Yes Soft to palpation, Yes Tenderness to palpation present (GI) ( at catheter drainage site only), No Guarding due to palpation present (GI) and No Rebound tenderness present Auscultation: normal bowel sounds Extrem: General: no calf tenderness and no edema Psych: Affect: normal affect Insight: Good insight present (Psych) Judgement: Good judgement present (Psych) Objective Data Vital Signs Vital Signs: Vital Signs - 24 hr 01/12/21 14:00 01/12/21 20:30 01/12/21 22:00 Temperature 36.8 C 36.7 C Pulse Rate 77 79 78 Respiratory Rate 16 16 20 Blood Pressure 129/53 L 124/70 Pulse Oximetry 99 99 100 01/12/21 22:21 01/12/21 22:25 01/12/21 22:38 Temperature Pulse Rate 78 79 Respiratory Rate 16 16 Blood Pressure Pulse Oximetry 99 01/13/21 06:00 Temperature 36.5 C Pulse Rate 72 Respiratory Rate 18 Blood Pressure 124/64 Pulse Oximetry 100 Intake/Output Intake/Output: Intake & Output 01/10/21 01/11/21 01/12/21 01/13/21 23:59 23:59 23:59 23:59 Intake Total 2259 1969 2089 360 Output Total 2254 1909 2009 400 Balance 5 60 80 -40 Meds/Results Medications: Active Medications Generic Name Dose Route Start Last Admin Trade Name Freq PRN Reason Stop Dose Admin Hydrocodone Bitart/Acetaminophen 1 tab 01/06/21 17:27 01/09/21 21:45 Hydrocodone/Acetaminophen (*Crx) 5-325 Mg Tablet PO 1 tab Q6H PRN Administration Pain Rated 6-10 Albuterol 2 puff 01/04/21 13:34 Albuterol Sulfate (*Sp) Aerosol 1 Puff INHALATION Q4-6H PRN shortness of breath or wheezing Albuterol 1.25 mg 01/06/21 20:00 01/12/21 22:20 Albuterol Sulfate Neb 2.5 Mg/3 Ml Inh INHALATION 1.25 mg Q12HRT DANIELA Administration Amlodipine Besylate 10 mg 01/05/21 09:00 01/13/21 08:13 Amlodipine Besylate 5 Mg Tablet PO 10 mg DAILY DANIELA Administration Atorvastatin Calcium 20 mg 01/05/21 09:00 01/13/21 08:13 Atorvastatin 20 Mg Tablet PO 20 mg DAILY DANIELA Administration Baclofen 20 mg 01/05/21 08:00 08
[2021-01-13 15:18] VITALS: BP 124/66; PULSE 76; RESP 12; TEMP 37; O2SAT 99
--- NOTE | 2021-01-13 18:07 | PM.IMPN ---
Progress Note: A&P Assessment and Plan (1) UTI (urinary tract infection): Qualifiers: Hematuria presence: without hematuria Urinary tract infection type: site unspecified Qualified Code(s): N39.0 - Urinary tract infection, site not specified Code(s): N39.0 - Urinary tract infection, site not specified Status: Acute Assessment and Plan: Continue cefazolin for urinary tract infection to complete r 7 to 10 days total. (2) Generalized abdominal pain: Code(s): R10.84 - Generalized abdominal pain Status: Acute Assessment and Plan: Abdominal symptoms are resolving. PReviously concern for acalculous cholecystitis, diminished gallbladder EF on HIDA scan, however no signs of inflamed gallbladder on US including no wall thickening or pericholecystic fluid. S/p percutaneous cholecystotomy tube placement will monitor drainage and s/x resolution. Continue Q8 Cefazolin for mild-moderate community acquired biliary infection. Continue PRNs incl zofran and norco w/ morphine for breakthrough. Does not appear constipated. Continue BID protonix as ulcer also on differential although lower. Pt reports having had ulcer in past. Based on effect of tube, may change abx for h pylori and consider GI involvement for EGD. (3) Multiple sclerosis: Code(s): G35 - Multiple sclerosis Status: Chronic Assessment and Plan: Wheelchair bound with limited UE BL mobility at [facility], [place]. Based on symptoms is not in acute episode. Not on maintenance therapy. Per patient, did not do well on interferons and another medication she cannot recall as outpatient, and team decided against chronic therapy. Baclofen and Neurontin help her with pain. Speech on board, helping cautiously advance diet. (4) Pain of left orbit: Code(s): H57.12 - Ocular pain, left eye Status: Acute Assessment and Plan: Patient previously with redness to the left eye, now resolving. Slight redness to the right but less so. She has been seen by her doctor for this and had steroid drops in early November. Also had a CT of the orbits later part of November. He has not seen an dog food dough mixer. Uveitis? Corneal abrasion?. Explained that normally do not treat eye diseases Transfer was offered. Based on continued symptoms, will try antibiotic eyedrops trimethoprim polymyxin today. Vision is unaffected, no fever or chills, no pain behind the eye or in the mastoid, no signs of orbital cellulitis, or preorbital cellulitis (5) Hypertension: Qualifiers: Hypertension type: essential hypertension Qualified Code(s): I10 - Essential (primary) hypertension Code(s): I10 - Essential (primary) hypertension Status: Acute Assessment and Plan: Blood pressure remains well controlled. Will continue home medications. Continue amlodipine 10 mg PO daily and losartan 50 mg PO daily. 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 Suprapubic catheter is in place. SP catheter was exchanged out by Urology 01/05. (7) DVT prophylaxis: Code(s): Z29.9 - Encounter for prophylactic measures, unspecified Status: Acute Assessment and Plan: Continue Lovenox (8) Erosive gastritis: Code(s): K29.60 - Other gastritis without bleeding Status: Acute Assessment and Plan: Continue Protonix. currently tolerating diet well per patient. Additional Plan Overall the patient GI symptoms have greatly improved. Biliary catheter injection today shows cystic duct is patent and contrast passed normally through the gallbladder and the biliary ductal system into the duodenum. Thel clamp biliary catheter eileen be clamped tomorrow.If no recurrence of her right upper quadrant pain or nausea, can be discharged with the tube clamped. Tube can later be remove
[2021-01-13] MEDS: ALBUTEROL SULFATE NEB 2.5 MG/3 ML INH 1.25 MG INHALATION (20:17)
[2021-01-13 20:20] VITALS: PULSE 72; RESP 18; O2SAT 96
[2021-01-13 20:29] VITALS: PULSE 74; RESP 18
[2021-01-13] MEDS: GABAPENTIN 300 MG CAPSULE 900 MG PO (21:30)
[2021-01-13] MEDS: BACLOFEN 10 MG TABLET 30 MG PO (21:30)
[2021-01-13] MEDS: SENNA/DOCUSATE SODIUM TABLET 2 TAB PO (21:30)
[2021-01-13] MEDS: diazePAM (*CRX) 10 MG TABLET PO (21:41)
[2021-01-13 21:58] VITALS: BP 140/69; PULSE 80; RESP 18; TEMP 37; O2SAT 100
[2021-01-14] VITALS (8 sets, daily range): BP systolic 115–141; BP diastolic 58–74; PULSE 64–84; RESP 12–18; TEMP 36.5–36.6; O2SAT 96–100
[2021-01-14] MEDS: ALBUTEROL SULFATE NEB 2.5 MG/3 ML INH 1.25 MG INHALATION ×2 (08:22→20:43)
[2021-01-14] MEDS: ONDANSETRON INJ 4 MG/2 ML VIAL IV PUSH (09:09)
[2021-01-14] MEDS: SODIUM CHLORIDE 0.9% IV 1,000 ML 50 ML IV CONT ×2 (09:09→09:28)
[2021-01-14] MEDS: BACLOFEN 10 MG TABLET 20 MG PO ×2 (09:28→12:52)
[2021-01-14] MEDS: CARBAMAZEPINE XR 200 MG TAB.ER.12H PO ×2 (09:28→21:13)
[2021-01-14] MEDS: GABAPENTIN 300 MG CAPSULE PO (09:29)
[2021-01-14] MEDS: LIDOCAINE 5% PATCH 2 PATCH TRANSDERM (09:29)
[2021-01-14] MEDS: CIPROFLOXACIN HCL 0.3% OP SOLN 2.5 ML BTL 1 DROP EACH EYE ×4 (09:30→21:14)
[2021-01-14] MEDS: amLODIPine BESYLATE 5 MG TABLET 10 MG PO (09:30)
[2021-01-14] MEDS: ENOXAPARIN 40 MG/0.4 ML SYRINGE SUB-Q (09:30)
[2021-01-14] MEDS: lamoTRIgine 25 MG TABLET PO (09:30)
[2021-01-14] MEDS: LORATADINE 5 MG TABLET PO (09:31)
[2021-01-14] MEDS: LOSARTAN POTASSIUM 50 MG TABLET PO (09:31)
[2021-01-14] MEDS: PANTOPRAZOLE 40 MG TABLET PO ×2 (09:31→21:13)
[2021-01-14] MEDS: ATORVASTATIN 20 MG TABLET PO (09:31)
[2021-01-14] MEDS: NABUMETONE 500 MG TABLET PO ×2 (09:31→18:34)
[2021-01-14] MEDS: TOLNAFTATE 1% POWDER 45 GM BTL 1 APPLIC TOPICAL ×3 (09:32→18:34)
[2021-01-14] MEDS: cycloSPORINE 0.4 ML OPHTH SOLUTION 1 DROP EACH EYE ×2 (09:32→21:14)
[2021-01-14] MEDS: POLYMYXIN/TRIMETHOPRIM OPHTH 10 ML DROPS 2 DROP LEFT EYE ×2 (09:32→21:14)
--- NOTE | 2021-01-14 11:31 | PM.IMPN ---
Progress Note: A&P Assessment and Plan (1) UTI (urinary tract infection): Qualifiers: Hematuria presence: without hematuria Urinary tract infection type: site unspecified Qualified Code(s): N39.0 - Urinary tract infection, site not specified Code(s): N39.0 - Urinary tract infection, site not specified Status: Acute Assessment and Plan: Continue cefazolin for urinary tract infection to complete r 7 to 10 days total. Consider transitioning from IV antibiotics to p.o. antibiotics as tolerated. (2) Generalized abdominal pain: Code(s): R10.84 - Generalized abdominal pain Status: Acute Assessment and Plan: Abdominal symptoms are essentially at baseline per patient. PReviously concern for acalculous cholecystitis, diminished gallbladder EF on HIDA scan, however no signs of inflamed gallbladder on US including no wall thickening or pericholecystic fluid. S/p percutaneous cholecystotomy tube placement will monitor drainage and s/x resolution. So far no growth of any organism in bile. Continue PRNs incl zofran and norco w/ morphine for breakthrough. Does not appear constipated. Continue BID protonix as ulcer also on differential although lower. Pt reports having had ulcer in past. Based on effect of tube, may change abx for h pylori and consider GI involvement for EGD. (3) Multiple sclerosis: Code(s): G35 - Multiple sclerosis Status: Chronic Assessment and Plan: Wheelchair bound with limited UE BL mobility at [facility]. Based on symptoms is not in acute episode. Not on maintenance therapy. Per patient, did not do well on interferons and another medication she cannot recall as outpatient, and team decided against chronic therapy. Baclofen and Neurontin help her with pain. Speech on board, helping cautiously advance diet. Will need close neurology or ophthalmology follow-up on discharge, to manage multiple sclerosis, as slowly worsening vision symptoms over the last several months. (4) Pain of left orbit: Code(s): H57.12 - Ocular pain, left eye Status: Acute Assessment and Plan: Patient previously with redness to the left eye, now resolving. Slight redness to the right but less so. She has been seen by her doctor for this and had steroid drops in early November. Also had a CT of the orbits later part of November. He has not seen an ag service manager. Uveitis? Corneal abrasion?. Explained that normally do not treat eye diseases Transfer was offered. Vision is unaffected, no fever or chills, no pain behind the eye or in the mastoid, no signs of orbital cellulitis, or preorbital cellulitis Trimethoprim polymyxin eyedrops are helping symptoms. (5) Hypertension: Qualifiers: Hypertension type: essential hypertension Qualified Code(s): I10 - Essential (primary) hypertension Code(s): I10 - Essential (primary) hypertension Status: Acute Assessment and Plan: Blood pressure remains well controlled. Will continue home medications. Continue amlodipine 10 mg PO daily and losartan 50 mg PO daily. 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 Suprapubic catheter is in place. SP catheter was exchanged out by Urology 01/05. (7) DVT prophylaxis: Code(s): Z29.9 - Encounter for prophylactic measures, unspecified Status: Acute Assessment and Plan: Continue Lovenox (8) Erosive gastritis: Code(s): K29.60 - Other gastritis without bleeding Status: Acute Assessment and Plan: Continue Protonix. currently tolerating diet well per patient. Subjective Date/time seen: 01/14/21 11:31 No acute medical complaints, resting comfortably in bed. Patient notes improved abdominal pain. Also notes improved left eye discomfort. No fevers or chills. Rev
[2021-01-14] MEDS: GABAPENTIN 300 MG CAPSULE 900 MG PO (21:12)
[2021-01-14] MEDS: BACLOFEN 10 MG TABLET 30 MG PO (21:12)
[2021-01-14] MEDS: SENNA/DOCUSATE SODIUM TABLET 2 TAB PO (21:13)
[2021-01-14] MEDS: diazePAM (*CRX) 10 MG TABLET PO (22:25)
[2021-01-15] MEDS: SODIUM CHLORIDE 0.9% IV 1,000 ML 50 ML IV CONT (05:37)
[2021-01-15] MEDS: CIPROFLOXACIN HCL 0.3% OP SOLN 2.5 ML BTL 1 DROP EACH EYE ×6 (05:43→23:51)
[2021-01-15 06:00] VITALS: BP 131/69; PULSE 65; RESP 18; TEMP 35.7; O2SAT 100
[2021-01-15 07:00] LABS: Basophils Percent Auto 0.5 % (0.2-1.2); Eosinophils Absolute Auto 0.2 K/mm3 (0-0.3); Eosinophils Percent Auto 3.5 % (0-4.4); Hematocrit 38.2 % (37.0-47.0); Hemoglobin 11.9 g/dL (12.0-15.0); Immature Granulocyte Absolute 0.02 K/mm3 (0.00-0.031); Immature Granulocyte Percent A 0.4 % (0-0.5); Lymphocytes Absolute Auto 1.65 K/mm3 (0.9-3.2); Lymphocytes Percent Auto 29.1 % (18.3-44.2); Mean Corpuscular HGB Conc 31.2 g/dl (32-36); Mean Corpuscular Hemoglobin 30.2 pg (26-34); Mean Platelet Volume 9.5 fl (7.4-10.4); Monocytes Absolute Auto 0.5 K/mm3 (0.1-0.6); Monocytes Percent Auto 9.5 % (2.6-8.5); Neutrophils Absolute Auto 3.2 K/mm3 (1.3-6.7); Platelet Count Result 228 k/mm3 (150-375); Red Blood Count 3.94 M/mm3 (4.2-5.4); Red Cell Distribution Width 13.1 % (11.5-14.5); White Blood Count 5.7 K/mm3 (4.5-10.0)
[2021-01-15 07:20] LABS: Alanine Aminotransferase 39 U/L (4-35); Albumin Level 3.6 g/dL (3.5-5.1); Alkaline Phosphatase 107 U/L (38-126); Anion Gap 6 mmol/L (8-16); Aspartate Amino Transferase 41 U/L (14-36); Bilirubin,Total < 0.1 mg/dL (0.2-1.3); Blood Urea Nitrogen 14 mg/dL (7-17); Calcium 9.2 mg/dL (8.4-10.2); Carbon Dioxide 28 mmol/L (22-30); Chloride 100 mmol/L (98-107); Estimated CRCL calculation 166 ml/min; Estimated Glomerular Filt Rate > 60; Glucose 93 mg/dL (65-110); Phosphorus 3.3 mg/dL (2.5-4.5); Potassium 3.8 mmol/L (3.4-5.0); Sodium 134 mmol/L (137-145)
[2021-01-15] MEDS: ONDANSETRON INJ 4 MG/2 ML VIAL IV PUSH (09:50)
[2021-01-15] MEDS: POLYMYXIN/TRIMETHOPRIM OPHTH 10 ML DROPS 2 DROP LEFT EYE ×2 (09:57→21:17)
[2021-01-15] MEDS: ENOXAPARIN 40 MG/0.4 ML SYRINGE SUB-Q (09:57)
[2021-01-15] MEDS: LORATADINE 5 MG TABLET PO (09:58)
[2021-01-15] MEDS: GABAPENTIN 300 MG CAPSULE PO (09:58)
[2021-01-15] MEDS: ATORVASTATIN 20 MG TABLET PO (09:58)
[2021-01-15] MEDS: PANTOPRAZOLE 40 MG TABLET PO ×2 (09:58→21:10)
[2021-01-15] MEDS: cycloSPORINE 0.4 ML OPHTH SOLUTION 1 DROP EACH EYE ×2 (09:59→21:17)
[2021-01-15] MEDS: BACLOFEN 10 MG TABLET 20 MG PO ×2 (09:59→12:40)
[2021-01-15] MEDS: amLODIPine BESYLATE 5 MG TABLET 10 MG PO (09:59)
[2021-01-15] MEDS: NABUMETONE 500 MG TABLET PO ×2 (10:00→18:09)
[2021-01-15] MEDS: lamoTRIgine 25 MG TABLET PO (10:00)
[2021-01-15] MEDS: LOSARTAN POTASSIUM 50 MG TABLET PO (10:00)
[2021-01-15] MEDS: CARBAMAZEPINE XR 200 MG TAB.ER.12H PO ×2 (10:00→21:18)
[2021-01-15] MEDS: TOLNAFTATE 1% POWDER 45 GM BTL 1 APPLIC TOPICAL ×3 (10:02→18:07)
--- NOTE | 2021-01-15 12:23 | PM.IMPN ---
Progress Note: A&P Assessment and Plan (1) UTI (urinary tract infection): Qualifiers: Hematuria presence: without hematuria Urinary tract infection type: site unspecified Qualified Code(s): N39.0 - Urinary tract infection, site not specified Code(s): N39.0 - Urinary tract infection, site not specified Status: Acute Assessment and Plan: Continue cefazolin for urinary tract infection to complete r 7 to 10 days total. transitioning from cefazolin IV to p.o. Keflex today. Aim to complete 10 day course. (2) Generalized abdominal pain: Code(s): R10.84 - Generalized abdominal pain Status: Acute Assessment and Plan: Abdominal symptoms are essentially at baseline per patient. PReviously concern for acalculous cholecystitis, diminished gallbladder EF on HIDA scan, however no signs of inflamed gallbladder on US including no wall thickening or pericholecystic fluid. S/p percutaneous cholecystotomy tube placement will monitor drainage and s/x resolution. So far no growth of any organism in bile. Continue PRNs incl zofran and norco w/ morphine for breakthrough. Does not appear constipated. Continue BID protonix as ulcer also on differential although lower. Pt reports having had ulcer in past. Based on effect of tube, may change abx for h pylori and consider GI involvement for EGD. (3) Multiple sclerosis: Code(s): G35 - Multiple sclerosis Status: Chronic Assessment and Plan: Wheelchair bound with limited UE BL mobility at [facility]. Based on symptoms is not in acute episode. Not on maintenance therapy. Per patient, did not do well on interferons and another medication she cannot recall as outpatient, and team decided against chronic therapy. Baclofen and Neurontin help her with pain. Speech on board, helping cautiously advance diet. Will need close neurology or ophthalmology follow-up on discharge, to manage multiple sclerosis, as slowly worsening vision symptoms over the last several months. (4) Pain of left orbit: Code(s): H57.12 - Ocular pain, left eye Status: Acute Assessment and Plan: Patient previously with redness to the left eye, now resolving. Slight redness to the right but less so. She has been seen by her doctor for this and had steroid drops in early November. Also had a CT of the orbits later part of November. He has not seen an senior mechanical development engineer. Uveitis? Corneal abrasion?. Explained that normally do not treat eye diseases Transfer was offered. Vision is unaffected, no fever or chills, no pain behind the eye or in the mastoid, no signs of orbital cellulitis, or preorbital cellulitis Trimethoprim polymyxin eyedrops are helping symptoms. (5) Hypertension: Qualifiers: Hypertension type: essential hypertension Qualified Code(s): I10 - Essential (primary) hypertension Code(s): I10 - Essential (primary) hypertension Status: Acute Assessment and Plan: Blood pressure remains well controlled. Will continue home medications. Continue amlodipine 10 mg PO daily and losartan 50 mg PO daily. 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 Suprapubic catheter is in place. SP catheter was exchanged out by Urology 01/05. (7) DVT prophylaxis: Code(s): Z29.9 - Encounter for prophylactic measures, unspecified Status: Acute Assessment and Plan: Continue Lovenox (8) Erosive gastritis: Code(s): K29.60 - Other gastritis without bleeding Status: Acute Assessment and Plan: Continue Protonix. currently tolerating diet well per patient. Subjective Date/time seen: 01/15/21 12:23 No acute medical complaints. Some dryness of the left eye, otherwise feeling better. Abdominal pain has subsided. Review of Systems Review of System
[2021-01-15 14:55] VITALS: BP 113/59; PULSE 98; RESP 14; TEMP 36.8; O2SAT 95
--- NOTE | 2021-01-15 18:28 | PC.NURSE ---
Nurse clamped biliary catheter on percutaneous drain per Dr. Hernandez's note at 1800 01/15. Nurse continued to monitor for pain and nausea. At 1830 pt complained of discomfort and pain on right upper quadrant. Nurse unclamped drain and pt stated she felt immediate relief. Nurse notified Dr. Mesa of nurse findings.
[2021-01-15] MEDS: HYDROcodone/acetaminophen (*CRX) 5-325 MG TABLET 1 TAB PO (19:09)
[2021-01-15] MEDS: LIDOCAINE 5% PATCH 2 PATCH TRANSDERM (19:12)
[2021-01-15] MEDS: CEPHALEXIN 250 MG CAPSULE PO ×2 (19:13→23:48)
[2021-01-15 20:00] VITALS: PULSE 98; RESP 14; O2SAT 95
[2021-01-15 20:25] VITALS: PULSE 73; RESP 18; O2SAT 95
[2021-01-15] MEDS: ALBUTEROL SULFATE NEB 2.5 MG/3 ML INH 1.25 MG INHALATION (20:27)
[2021-01-15 20:35] VITALS: PULSE 88; RESP 18; O2SAT 95
[2021-01-15] MEDS: SENNA/DOCUSATE SODIUM TABLET 2 TAB PO (21:09)
[2021-01-15] MEDS: BACLOFEN 10 MG TABLET 30 MG PO (21:11)
[2021-01-15] MEDS: GABAPENTIN 300 MG CAPSULE 900 MG PO (21:16)
[2021-01-15 21:52] VITALS: BP 126/50; PULSE 85; RESP 18; TEMP 36.8; O2SAT 99
[2021-01-16] MEDS: MORPHINE SULFATE (*CRX) 2 MG/ML INJ IV PUSH (00:08)
[2021-01-16] MEDS: SODIUM CHLORIDE 0.9% IV 1,000 ML 50 ML IV CONT (00:12)
[2021-01-16] MEDS: CIPROFLOXACIN HCL 0.3% OP SOLN 2.5 ML BTL 1 DROP EACH EYE ×3 (05:26→11:59)
[2021-01-16] MEDS: CEPHALEXIN 250 MG CAPSULE PO ×2 (05:26→11:59)
[2021-01-16 05:58] VITALS: BP 119/66; PULSE 70; RESP 16; TEMP 36.6; O2SAT 99
[2021-01-16 06:42] LABS: Basophils Percent Auto 0.6 % (0.2-1.2); Eosinophils Absolute Auto 0.2 K/mm3 (0-0.3); Hematocrit 39.3 % (37.0-47.0); Hemoglobin 12.1 g/dL (12.0-15.0); Immature Granulocyte Absolute 0.02 K/mm3 (0.00-0.031); Immature Granulocyte Percent A 0.4 % (0-0.5); Lymphocytes Percent Auto 34.4 % (18.3-44.2); Mean Corpuscular HGB Conc 30.8 g/dl (32-36); Mean Corpuscular Hemoglobin 29.9 pg (26-34); Monocytes Absolute Auto 0.5 K/mm3 (0.1-0.6); Monocytes Percent Auto 9.5 % (2.6-8.5); Neutrophils Absolute Auto 2.5 K/mm3 (1.3-6.7); Neutrophils Percent Auto 51.1 % (45.5-73.1); Platelet Count Result 239 k/mm3 (150-375); Red Blood Count 4.05 M/mm3 (4.2-5.4); Red Cell Distribution Width 13.1 % (11.5-14.5); White Blood Count 4.9 K/mm3 (4.5-10.0)
[2021-01-16 07:10] LABS: Alanine Aminotransferase 37 U/L (4-35); Albumin Level 3.6 g/dL (3.5-5.1); Alkaline Phosphatase 129 U/L (38-126); Anion Gap 6 mmol/L (8-16); Aspartate Amino Transferase 36 U/L (14-36); Bilirubin,Total < 0.1 mg/dL (0.2-1.3); Blood Urea Nitrogen 16 mg/dL (7-17); Calcium 9.1 mg/dL (8.4-10.2); Carbon Dioxide 29 mmol/L (22-30); Chloride 100 mmol/L (98-107); Estimated CRCL calculation 130 ml/min; Estimated Glomerular Filt Rate > 60; Glucose 108 mg/dL (65-110); Phosphorus 3.4 mg/dL (2.5-4.5); Potassium 3.7 mmol/L (3.4-5.0); Sodium 135 mmol/L (137-145)
[2021-01-16] MEDS: ONDANSETRON INJ 4 MG/2 ML VIAL IV PUSH (09:00)
[2021-01-16] MEDS: HYDROcodone/acetaminophen (*CRX) 5-325 MG TABLET 1 TAB PO (09:00)
[2021-01-16] MEDS: LOSARTAN POTASSIUM 50 MG TABLET PO (09:03)
[2021-01-16] MEDS: POLYMYXIN/TRIMETHOPRIM OPHTH 10 ML DROPS 2 DROP LEFT EYE (09:03)
[2021-01-16] MEDS: polyethylene glycoL 3350 17 GM POWD.PACK PO (09:03)
[2021-01-16] MEDS: cycloSPORINE 0.4 ML OPHTH SOLUTION 1 DROP EACH EYE (09:03)
[2021-01-16] MEDS: ENOXAPARIN 40 MG/0.4 ML SYRINGE SUB-Q (09:03)
[2021-01-16] MEDS: amLODIPine BESYLATE 5 MG TABLET 10 MG PO (09:04)
[2021-01-16] MEDS: PANTOPRAZOLE 40 MG TABLET PO (09:04)
[2021-01-16] MEDS: GABAPENTIN 300 MG CAPSULE PO (09:04)
[2021-01-16] MEDS: NABUMETONE 500 MG TABLET PO (09:04)
[2021-01-16] MEDS: BACLOFEN 10 MG TABLET 20 MG PO ×2 (09:04→11:59)
[2021-01-16] MEDS: ATORVASTATIN 20 MG TABLET PO (09:04)
[2021-01-16] MEDS: lamoTRIgine 25 MG TABLET PO (09:04)
[2021-01-16] MEDS: LORATADINE 5 MG TABLET PO (09:04)
[2021-01-16] MEDS: TOLNAFTATE 1% POWDER 45 GM BTL 1 APPLIC TOPICAL ×2 (09:05→11:59)
[2021-01-16] MEDS: CARBAMAZEPINE XR 200 MG TAB.ER.12H PO (09:05)
[2021-01-16] MEDS: ALBUTEROL SULFATE NEB 2.5 MG/3 ML INH 1.25 MG INHALATION (09:18)
[2021-01-16 09:19] VITALS: PULSE 76; RESP 18; O2SAT 98
[2021-01-16 09:29] VITALS: PULSE 76; RESP 18
--- NOTE | 2021-01-16 12:41 | PM.PNGS ---
Progress Note: A&P Assessment and Plan (1) Cholecystitis without calculus: Code(s): K81.9 - Cholecystitis, unspecified Status: Acute Assessment and Plan: patient had recurrent pain with capping the cholecystostomy tube for just an hour. Cholecystogram on Saturday showed a patent cystic duct. Not quite sure how this resulted in discomfort in that short a period of time but would not resume capping today. If patient is here another couple of days, could retry capping it again on Saturday. If she is discharged, would simply discharge with cholecystostomy tube to gravity. I could see her in about 3 weeks in the clinic. (2) Multiple sclerosis: Code(s): G35 - Multiple sclerosis Status: Chronic (3) Neurogenic bladder: Code(s): N31.9 - Neuromuscular dysfunction of bladder, unspecified Status: Chronic Subjective Subjective Date/Time Seen: 01/16/21 12:41 Cholecystostomy tube was capped briefly yesterday. But in less than an hour the patient noted pain or pressure resulting in discomfort and putting the tube back to gravity. She has been eating well with the tube to gravity. No complaints of right upper quadrant pain. Review of Systems Review of Systems: All systems reviewed & are unremarkable except as noted in HPI and below Constitutional: Constitutional: Denies headache(s) Gastrointestinal: Gastrointestinal: Reports as per HPI Neurologic: Denies confusion and Denies headache(s) Exam GI: Inspection: non-distended and incision ( Cholecystostomy tube dressing dry and intact, draining bile.) GI Palp: Yes Soft to palpation, Yes Tenderness to palpation present (GI) ( Mild tenderness at drain site. Otherwise negative) and No Palpable mass present Auscultation: normal bowel sounds Objective Data Vital Signs Vital Signs: Vital Signs - 24 hr 01/15/21 14:55 01/15/21 20:00 01/15/21 20:25 Temperature 36.8 C Pulse Rate 98 98 73 Respiratory Rate 14 14 18 Blood Pressure 113/59 L Pulse Oximetry 95 95 95 01/15/21 20:35 01/15/21 21:52 01/16/21 05:58 Temperature 36.8 C 36.6 C Pulse Rate 88 85 70 Respiratory Rate 18 18 16 Blood Pressure 126/50 L 119/66 Pulse Oximetry 95 99 99 01/16/21 09:19 01/16/21 09:29 Temperature Pulse Rate 76 76 Respiratory Rate 18 18 Blood Pressure Pulse Oximetry 98 Intake/Output Intake/Output: Intake & Output 01/13/21 01/14/21 01/15/21 01/16/21 23:59 23:59 23:59 23:59 Intake Total 1870 2210 2180 1100 Output Total 1000 0 1989 700 Balance 870 100 190 400 Meds/Results Medications: Active Medications Generic Name Dose Route Start Last Admin Trade Name Freq PRN Reason Stop Dose Admin Hydrocodone Bitart/Acetaminophen 1 tab 01/06/21 17:27 01/16/21 09:00 Hydrocodone/Acetaminophen (*Crx) 5-325 Mg Tablet PO 1 tab Q6H PRN Administration Pain Rated 6-10 Albuterol 2 puff 01/04/21 13:34 Albuterol Sulfate (*Sp) Aerosol 1 Puff INHALATION Q4-6H PRN shortness of breath or wheezing Albuterol 1.25 mg 01/06/21 20:00 01/16/21 09:18 Albuterol Sulfate Neb 2.5 Mg/3 Ml Inh INHALATION 1.25 mg Q12HRT DANIELA Administration Amlodipine Besylate 10 mg 01/05/21 09:00 01/16/21 09:04 Amlodipine Besylate 5 Mg Tablet PO 10 mg DAILY DANIELA Administration Atorvastatin Calcium 20 mg 01/05/21 09:00 01/16/21 09:04 Atorvastatin 20 Mg Tablet PO 20 mg DAILY DANIELA Administration Baclofen 20 mg 01/05/21 08:00 01/16/21 09:04 Baclofen 10 Mg Tablet PO 20 mg 0800 DANIELA Administration Baclofen 20 mg 01/05/21 12:00 01/16/21 11:59 Baclofen 10 Mg Tablet PO 20 mg 1200 DANIELA Administration Baclofen 30 mg 01/04/21 21:00 01/15/21 21:11 Baclofen 10 Mg Tablet PO 30 mg HS DANIELA Administration Budesonide/Formoterol Fumarate 2 puff 01/04/21 20:00 01/16/21 09:18 Budesonide/Form 160-4.5 Mcg (*Sp) INHALATION 2 puff Q12HRT DANIELA Administration Carbamazepine 200 mg 01/04/21 21:00
[2021-01-16 14:00] VITALS: BP 143/66; PULSE 79; RESP 18; TEMP 36.7; O2SAT 99
--- NOTE | 2021-01-16 18:30 | PM.DS ---
DS: Admitting Diagnosis Admitting Diagnosis abdominal pain DS: Discharge Diagnosis Discharge Diagnosis (1) UTI (urinary tract infection): Qualifiers: Hematuria presence: without hematuria Urinary tract infection type: site unspecified Qualified Code(s): N39.0 - Urinary tract infection, site not specified Code(s): N39.0 - Urinary tract infection, site not specified Status: Acute (2) Neurogenic bladder: Code(s): N31.9 - Neuromuscular dysfunction of bladder, unspecified Status: Chronic (3) Cholecystitis without calculus: Code(s): K81.9 - Cholecystitis, unspecified Status: Acute DS: Summary Hospital Course Hospital Course: 55yo bedbound lady with advanced MS presenting with abdominal pain. Imaging suggesting hepato-biliary etiology, and patient underwent cholecystostomy tube with general surgery, with draining to gravity, then clamped, then draining to suction. Per surgery, will be removed within a few eweks as outpatient. Also seen to have uti which likely contributed to abdominal pain. IV antibiotics narrowed to po antibiotics. Patient reported resolution of abdominal pain with treatment. She is at high risk for reinfection given neurogenic bladder and incontinence. Discussed importance of hygiene. During admission also complained of left eye discomfort. No signs in history on on physical exam to suggest orbital, preorbital cellulitis or mastoiditis. Unilateral discomfort and conjunctival injection consistent with conjunctivitis, and patient treated with trimethoprim-polymixin eyedrops which helped resolve symptoms. Some level of discomfort also atrributable to stye. Remainder of regimen of neuro meds not changed, and discussed importance of neuro followup with patient. Status at Discharge Functional status at discharge: bed bound Overall status at discharge: patient is progressing back to baseline Time Spent with Patient Time attestation: Total time spent providing and/or coordinating discharge services: Time spent: Less than 30 minutes Exam Const: General: no acute distress Neck: Neck: no JVD Resp: Effort & Inspection: normal respiratory effort Auscultation: clear to auscultation bilaterally Cardio: Rate: regular rate Rhythm: regular rhythm GI: GI Palp: Yes Soft to palpation and No Tenderness to palpation present (GI) Other: c-tube in place DS: Data Data Completed and Pending Labs on day of discharge: Labs from last 24 hours 01/16/21 01/16/21 06:22 06:22 WBC 4.9 RBC 4.05 L Hgb 12.1 Hct 39.3 MCV 97.0 MCH 29.9 MCHC 30.8 L RDW 13.1 Plt Count 239 MPV 10.0 Immature Gran % (Auto) 0.4 Neut % (Auto) 51.1 Lymph % (Auto) 34.4 Irion % (Auto) 9.5 H Eos % (Auto) 4.0 Baso % (Auto) 0.6 Lymph # (Auto) 1.70 Irion # (Auto) 0.5 Eos # (Auto) 0.2 Baso # (Auto) 0.0 Abs Immat Gran (auto) 0.02 Absolute Neuts (auto) 2.5 Absolute Nucleated RBC 0.0 Nucleated RBC % 0.0 Sodium 135 L Potassium 3.7 Chloride 100 Carbon Dioxide 29 Anion Gap 6 L BUN 16 Creatinine 0.40 L Estim Creat Clear Calc 130 Estimated GFR > 60 Glucose 108 Calcium 9.1 Phosphorus 3.4 Magnesium 2.0 Total Bilirubin < 0.1 L AST 36 ALT 37 H Alkaline Phosphatase 129 H Total Protein 7.0 Albumin 3.6 Discharge Plan Discharge Attending physician on discharge: Svetlana Mesa Consulting providers: Stefano Rosen ; Boni Hernandez ; Mecca Winters ; Napoleon Osuna ; Alexis Forman ; Monie Cabral ; Sedrick Salvador V. Discharging Clinician: Svetlana Mesa Patient Disposition: Home Health Service Activity: no shower, no straining and no driving Diet: as tolerated and heart healthy Discharge Instructions: Per Care Coordination. Patient to resume [facility] services P: [phone]. RN please fax discharge instructions to: [phone] Cholecystostomy draining to gravity. If becomes painful, return to ER.
== END 2021-01-16 16:59 | disposition home health service (06) | DRG 445 ==
LOC: ANHED 07:22 → ANH3MEDSUR 08:06
PROVIDERS: Internal Medicine Nephrology; Surgery; Admitting Provider Internal Medicine; Emergency Provider Emergency Medicine; PCP Internal Medicine; Visit Provider Internal Medicine
DX: K81.0 Acute cholecystitis (principal); N39.0 Urinary tract infection, site not specified; N31.2 Flaccid neuropathic bladder, not elsewhere classified; G35 Multiple sclerosis; K21.9 Gastro-esophageal reflux disease without esophagitis; L30.9 Dermatitis, unspecified; J45.909 Unspecified asthma, uncomplicated; I10 Essential (primary) hypertension; E78.5 Hyperlipidemia, unspecified; K59.00 Constipation, unspecified; K29.60 Other gastritis without bleeding; H10.32 Unspecified acute conjunctivitis, left eye; L89.152 Pressure ulcer of sacral region, stage 2; Z93.59 Other cystostomy status; Z86.711 Personal history of pulmonary embolism
CPT/HCPCS: 36415; 47490; 47531; 74177; 76705; 78227; 80048; 80053; 81001; 83690; 83735; 84100; 85025; 85610; 85730; 86140; 87070; 87075; 87086; 87088; 87205; 92610; 94640; 96361; 96365; 96366; 96372; 96375; 96376; 99285; A9270; A9537; C1729; G0378; J0690; J0692; J1650; J2270; J2405; J2805; J7030; Q9967

== ENCOUNTER 2021-01-27 21:54 | Inpatient (IN) | payer MEDICARE, MEDICAID, SELFPAY ==
[2021-01-27] VITALS (12 sets, daily range): BP systolic 144–160; BP diastolic 88–101; PULSE 94–105; RESP 14–20; TEMP 37; O2SAT 93–100
--- NOTE | ~2021-01-27 | XR_ITS ---
XR abdomen/kub 1V 01/31/2021 13:39 Indication: Epigastric abdominal pain Procedure: KUB Comparison: 02/21/2017 Findings: There is a pigtail catheter overlying the right. There is moderate colonic fecal loading. T here are multiple pelvic phleboliths. Bowel gas pattern is nonobstructive. Lung bases unremarkable. N o acute osseous abnormality. Impression: 1: Nonobstructive bowel gas pattern. Moderate colonic fecal loading. Reviewed, dictated and finalized at location A. Impression: 1: Nonobstructive bowel gas pattern. Moderate colonic fecal loading.
--- NOTE | ~2021-01-27 | CT_ITS ---
EXAMINATION: CT abdomen pelvis wo con EXAM DATE: 01/28/2021 00:04 INDICATION: Low abdominal pain . TECHNIQUE: Spiral CT of the abdomen and pelvis was performed without contrast. Axial, coronal and sag ittal images were reviewed. The dose-length product (DLP) for this examination was 865.51 mGy-cm. T he exposure was tailored according to patient size (auto mA exposure control), and iterative reconstr uction (ASIR) was used as additional dose reduction technique. Comparison is made to prior examinatio n from 01/04/2021. FINDINGS: There is no nephrolithiasis or hydronephrosis. The uterus is unremarkable. Suprapubic c atheter. The liver, spleen, adrenal glands and pancreas are unremarkable. There is a percutaneous c holecystostomy tube within collapsed bladder. There is no retroperitoneal or pelvic lymphadenopathy. Small umbilical fat-containing hernia. The appendix is normal. There is small sliding gastroesophageal hiatal hernia. There is expected am ount of colonic stool. No free intraperitoneal gas. Right lower lobe segmental, left lower lobe s ubsegmental atelectasis. Trace right pleural effusion. There are no osteoblastic or osteolytic lesio ns identified. IMPRESSION: 1. Cholecystostomy tube and suprapubic catheter in position. 2. No acute abdominal findings. Reviewed, dictated and finalized at location A.
--- NOTE | ~2021-01-27 | CT_ITS ---
EXAMINATION: CT brain wo con EXAM DATE: 01/28/2021 00:04 INDICATION: Headache. Multiple sclerosis. TECHNIQUE: Spiral CT of the head was performed without contrast. Axial, coronal and sagittal images were reviewed. The dose-length product (DLP) for this examination was 605.33 mGy-cm. The exposure w as tailored according to patient size, and iterative reconstruction (ASIR) was used as additional dos e reduction technique. Comparison is made to prior examination from 01/15/2020. FINDINGS: There is no acute intraparenchymal hemorrhage. No evidence of intraparenchymal brain mass lesion. No evidence of acute infarction. Please note that initial head CT has limited sensitivity f or small or acute infarctions. Periventricular hypodensities unchanged, probably from multiple sclero sis given history provided. There is intracranial carotid arteriosclerosis. There are no extra-axial collections. There is no mass effect or midline shift. The orbits are unremarkable. Soft tissue i s unremarkable. The visualized sinuses and mastoid air cells are well aerated. IMPRESSION: 1. No acute intracranial findings. 2. Periventricular hypodensities consistent with multiple sclerosis.. Reviewed, dictated and finalized at location A.
--- NOTE | ~2021-01-27 | XR_ITS ---
EXAMINATION: XR fl guide central line place DATE: 02/03/2021 10:12 INDICATION: Port catheter insertion. TECHNIQUE: 2 fluoroscopic images of portions of the chest were obtained during procedure performed by Dr. Wilburn. Radiologist was not present for the imaging or procedure. The amount of fluoroscopy nayely e used during this procedure was 0.6 minutes. COMPARISON: Chest radiograph dated 01/30/2021 FINDINGS: Interval placement of a right internal jugular central venous port catheter with distal tip projectin g over the high right atrium. Visualized portions of the right lung are clear. IMPRESSION: 1. Right internal jugular central venous port catheter tip at the high right atrium. See procedure no te for further detail. Reviewed, dictated and finalized at location A. IMPRESSION: 1. Right internal jugular central venous port catheter tip at the high right at [facility]. See procedure note for further detail.
--- NOTE | ~2021-01-27 | XR_ITS ---
EXAMINATION: XR chest 1V portable EXAM DATE: 01/30/2021 13:44 INDICATION: Chest pain . TECHNIQUE: Portable AP frontal chest x-ray was obtained. Comparison is made to prior examination from 01/27/2021. FINDINGS: Bibasilar linear opacities consistent with atelectasis. Mild elevation of right hemidiaphra gm. No pneumothorax or pleural effusion. Cardiomediastinal silhouette is normal. There are no osseous abnormalities identified. IMPRESSION: 1. Bibasilar subsegmental atelectasis unchanged. 2. Mildly elevated right hemidiaphragm. Reviewed, dictated and finalized at location B.
--- NOTE | ~2021-01-27 | XR_ITS ---
EXAMINATION: XR chest port-a-cath/central DATE: 02/03/2021 10:37 INDICATION: Port catheter insertion TECHNIQUE: frontal view of the chest was obtained. COMPARISON: Chest radiograph dated 01/30/2021 FINDINGS: New right internal jugular central venous port catheter with distal tip in the high right atrium. Unc hanged linear discoid atelectasis/scarring in the left lower lung zone. No pulmonary edema, pleural e ffusion or pneumothorax. The cardiomediastinal silhouette is normal. Visualized bones and soft tissue s are unremarkable. IMPRESSION: 1. Right internal jugular central venous port catheter tip in the high right atrium. 2. Unchanged linear discoid atelectasis/scarring in the left lower lung zone. Reviewed, dictated and finalized at location A. IMPRESSION: 1. Right internal jugular central venous port catheter tip in the high right at rium. 2. Unchanged linear discoid atelectasis/scarring in the left lower lung zone.
--- NOTE | ~2021-01-27 | XR_ITS ---
XR chest 1V portable 01/27/2021 22:54 Indication: Weakness, fever, nausea Procedure: AP portable chest Comparison: Comparison to multiple prior studies sequentially, with oldest reviewed study dated 03/20. Findings: Heart size normal. Elevated right diaphragm. Left basilar atelectasis. No focal pneumonia, pleural effusion, edema or pneumothorax. Impression: 1: Left basilar atelectasis. 2: Chronic elevation of the right diaphragm suspicious for phrenic nerve paralysis. Reviewed, dictated and finalized at location A. Impression: 1: Left basilar atelectasis. 2: Chronic elevation of the right diaphragm suspicious for phrenic nerve paral ysis.
--- NOTE | 2021-01-27 22:39 | ECG_ITS ---
Measurements Intervals [place] Rate: 92 P: 76 NM: 176 QRS: 92 QRSD: 94 T: 44 QT: 341 QTc: 423 Interpretive Statements SINUS RHYTHM POSSIBLE RIGHT ATRIAL ENLARGEMENT DELAYED PRECORDIAL R/S TRANSITION BASELINE ARTIFACT- I, II, III, AVR, AVL, AVF, V1-V2 BORDERLINE ECG Electronically Signed On 01-28-2021 6:51:42 CDT by Chucky Lassiter D.O.
--- NOTE | 2021-01-27 23:56 | PC.NURSE ---
unable to obtain IV access multiple RN attempts, EDP hillary and charge nurse made aware.
--- NOTE | 2021-01-27 23:57 | ED.GENADULT ---
HPI - General Adult General Chief complaint: Abdominal Pain Stated complaint: not feeling well Time Seen by Provider: 01/27/21 22:18 Related Data Home Medications Medication Instructions Recorded Confirmed Restasis 1 drp OPHTHALMIC (EYE) Q12H 03/30/19 01/04/21 cetirizine 5 mg PO DAILY 03/30/19 01/04/21 gabapentin 300 mg PO DAILY 03/30/19 01/04/21 polyethylene glycol 3350 [Miralax] 17 g PO EVERY OTHER DAY 03/30/19 01/04/21 lamotrigine 25 mg tablet 25 mg PO DAILY tablet 05/22/19 01/04/21 baclofen 20 mg PO 0800 01/04/21 01/04/21 baclofen 30 mg PO HS 01/04/21 01/04/21 gabapentin 900 mg PO HS 01/04/21 01/04/21 lidocaine 2 patch TRANSDERMAL DAILY 01/04/21 01/04/21 Allergies Allergy/AdvReac Type Severity Reaction Status Date / Time Sulfa (Sulfonamide Allergy Mild Swelling Verified 01/27/21 22:10 Antibiotics) prochlorperazine Allergy Unknown Sweating Verified 01/27/21 22:10 lisinopril Allergy Unknown Verified 01/27/21 22:10 ibuprofen AdvReac Unknown Nausea Verified 01/27/21 22:10 [facility] Past Medical History Medical History Abnormal CT scan, colon Anemia Asthma Bunion rt foot Cataract, right eye Clostridium difficile infection Contracture of toe rt foot Dilated pancreatic duct Ear infection Eczema Erosive gastritis Fibroids Fracture lt femur, lt tibia GERD (gastroesophageal reflux disease) Hyperlipidemia Hypertension Knee pain right knee after injury Methicillin resistant Staph aureus culture positive Multiple sclerosis Onychomycosis Pneumonia Pressure ulcer of coccygeal region Pulmonary embolism Seasonal allergies Suprapubic catheter UTI (urinary tract infection) Vitreous floater Left eye Wrist pain right Surgical History Surgical History H/O rotator cuff surgery rt H/O toe surgery History of bladder surgery History of mandibular surgery Hx of tubal ligation No significant past surgical history Family History Family History Sibling Heart disease Patient's sister is in good health Cerebrovascular accident Family history of cardiovascular disease Hypertension Father Family history of malignant neoplasm Hypertension Mother Type 2 diabetes mellitus Family history of arthritis Hypertension Son Alive and well Daughter Alive and well Grandparent Breast cancer Social History Social History Social History: Patient lives at home with her . Lifelong nonsmoker. She drinks 1-2 alcoholic drinks per month. No drug use. They do have 3 cats. She has 2 providers that help her 7 days a week for 10 hours a day. She is a full code. is listed as the person to notify. Smoking status: Never smoker Second hand tobacco smoke exposure: No Alcohol intake: never Drinks per week: 1 Substance use: never Substance use type: does not use Gender identity (if verbalized by the patient): Female Spiritual care concerns: No Agree to blood products: Yes Course Vital Signs Vital signs: Vital Signs Temperature 37.0 C 01/27/21 21:52 Pulse Rate 105 H 01/27/21 21:52 Respiratory Rate 15 01/27/21 21:52 Blood Pressure 156/88 H 01/27/21 21:52 Pulse Oximetry 100 01/27/21 21:52 Temperature 37.0 C 01/27/21 21:52 Pulse Rate 98 01/27/21 23:00 Respiratory Rate 17 01/27/21 23:00 Blood Pressure 150/90 H 01/27/21 22:46 Pulse Oximetry 99 01/27/21 22:46 Medical Decision Making Vital Signs Vital Signs: Vital Signs Temperature 37.0 C 01/27/21 21:52 Pulse Rate 105 H 01/27/21 21:52 Respiratory Rate 15 01/27/21 21:52 Blood Pressure 156/88 H 01/27/21 21:52 Pulse Oximetry 100 01/27/21 21:52 Temperature 37.0 C 01/27/21 21:52 Pulse Rate 98 01/27/21 23:00 Respiratory Rate 17 01/27/21 23:00 Bloo
[2021-01-28] VITALS (44 sets, daily range): BP systolic 113–164; BP diastolic 56–109; PULSE 85–102; RESP 9–21; TEMP 36.1–36.9; O2SAT 97–100; BMI 30.1
--- NOTE | 2021-01-28 00:04 | ED.GENADULT ---
HPI - General Adult General Chief complaint: Abdominal Pain Stated complaint: not feeling well Time Seen by Provider: 01/27/21 22:18 History of Present Illness HPI narrative: Patient is a 55-year-old female presents the emergency department with chief complaint of generalized malaise. Patient reports she has history of MS and was recently in the hospital after she had a drain placed in her gallbladder. The patient reports that she has had a headache has not been feeling well reports that she is concerned that she may have a UTI patient states that her MS has been getting progressively worse. Related Data Home Medications Medication Instructions Recorded Confirmed Restasis 1 drp OPHTHALMIC (EYE) Q12H 03/30/19 01/04/21 cetirizine 5 mg PO DAILY 03/30/19 01/04/21 gabapentin 300 mg PO DAILY 03/30/19 01/04/21 polyethylene glycol 3350 [Miralax] 17 g PO EVERY OTHER DAY 03/30/19 01/04/21 lamotrigine 25 mg tablet 25 mg PO DAILY tablet 05/22/19 01/04/21 baclofen 20 mg PO 0800 01/04/21 01/04/21 baclofen 30 mg PO HS 01/04/21 01/04/21 gabapentin 900 mg PO HS 01/04/21 01/04/21 lidocaine 2 patch TRANSDERMAL DAILY 01/04/21 01/04/21 Allergies Allergy/AdvReac Type Severity Reaction Status Date / Time Sulfa (Sulfonamide Allergy Mild Swelling Verified 01/27/21 22:10 Antibiotics) prochlorperazine Allergy Unknown Sweating Verified 01/27/21 22:10 lisinopril Allergy Unknown Verified 01/27/21 22:10 ibuprofen AdvReac Unknown Nausea Verified 01/27/21 22:10 Review of Systems Review of Systems: A 10 system review of systems was completed on the patient and is negative except for what is stated in the HPI. Nursing and ancillary documentation was reviewed. [facility] Past Medical History Medical History Abnormal CT scan, colon Anemia Asthma Bunion rt foot Cataract, right eye Clostridium difficile infection Contracture of toe rt foot Dilated pancreatic duct Ear infection Eczema Erosive gastritis Fibroids Fracture lt femur, lt tibia GERD (gastroesophageal reflux disease) Hyperlipidemia Hypertension Knee pain right knee after injury Methicillin resistant Staph aureus culture positive Multiple sclerosis Onychomycosis Pneumonia Pressure ulcer of coccygeal region Pulmonary embolism Seasonal allergies Suprapubic catheter UTI (urinary tract infection) Vitreous floater Left eye Wrist pain right Surgical History Surgical History H/O rotator cuff surgery rt H/O toe surgery History of bladder surgery History of mandibular surgery Hx of tubal ligation No significant past surgical history Family History Family History Sibling Heart disease Patient's sister is in good health Cerebrovascular accident Family history of cardiovascular disease Hypertension Father Family history of malignant neoplasm Hypertension Mother Type 2 diabetes mellitus Family history of arthritis Hypertension Son Alive and well Daughter Alive and well Grandparent Breast cancer Social History Social History Social History: Patient lives at home with her . Lifelong nonsmoker. She drinks 1-2 alcoholic drinks per month. No drug use. They do have 3 cats. She has 2 providers that help her 7 days a week for 10 hours a day. She is a full code. is listed as the person to notify. Smoking status: Never smoker Second hand tobacco smoke exposure: No Alcohol intake: never Drinks per week: 1 Substance use: never Substance use type: does not use Gender identity (if verbalized by the patient): Female Spiritual care concerns: No Agree to blood products: Yes Exam Narrative: GENERAL: Well-appearing, well-nourished, and in no acute distress. HEAD: Normocephali
[2021-01-28] MEDS: ONDANSETRON HCL ODT 4 MG TABLET PO (00:09)
[2021-01-28 00:13] LABS: Basophils Absolute Auto 0.1 K/mm3 (0.0-0.1); Basophils Percent Auto 0.5 % (0.2-1.2); Eosinophils Absolute Auto 0.2 K/mm3 (0-0.3); Eosinophils Percent Auto 1.9 % (0-4.4); Hematocrit 43.4 % (37.0-47.0); Hemoglobin 13.9 g/dL (12.0-15.0); Immature Granulocyte Absolute 0.02 K/mm3 (0.00-0.031); Immature Granulocyte Percent A 0.2 % (0-0.5); Lymphocytes Absolute Auto 1.69 K/mm3 (0.9-3.2); Lymphocytes Percent Auto 18.3 % (18.3-44.2); Mean Corpuscular Hemoglobin 30.2 pg (26-34); Mean Corpuscular Volume 94.1 fl (80-100); Monocytes Absolute Auto 0.7 K/mm3 (0.1-0.6); Monocytes Percent Auto 7.7 % (2.6-8.5); Neutrophils Absolute Auto 6.6 K/mm3 (1.3-6.7); Neutrophils Percent Auto 71.4 % (45.5-73.1); Platelet Count Result 287 k/mm3 (150-375); Red Blood Count 4.61 M/mm3 (4.2-5.4); Red Cell Distribution Width 12.7 % (11.5-14.5); White Blood Count 9.3 K/mm3 (4.5-10.0)
[2021-01-28 00:27] LABS: Add Urine Microscopic? YES; Appearance Urine Cloudy (Clear); Bacteria Urine Trace /hpf; Bilirubin Urine Negative (Negative); Calcium Oxalate Crystals Urine Present /hpf; Color Urine Yellow (Yellow); Glucose Urine UA Negative (Negative); Ketones Urine Negative (Negative); Leukocyte Esterase Ur 3+ LEU/UL (Negative); Mucus Urine Rare /lpf; Nitrate Urine Negative (Negative); Protein Urine 1+ mg/dL (Negative); Specific Grav Ur 1.013 (1.001-1.035); Squamous Epithelial Cell Urine Occasional /hpf (Few); Urobilinogen Urine Negative mg/dL (<2.0); WBC Urine 21-30 /hpf
[2021-01-28 00:28] LABS: Alanine Aminotransferase 175 U/L (4-35); Albumin Level 4.2 g/dL (3.5-5.1); Alkaline Phosphatase 189 U/L (38-126); Anion Gap 9 mmol/L (8-16); Aspartate Amino Transferase 75 U/L (14-36); Bilirubin,Total 0.3 mg/dL (0.2-1.3); Blood Urea Nitrogen 10 mg/dL (7-17); Calcium 9.9 mg/dL (8.4-10.2); Carbon Dioxide 30 mmol/L (22-30); Chloride 93 mmol/L (98-107); Estimated CRCL calculation 148 ml/min; Estimated Glomerular Filt Rate > 60; Glucose 120 mg/dL (65-110); Magnesium 1.8 mg/dL (1.6-2.3); Potassium 4.1 mmol/L (3.4-5.0); Sodium 132 mmol/L (137-145)
[2021-01-28] MEDS: MORPHINE SULFATE (*CRX) 4 MG/ML INJ IM (00:30)
[2021-01-28 00:32] LABS: Blood Urine Negative (Negative)
[2021-01-28 00:43] LABS: Troponin I < 0.012 ng/mL (0.000-0.034)
[2021-01-28] MEDS: SODIUM CHLORIDE 0.9% IV 1,000 ML 999 ML IV CONT (02:00)
[2021-01-28] MEDS: ONDANSETRON INJ 4 MG/2 ML VIAL 8 MG IV PUSH (02:06)
[2021-01-28] MEDS: MORPHINE SULFATE (*CRX) 4 MG/ML INJ IV PUSH (02:07)
[2021-01-28 02:09] LABS: Troponin I < 0.012 ng/mL (0.000-0.034)
--- NOTE | 2021-01-28 04:28 | PM.IMHP ---
H&P: HPI History of Present Illness Date/Time: 01/28/21 04:28 Chief Complaint: ?not feeling well? Narrative: 55-year-old female with past medical history of advanced multiple sclerosis, neurogenic bladder with suprapubic catheter placement, gastritis with recent EGD and placement of a gallbladder drain 01/13/2021 who presented back to the ER today due to not feeling well. The patient was discharged on 01/16/2021 after she had a cholecystostomy tube placed on 01/13/2021. She reports that on the she began developing increasing right upper quadrant abdominal pain inside her coli cystotomy tube. She also had associated nausea without actual vomiting. She had a fever between 99-100.1 that occurred right before she came to the ER on the . She also reports generalized malaise. She had a severe frontal ?head pain? that she does not qualify as a headache. She reported that the pain was severe without eliciting or relieving factors. Her had pain has improved. She had a CT scan of her head in the ER with which demonstrated no acute process. She had a CT of the abdomen pelvis which demonstrated decompressed gallbladder with appropriate positioning of cholecystotomy tube. She does have a chronic indwelling Gonzalez catheter is concerned that she may have a UTI. She denies any chest pain, cough, congestion. She is not vaccinated against COVID-19 and has not decided if she wants to have the COVID vaccine or not. She reports some drainage from her left eye that is mostly clear. She reports that her right eye is been actually itchy and slightly burning. Review of Systems Review of Systems: 12 systems were reviewed with pertinent positives and negatives per HPI. Except as documented in the HPI, all other systems were reviewed and are negative. [facility] Past Medical History Medical History (Updated 01/28/21 @ 08:08 by Adele Love DO) Anemia Asthma Bunion rt foot Cataract, right eye Chronic cholecystitis Status post cholecystostomy tube 01/09/2021 Clostridium difficile infection Contracture of toe rt foot Dilated pancreatic duct Ear infection Eczema Erosive gastritis Fibroids Fracture lt femur, lt tibia GERD (gastroesophageal reflux disease) Hyperlipidemia Hypertension Knee pain right knee after injury Methicillin resistant Staph aureus culture positive Multiple sclerosis Wheelchair-bound Onychomycosis Pneumonia Pressure ulcer of coccygeal region Pulmonary embolism Seasonal allergies UTI (urinary tract infection) Vitreous floater Left eye Wrist pain right Surgical History Surgical History (Updated 01/28/21 @ 04:37 by Adele Love DO) H/O rotator cuff surgery rt H/O toe surgery History of colonoscopy with polypectomy (10/2020) History of esophagogastroduodenoscopy (EGD) (10/2020) Hiatal hernia, gastritis, gastric retention History of mandibular surgery TMJ Hx of tubal ligation Suprapubic catheter (~2017) Family History Family History Sibling Heart disease Patient's sister is in good health Cerebrovascular accident Family history of cardiovascular disease Hypertension Father Family history of malignant neoplasm Hypertension Mother Type 2 diabetes mellitus Family history of arthritis Hypertension Son Alive and well Daughter Alive and well Grandparent Breast cancer Social History Social History Social History: Patient lives at home with her . Lifelong nonsmoker. She drinks 1-2 alcoholic drinks per month. No drug use. They do have 3 cats. She has 2 providers that help her 7 days a week for 10 hours a day. She is a full code. is listed as the person to notify. Smoking status: Never smoker Second hand tobacco smoke exposure: No Alcohol intake: unknown Drinks per week: 1 Substance use: never Substance use type: does not use Gender identity
--- NOTE | 2021-01-28 05:15 | ADMGEN ---
This patient, Hayley Eduardo, was admitted to Medical Room 243-01. Patient/family oriented to hospital policies and general routines including ID bracelet, bed and alarms, visiting hours, pain management, procedures, bathroom and other care routines, personal items, smoking policy, room service/diet, and visiting hours. Information on how to activate the Rapid Response Team has been discussed. Patient/Family are encouraged to report perceived risks to care and to ask questions if they do not understand what they are told or what they should do.
[2021-01-28] MEDS: SODIUM CHLORIDE 0.9% IV 1,000 ML 125 ML IV CONT ×2 (05:41→14:50)
[2021-01-28] MEDS: ONDANSETRON INJ 4 MG/2 ML VIAL IV PUSH ×3 (06:02→20:54)
[2021-01-28] MEDS: BACLOFEN 10 MG TABLET 20 MG PO (09:34)
[2021-01-28] MEDS: LIDOCAINE 5% PATCH 2 PATCH TRANSDERM (09:35)
[2021-01-28] MEDS: CARBAMAZEPINE XR 200 MG TAB.ER.12H PO ×2 (09:35→20:38)
[2021-01-28] MEDS: GABAPENTIN 300 MG CAPSULE PO (09:35)
[2021-01-28] MEDS: lamoTRIgine 25 MG TABLET PO (09:35)
[2021-01-28] MEDS: amLODIPine BESYLATE 5 MG TABLET 10 MG PO (09:35)
[2021-01-28] MEDS: cycloSPORINE 0.4 ML OPHTH SOLUTION 1 DROP EACH EYE ×2 (09:35→20:37)
[2021-01-28] MEDS: ATORVASTATIN 20 MG TABLET PO (09:35)
[2021-01-28] MEDS: LORATADINE 5 MG TABLET PO (09:36)
[2021-01-28] MEDS: polyethylene glycoL 3350 17 GM POWD.PACK PO (09:36)
[2021-01-28] MEDS: LOSARTAN POTASSIUM 50 MG TABLET PO (09:36)
[2021-01-28] MEDS: PANTOPRAZOLE 40 MG TABLET PO ×2 (09:36→20:39)
[2021-01-28] MEDS: TOLNAFTATE 1% POWDER 45 GM BTL 1 APPLIC TOPICAL ×3 (09:36→16:15)
[2021-01-28] MEDS: POLYMYXIN/TRIMETHOPRIM OPHTH 10 ML DROPS 2 DROP LEFT EYE ×2 (09:36→20:37)
--- NOTE | 2021-01-28 13:40 | PM.IMPN ---
Progress Note: A&P Assessment and Plan (1) Bacteriuria with pyuria: Code(s): R82.71 - Bacteriuria; R82.81 - Pyuria Status: Acute (2) Generalized weakness: Code(s): R53.1 - Weakness Status: Acute (3) Nausea & vomiting: Qualifiers: Vomiting Intractability: non-intractable Vomiting type: unspecified Qualified Code(s): R11.2 - Nausea with vomiting, unspecified Code(s): R11.2 - Nausea with vomiting, unspecified Status: Acute (4) Cholecystitis without calculus: Code(s): K81.9 - Cholecystitis, unspecified Status: Acute (5) Elevated transaminase level: Code(s): R74.01 - Elevation of levels of liver transaminase levels Status: Acute (6) Irritation of both eyes: Code(s): H57.89 - Other specified disorders of eye and adnexa Status: Acute Additional Plan # Generalized weakness unclear etiology however underlying infection suspected. Liver enzymes are more elevated as compared to [address] abdomen unremarkable. Fedder cholecystostomy tube output sent for culture. Follow-up blood culture # UTI placed on Rocephin urine culture with Gram-negative bacilli await sensitivity and identification # Elevated liver enzymes recheck today # Neurogenic bladder status post Chronic suprapubic catheter catheter exchanged last admission 01/05 if not exchanged will be due soon since urine culture growing more than 100,000 gram-negative bacilli will have it exchanged if not done this admission # History of multiple sclerosis # Allergy conjunctivitis # Non ambulatory status DC IV fluid. Taking oral and tolerating it okay okay Subjective Date/time seen: 01/28/21 13:40 Interval history: HPI:55-year-old female with past medical history of advanced multiple sclerosis, neurogenic bladder with suprapubic catheter placement, gastritis with recent EGD and placement of a gallbladder drain 01/13/2021 who presented back to the ER today due to not feeling well. The patient was discharged on 01/16/2021 after she had a cholecystostomy tube placed on 01/13/2021. She reports that on the she began developing increasing right upper quadrant abdominal pain inside her cholecystotomy tube. She also had associated nausea without actual vomiting. She had a fever between 99-100.1 that occurred right before she came to the ER on the 10th. She also reports generalized malaise. She had a severe frontal ?head pain? that she does not qualify as a headache. She reported that the pain was severe without eliciting or relieving factors. Her had pain has improved. She had a CT scan of her head in the ER with which demonstrated no acute process. She had a CT of the abdomen pelvis which demonstrated decompressed gallbladder with appropriate positioning of cholecystotomy tube. She does have a chronic indwelling Gonzalez catheter is concerned that she may have a UTI. She denies any chest pain, cough, congestion. She is not vaccinated against COVID-19 and has not decided if she wants to have the COVID vaccine or not. She reports some drainage from her left eye that is mostly clear. She reports that her right eye is been actually itchy and slightly burning. Interval history: Feels better today denies any ongoing issue except for some nausea. No fever no chills abdomen is a doing okay discussed with nurse Review of Systems Review of Systems: All systems reviewed & are unremarkable except as noted in HPI and below (HPI) Exam Narrative: General: Chronically debilitated, not in acute distress, obese HEENT: Mucous membranes are tacky, no oral pharyngeal erythema Respiratory: Clear to auscultation bilaterally, decreased breath sounds at the bases Cardiovascular: Regular rate, regular rhythm, 2+ bilateral radial pulses Gastrointestinal: Soft, mild tender upper abdominal area, positive bowel sounds, cholecystostomy tube right upper quadrant with small amount of bilious drainage in the collection bag Ski
--- NOTE | 2021-01-28 16:40 | PC.NURSE ---
Remote Sensing Technologist notified Dr. Lyles the changing of suprapubic catheter needs to be done by provider as RN is not allowed per charge nurse and this gag writer searched Policy tech and there is no policy available for catheter to be changed by RN
[2021-01-28 18:54] LABS: Alanine Aminotransferase 191 U/L (4-35); Alkaline Phosphatase 194 U/L (38-126); Aspartate Amino Transferase 104 U/L (14-36); Bilirubin,Total 0.3 mg/dL (0.2-1.3)
[2021-01-28] MEDS: OLOPATADINE 0.1% OPHTH SOLN 5 ML BTL 1 DROP EACH EYE (20:37)
[2021-01-28] MEDS: TRIAMCINOLONE ACET 0.1% CREAM 15 GM TUBE 1 APPLIC TOPICAL (20:38)
[2021-01-28] MEDS: BACLOFEN 10 MG TABLET 30 MG PO (20:39)
[2021-01-28] MEDS: GABAPENTIN 300 MG CAPSULE 900 MG PO (20:39)
[2021-01-28] MEDS: diazePAM (*CRX) 5 MG TABLET 10 MG PO (20:45)
[2021-01-28] MEDS: ALBUTEROL SULFATE NEB 2.5 MG/0.5 ML INH INHALATION (22:12)
[2021-01-29] VITALS (7 sets, daily range): BP systolic 123–144; BP diastolic 61–66; PULSE 74–95; RESP 18–21; TEMP 36.1–36.7; O2SAT 94–100
[2021-01-29 05:34] LABS: Hematocrit 41.2 % (37.0-47.0); Hemoglobin 12.6 g/dL (12.0-15.0); Mean Corpuscular HGB Conc 30.6 g/dl (32-36); Mean Corpuscular Hemoglobin 29.9 pg (26-34); Mean Corpuscular Volume 97.6 fl (80-100); Mean Platelet Volume 11.2 fl (7.4-10.4); Platelet Count Result 184 k/mm3 (150-375); Red Blood Count 4.22 M/mm3 (4.2-5.4); Red Cell Distribution Width 13.1 % (11.5-14.5)
[2021-01-29 05:52] LABS: Alanine Aminotransferase 174 U/L (4-35); Albumin Level 3.8 g/dL (3.5-5.1); Alkaline Phosphatase 158 U/L (38-126); Anion Gap 9 mmol/L (8-16); Aspartate Amino Transferase 76 U/L (14-36); Bilirubin,Total 0.4 mg/dL (0.2-1.3); Blood Urea Nitrogen 9 mg/dL (7-17); Calcium 8.8 mg/dL (8.4-10.2); Carbon Dioxide 27 mmol/L (22-30); Chloride 102 mmol/L (98-107); Estimated CRCL calculation 144 ml/min; Estimated Glomerular Filt Rate > 60; Glucose 77 mg/dL (65-110); Potassium 4.2 mmol/L (3.4-5.0); Sodium 138 mmol/L (137-145)
[2021-01-29] MEDS: ALBUTEROL SULFATE NEB 2.5 MG/0.5 ML INH INHALATION ×2 (07:46→22:07)
[2021-01-29] MEDS: amLODIPine BESYLATE 5 MG TABLET 10 MG PO (08:23)
[2021-01-29] MEDS: LOSARTAN POTASSIUM 50 MG TABLET PO (08:23)
[2021-01-29] MEDS: PANTOPRAZOLE 40 MG TABLET PO ×2 (08:23→20:52)
[2021-01-29] MEDS: ATORVASTATIN 20 MG TABLET PO (08:23)
[2021-01-29] MEDS: GABAPENTIN 300 MG CAPSULE PO ×2 (08:23→21:24)
[2021-01-29] MEDS: LORATADINE 5 MG TABLET PO (08:23)
[2021-01-29] MEDS: lamoTRIgine 25 MG TABLET PO (08:23)
[2021-01-29] MEDS: CARBAMAZEPINE XR 200 MG TAB.ER.12H PO ×2 (08:23→20:52)
[2021-01-29] MEDS: LIDOCAINE 5% PATCH 2 PATCH TRANSDERM (08:24)
[2021-01-29] MEDS: POLYMYXIN/TRIMETHOPRIM OPHTH 10 ML DROPS 2 DROP LEFT EYE ×2 (08:24→20:52)
[2021-01-29] MEDS: OLOPATADINE 0.1% OPHTH SOLN 5 ML BTL 1 DROP EACH EYE ×2 (08:24→20:52)
[2021-01-29] MEDS: TRIAMCINOLONE ACET 0.1% CREAM 15 GM TUBE 1 APPLIC TOPICAL (08:25)
[2021-01-29] MEDS: TOLNAFTATE 1% POWDER 45 GM BTL 1 APPLIC TOPICAL ×2 (08:25→17:03)
[2021-01-29] MEDS: cycloSPORINE 0.4 ML OPHTH SOLUTION 1 DROP EACH EYE ×2 (08:25→20:52)
--- NOTE | 2021-01-29 09:23 | WPDURCON ---
Assessment and Plan Assessment and plan (1) UTI (urinary tract infection): Qualifiers: Hematuria presence: without hematuria Urinary tract infection type: acute cystitis Qualified Code(s): N30.00 - Acute cystitis without hematuria Code(s): N39.0 - Urinary tract infection, site not specified Status: Acute Assessment and Plan: on abx -culture pending (2) Neurogenic bladder: Code(s): N31.9 - Neuromuscular dysfunction of bladder, unspecified Status: Chronic Assessment and Plan: 20 Fr SP tube changed, change q monthly -followup with her primary urologist for routine surveillance of bladder for bladder ca given chronic indwelling foreign body Urology Consult Note HPI Date Seen: 01/29/21 Requesting Physician: Adele Love DO Primary Care Provider: Javan Young DO Consult Narrative Narrative: Hayley Eduardo is a 55 year old female with NGB managed with chronic SP tube who presnet with UTI. Her primary urologist is Dr Moralez at [facility]. She gets her SP tube changed monthly by home health. She denies any bleeding form SP site. [facility] Past Medical History Medical History (Updated 01/28/21 @ 08:08 by Adele Love DO) Anemia Asthma Bunion rt foot Cataract, right eye Chronic cholecystitis Status post cholecystostomy tube 01/09/2021 Clostridium difficile infection Contracture of toe rt foot Dilated pancreatic duct Ear infection Eczema Erosive gastritis Fibroids Fracture lt femur, lt tibia GERD (gastroesophageal reflux disease) Hyperlipidemia Hypertension Knee pain right knee after injury Methicillin resistant Staph aureus culture positive Multiple sclerosis Wheelchair-bound Onychomycosis Pneumonia Pressure ulcer of coccygeal region Pulmonary embolism Seasonal allergies UTI (urinary tract infection) Vitreous floater Left eye Wrist pain right Surgical History Surgical History (Updated 01/28/21 @ 04:37 by Adele Love DO) H/O rotator cuff surgery rt H/O toe surgery History of colonoscopy with polypectomy (10/2020) History of esophagogastroduodenoscopy (EGD) (10/2020) Hiatal hernia, gastritis, gastric retention History of mandibular surgery TMJ Hx of tubal ligation Suprapubic catheter (~2017) Family History Family History Sibling Heart disease Patient's sister is in good health Cerebrovascular accident Family history of cardiovascular disease Hypertension Father Family history of malignant neoplasm Hypertension Mother Type 2 diabetes mellitus Family history of arthritis Hypertension Son Alive and well Daughter Alive and well Grandparent Breast cancer Social History Social History Social History: Patient lives at home with her . Lifelong nonsmoker. She drinks 1-2 alcoholic drinks per month. No drug use. They do have 3 cats. She has 2 providers that help her 7 days a week for 10 hours a day. She is a full code. is listed as the person to notify. Smoking status: Never smoker Second hand tobacco smoke exposure: No Alcohol intake: unknown Drinks per week: 1 Substance use: never Substance use type: does not use Gender identity (if verbalized by the patient): Female Spiritual care concerns: No Agree to blood products: Yes Meds Home Medications and Allergies Home Medications Medication Instructions Recorded Confirmed Type Restasis 1 drp OPHTHALMIC (EYE) Q12H 03/30/19 01/28/21 History cetirizine 5 mg PO DAILY 03/30/19 01/28/21 History gabapentin 300 mg PO DAILY 03/30/19 01/28/21 History polyethylene glycol 3350 [Miralax] 17 g PO EVERY OTHER DAY 03/30/19 01/28/21 History lamotrigine 25 mg tablet 25 mg PO DAILY tablet 05/22/19 01/28/21 History diazepam 10 mg tablet 10 mg PO HS PRN #90 tablet 08/24/19 01/28/21 Rx triamcinolone acetonide 0.1
[2021-01-29] MEDS: BACLOFEN 10 MG TABLET 20 MG PO (09:28)
--- NOTE | 2021-01-29 09:58 | PM.IMPN ---
Progress Note: A&P Assessment and Plan (1) Bacteriuria with pyuria: Code(s): R82.71 - Bacteriuria; R82.81 - Pyuria Status: Acute (2) Generalized weakness: Code(s): R53.1 - Weakness Status: Acute (3) Nausea & vomiting: Qualifiers: Vomiting Intractability: non-intractable Vomiting type: unspecified Qualified Code(s): R11.2 - Nausea with vomiting, unspecified Code(s): R11.2 - Nausea with vomiting, unspecified Status: Acute (4) Cholecystitis without calculus: Code(s): K81.9 - Cholecystitis, unspecified Status: Acute (5) Elevated transaminase level: Code(s): R74.01 - Elevation of levels of liver transaminase levels Status: Acute (6) Irritation of both eyes: Code(s): H57.89 - Other specified disorders of eye and adnexa Status: Acute Additional Plan # Generalized weakness unclear etiology however underlying infection suspected. Liver enzymes are more elevated as compared to [address] abdomen unremarkable. Fedder cholecystostomy tube output sent for culture. Follow-up blood culture. Liver enzymes improving # UTI placed on Rocephin urine culture with Gram-negative bacilli await sensitivity and identification # Elevated liver enzymes recheck liver enzymes stabilized and improving # Neurogenic bladder status post Chronic suprapubic catheter catheter exchanged last admission 01/05 if not exchanged will be due soon since urine culture growing more than 100,000 gram-negative bacilli will have it exchanged if not done this admission. Urology consulted to get it exchanged # History of multiple sclerosis # Allergy conjunctivitis # Non ambulatory status Await identification of urine culture Subjective Date/time seen: 01/29/21 09:58 Interval history: HPI:55-year-old female with past medical history of advanced multiple sclerosis, neurogenic bladder with suprapubic catheter placement, gastritis with recent EGD and placement of a gallbladder drain 01/13/2021 who presented back to the ER today due to not feeling well. The patient was discharged on 01/16/2021 after she had a cholecystostomy tube placed on 01/13/2021. She reports that on the she began developing increasing right upper quadrant abdominal pain inside her cholecystotomy tube. She also had associated nausea without actual vomiting. She had a fever between 99-100.1 that occurred right before she came to the ER on the 10th. She also reports generalized malaise. She had a severe frontal ?head pain? that she does not qualify as a headache. She reported that the pain was severe without eliciting or relieving factors. Her had pain has improved. She had a CT scan of her head in the ER with which demonstrated no acute process. She had a CT of the abdomen pelvis which demonstrated decompressed gallbladder with appropriate positioning of cholecystotomy tube. She does have a chronic indwelling Gonzalez catheter is concerned that she may have a UTI. She denies any chest pain, cough, congestion. She is not vaccinated against COVID-19 and has not decided if she wants to have the COVID vaccine or not. She reports some drainage from her left eye that is mostly clear. She reports that her right eye is been actually itchy and slightly burning. Interval history:Feeling better some nausea which is improving. Abdomen is sore but is not painful as he used to. She is supposed to follow-up with Dr. santos in week to get the cholecystostomy tube removed. No fever chills patient tolerating diet Review of Systems Review of Systems: All systems reviewed & are unremarkable except as noted in HPI and below (HPI) Exam Narrative: General: Chronically debilitated, not in acute distress, obese HEENT: Mucous membranes are tacky, no oral pharyngeal erythema Respiratory: Clear to auscultation bilaterally, decreased breath sounds at the bases Cardiovascular: Regular rate, regular rhythm, 2+ bilateral radial pulses Gastro
--- NOTE | 2021-01-29 10:58 | PM.OP ---
Procedure Note - Brief Procedure Note - Brief Date of procedure: 01/29/21 Pre-op diagnosis: nausea and vomiting, UTI Neurogenic bladder, chronic SP tube Post-op diagnosis: same Procedure performed: change of SP tube Description of procedure: After obtaining verbal consent from the patient, the old SP tube was removed, 5 cc was in the balloon, the SP site was prepped with Betadine, and with sterile technique, a 20 Fr SP tube was replaced, good return of urine was obtained and 5 cc of sterile water was placed in the balloon. She tolerated the procedure well, no complications. Implants: 20 Fr SP tube with 5 cc in balloon Anesthesia: none Surgeon: Manoj Tilley MD Pathology: none sent Complications: No immediate complications
[2021-01-29] MEDS: BACLOFEN 10 MG TABLET 30 MG PO (20:52)
[2021-01-29] MEDS: MONTELUKAST SODIUM 10 MG TABLET PO (21:55)
[2021-01-30] VITALS (10 sets, daily range): BP systolic 109–130; BP diastolic 62–70; PULSE 70–91; RESP 16–20; TEMP 36.1–36.4; O2SAT 94–100
[2021-01-30] MEDS: diazePAM (*CRX) 5 MG TABLET 10 MG PO ×2 (00:16→22:25)
[2021-01-30 07:44] LABS: Basophils Percent Auto 0.5 % (0.2-1.2); Eosinophils Absolute Auto 0.2 K/mm3 (0-0.3); Eosinophils Percent Auto 3.3 % (0-4.4); Hematocrit 39.5 % (37.0-47.0); Hemoglobin 12.5 g/dL (12.0-15.0); Immature Granulocyte Absolute 0.01 K/mm3 (0.00-0.031); Immature Granulocyte Percent A 0.1 % (0-0.5); Lymphocytes Absolute Auto 1.64 K/mm3 (0.9-3.2); Lymphocytes Percent Auto 22.5 % (18.3-44.2); Mean Corpuscular HGB Conc 31.6 g/dl (32-36); Mean Corpuscular Hemoglobin 30.5 pg (26-34); Mean Corpuscular Volume 96.3 fl (80-100); Mean Platelet Volume 9.9 fl (7.4-10.4); Monocytes Absolute Auto 0.6 K/mm3 (0.1-0.6); Monocytes Percent Auto 8.5 % (2.6-8.5); Neutrophils Absolute Auto 4.8 K/mm3 (1.3-6.7); Neutrophils Percent Auto 65.1 % (45.5-73.1); Platelet Count Result 239 k/mm3 (150-375); Red Cell Distribution Width 13.1 % (11.5-14.5); White Blood Count 7.3 K/mm3 (4.5-10.0)
[2021-01-30 07:54] LABS: Alanine Aminotransferase 122 U/L (4-35); Albumin Level 3.8 g/dL (3.5-5.1); Alkaline Phosphatase 154 U/L (38-126); Anion Gap 7 mmol/L (8-16); Aspartate Amino Transferase 43 U/L (14-36); Bilirubin,Total 0.2 mg/dL (0.2-1.3); Blood Urea Nitrogen 8 mg/dL (7-17); Calcium 8.7 mg/dL (8.4-10.2); Carbon Dioxide 29 mmol/L (22-30); Chloride 100 mmol/L (98-107); Estimated CRCL calculation 144 ml/min; Estimated Glomerular Filt Rate > 60; Glucose 94 mg/dL (65-110); Potassium 3.7 mmol/L (3.4-5.0); Sodium 136 mmol/L (137-145)
[2021-01-30] MEDS: ONDANSETRON INJ 4 MG/2 ML VIAL IV PUSH (09:03)
[2021-01-30] MEDS: ALBUTEROL SULFATE NEB 2.5 MG/0.5 ML INH INHALATION ×2 (10:04→20:02)
[2021-01-30] MEDS: CARBAMAZEPINE XR 200 MG TAB.ER.12H PO ×2 (10:32→20:20)
[2021-01-30] MEDS: BACLOFEN 10 MG TABLET 20 MG PO (10:32)
[2021-01-30] MEDS: amLODIPine BESYLATE 5 MG TABLET 10 MG PO (10:32)
[2021-01-30] MEDS: NABUMETONE 500 MG TABLET PO ×2 (10:32→16:32)
[2021-01-30] MEDS: ATORVASTATIN 20 MG TABLET PO (10:32)
[2021-01-30] MEDS: GABAPENTIN 300 MG CAPSULE PO ×2 (10:33→20:20)
[2021-01-30] MEDS: lamoTRIgine 25 MG TABLET PO (10:33)
[2021-01-30] MEDS: LIDOCAINE 5% PATCH 2 PATCH TRANSDERM (10:33)
[2021-01-30] MEDS: cycloSPORINE 0.4 ML OPHTH SOLUTION 1 DROP EACH EYE ×2 (10:33→20:17)
[2021-01-30] MEDS: LORATADINE 5 MG TABLET PO (10:33)
[2021-01-30] MEDS: LOSARTAN POTASSIUM 50 MG TABLET PO (10:34)
[2021-01-30] MEDS: OLOPATADINE 0.1% OPHTH SOLN 5 ML BTL 1 DROP EACH EYE ×2 (10:35→20:17)
[2021-01-30] MEDS: polyethylene glycoL 3350 17 GM POWD.PACK PO (10:35)
[2021-01-30] MEDS: POLYMYXIN/TRIMETHOPRIM OPHTH 10 ML DROPS 2 DROP LEFT EYE ×2 (10:35→20:17)
[2021-01-30] MEDS: PANTOPRAZOLE 40 MG TABLET PO ×2 (10:35→20:21)
[2021-01-30] MEDS: TOLNAFTATE 1% POWDER 45 GM BTL 1 APPLIC TOPICAL ×2 (10:35→16:33)
--- NOTE | 2021-01-30 10:50 | ECG_ITS ---
Measurements Intervals [place] Rate: 84 P: 76 VA: 176 QRS: 18 QRSD: 94 T: 8 QT: 386 QTc: 458 Interpretive Statements SINUS RHYTHM DELAYED PRECORDIAL R/S TRANSITION INFERIOR INFARCT, AGE INDETERMINATE BASELINE ARTIFACT- I, II, AVR ABNORMAL ECG Electronically Signed On 01-30-2021 11:21:20 CDT by Chucky Lassiter D.O.
[2021-01-30 11:37] LABS: Troponin I < 0.012 ng/mL (0.000-0.034)
[2021-01-30] MEDS: NITROGLYCERIN SL 0.4 MG TABLET SUBLINGUAL (12:54)
--- NOTE | 2021-01-30 13:12 | PM.IMPN ---
Progress Note: A&P Assessment and Plan (1) Bacteriuria with pyuria: Code(s): R82.71 - Bacteriuria; R82.81 - Pyuria Status: Acute (2) Generalized weakness: Code(s): R53.1 - Weakness Status: Acute (3) Nausea & vomiting: Qualifiers: Vomiting Intractability: non-intractable Vomiting type: unspecified Qualified Code(s): R11.2 - Nausea with vomiting, unspecified Code(s): R11.2 - Nausea with vomiting, unspecified Status: Acute (4) Cholecystitis without calculus: Code(s): K81.9 - Cholecystitis, unspecified Status: Acute (5) Elevated transaminase level: Code(s): R74.01 - Elevation of levels of liver transaminase levels Status: Acute (6) Irritation of both eyes: Code(s): H57.89 - Other specified disorders of eye and adnexa Status: Acute (7) Chest pain: Code(s): R07.9 - Chest pain, unspecified Status: Acute Additional Plan # Generalized weakness unclear etiology however underlying infection suspected. Liver enzymes are more elevated as compared to [address] abdomen unremarkable. Fedder cholecystostomy tube output sent for culture. Follow-up blood culture. Liver enzymes improving # UTI placed on Rocephin urine culture with Pseudomonas. On ceftriaxone which will be discontinued and was switched to cefepime. Levaquin and Cipro is resistant # Elevated liver enzymes recheck liver enzymes stabilized and improving # Neurogenic bladder status post Chronic suprapubic catheter catheter exchanged last admission 01/05 if not exchanged will be due soon since urine culture growing more than 100,000 gram-negative bacilli will have it exchanged if not done this admission. Urology consulted and was exchanged 01/29/2021 # History of multiple sclerosis # Allergy conjunctivitis # Non ambulatory status # chest pain: Likely musculoskeletal/GERD related. Try Tums. Give a dose of morphine. EKG done with no acute ST-T changes. Troponin negative will continue to monitor vital stable no prior history of coronary artery disease. Pseudomonas growing in the urine resistant to Cipro/Levaquin will need IV antibiotics at discharge. Care coordination consultation for home infusion referral. To cefepime at discharge for at least 7-10 days Subjective Date/time seen: 01/30/21 13:12 Interval history: HPI:55-year-old female with past medical history of advanced multiple sclerosis, neurogenic bladder with suprapubic catheter placement, gastritis with recent EGD and placement of a gallbladder drain 01/13/2021 who presented back to the ER today due to not feeling well. The patient was discharged on 01/16/2021 after she had a cholecystostomy tube placed on 01/13/2021. She reports that on the she began developing increasing right upper quadrant abdominal pain inside her cholecystotomy tube. She also had associated nausea without actual vomiting. She had a fever between 99-100.1 that occurred right before she came to the ER on the . She also reports generalized malaise. She had a severe frontal ?head pain? that she does not qualify as a headache. She reported that the pain was severe without eliciting or relieving factors. Her had pain has improved. She had a CT scan of her head in the ER with which demonstrated no acute process. She had a CT of the abdomen pelvis which demonstrated decompressed gallbladder with appropriate positioning of cholecystotomy tube. She does have a chronic indwelling Gonzalez catheter is concerned that she may have a UTI. She denies any chest pain, cough, congestion. She is not vaccinated against COVID-19 and has not decided if she wants to have the COVID vaccine or not. She reports some drainage from her left eye that is mostly clear. She reports that her right eye is been actually itchy and slightly burning. Interval history: She complains of chest pain in the retrosternal area since this morning. Rates it about 5-6/10
[2021-01-30] MEDS: MORPHINE SULFATE (*CRX) 2 MG/ML INJ 1 MG IV PUSH (13:48)
[2021-01-30] MEDS: DICLOFENAC SODIUM 1% 100 GM GEL (*BKC) 1 APPLIC TOPICAL ×2 (16:33→20:17)
[2021-01-30 17:48] LABS: Troponin I < 0.012 ng/mL (0.000-0.034)
[2021-01-30] MEDS: MONTELUKAST SODIUM 10 MG TABLET PO (20:20)
[2021-01-30] MEDS: BACLOFEN 10 MG TABLET 30 MG PO (20:20)
[2021-01-31 05:49] VITALS: BP 130/62; PULSE 69; RESP 16; TEMP 36.1; O2SAT 100
[2021-01-31] MEDS: ONDANSETRON INJ 4 MG/2 ML VIAL IV PUSH ×3 (06:25→21:17)
[2021-01-31 09:46] VITALS: BP 132/68
[2021-01-31] MEDS: amLODIPine BESYLATE 5 MG TABLET 10 MG PO (09:48)
[2021-01-31] MEDS: CARBAMAZEPINE XR 200 MG TAB.ER.12H PO ×2 (09:48→21:36)
[2021-01-31] MEDS: BACLOFEN 10 MG TABLET 20 MG PO (09:48)
[2021-01-31] MEDS: NABUMETONE 500 MG TABLET PO ×2 (09:48→17:36)
[2021-01-31] MEDS: ATORVASTATIN 20 MG TABLET PO (09:48)
[2021-01-31] MEDS: lamoTRIgine 25 MG TABLET PO (09:49)
[2021-01-31] MEDS: LORATADINE 5 MG TABLET PO (09:49)
[2021-01-31] MEDS: GABAPENTIN 300 MG CAPSULE PO ×2 (09:49→21:35)
[2021-01-31] MEDS: PANTOPRAZOLE 40 MG TABLET PO ×2 (09:49→21:35)
[2021-01-31] MEDS: LOSARTAN POTASSIUM 50 MG TABLET PO (09:50)
[2021-01-31] MEDS: LIDOCAINE 5% PATCH 2 PATCH TRANSDERM (09:50)
[2021-01-31] MEDS: polyethylene glycoL 3350 17 GM POWD.PACK PO (09:50)
[2021-01-31] MEDS: POLYMYXIN/TRIMETHOPRIM OPHTH 10 ML DROPS 2 DROP LEFT EYE ×2 (09:51→21:37)
[2021-01-31] MEDS: OLOPATADINE 0.1% OPHTH SOLN 5 ML BTL 1 DROP EACH EYE ×2 (09:51→21:37)
[2021-01-31] MEDS: DICLOFENAC SODIUM 1% 100 GM GEL (*BKC) 1 APPLIC TOPICAL ×4 (09:51→21:37)
[2021-01-31] MEDS: TOLNAFTATE 1% POWDER 45 GM BTL 1 APPLIC TOPICAL ×3 (09:51→17:37)
[2021-01-31] MEDS: cycloSPORINE 0.4 ML OPHTH SOLUTION 1 DROP EACH EYE ×2 (09:56→21:36)
--- NOTE | 2021-01-31 10:05 | PCRCNOTE ---
Window of time for administration has passed. See next scheduled administration.
--- NOTE | 2021-01-31 13:28 | P.CDI_ITS ---
CDI Query Clarification Request -UTI has been documented -Chronic suprapubic catheter documented Please clarify if the UTI is: * Due to/associated with the chronic indwelling suprapubic catheter * Not due to/associated with the chronic indwelling suprapubic catheter * Unable to determine <Megan Burdick RN - Last Filed: 01/31/21 13:32> Clarified Diagnosis (1) Bacteriuria with pyuria: Code(s): R82.71 - Bacteriuria; R82.81 - Pyuria <Megan Burdick RN - Last Filed: 01/31/21 13:32> Status: Acute <Megan Burdick RN - Last Filed: 01/31/21 13:32> Assessment and Plan: Due to/associated with the chronic indwelling suprapubic catheter, seen by Dr. Blanco stated not true infection most likely clonization <Tommie Smith MD - Last Filed: 02/20/21 17:38>
--- NOTE | 2021-01-31 13:41 | PM.IMPN ---
Progress Note: A&P Assessment and Plan (1) Bacteriuria with pyuria: Code(s): R82.71 - Bacteriuria; R82.81 - Pyuria Status: Acute (2) Generalized weakness: Code(s): R53.1 - Weakness Status: Acute (3) Nausea & vomiting: Qualifiers: Vomiting Intractability: non-intractable Vomiting type: unspecified Qualified Code(s): R11.2 - Nausea with vomiting, unspecified Code(s): R11.2 - Nausea with vomiting, unspecified Status: Acute (4) Cholecystitis without calculus: Code(s): K81.9 - Cholecystitis, unspecified Status: Acute (5) Elevated transaminase level: Code(s): R74.01 - Elevation of levels of liver transaminase levels Status: Acute (6) Irritation of both eyes: Code(s): H57.89 - Other specified disorders of eye and adnexa Status: Acute (7) Chest pain: Code(s): R07.9 - Chest pain, unspecified Status: Acute Additional Plan # Generalized weakness unclear etiology however underlying infection suspected. Liver enzymes are more elevated as compared to [address] abdomen unremarkable. Fedder cholecystostomy tube output sent for culture. Follow-up blood culture. Liver enzymes improving # UTI placed on Rocephin urine culture with Pseudomonas. On ceftriaxone which will be discontinued and was switched to cefepime. Levaquin and Cipro is resistant # Elevated liver enzymes recheck liver enzymes stabilized and improving # Neurogenic bladder status post Chronic suprapubic catheter catheter exchanged last admission 01/05 if not exchanged will be due soon since urine culture growing more than 100,000 gram-negative bacilli will have it exchanged if not done this admission. Urology consulted and was exchanged 01/29/2021 # History of multiple sclerosis # Allergy conjunctivitis # Non ambulatory status # chest pain: Likely musculoskeletal/GERD related. Try Tums. Give a dose of morphine. EKG done with no acute ST-T changes. Troponin negative will continue to monitor vital stable no prior history of coronary artery disease. Interval history: She complains of chest pain in the retrosternal area since this morning. Rates it about 5-6/10 in intensity. Feels like tightness. Chest is also sore when pressed. No exacerbating or alleviating factor. EKG done with no acute ST-T changes. Troponin negative no prior history of cor coronary artery disease no fever chills tolerating diet. 01/31/21 Pseudomonas growing in the urine resistant to Cipro/Levaquin, Currently treated with Cefepime, will need IV antibiotics at discharge. Care coordination consultation for home infusion referral. will need cefepime at discharge for at least 7-10 days. today patient c/o abdominal pain, no BM fo 3 days and not passing any gas, will do KUB to further evaluate her further recommendation to follow Subjective Date/time seen: 01/31/21 13:41 Interval history: HPI:55-year-old female with past medical history of advanced multiple sclerosis, neurogenic bladder with suprapubic catheter placement, gastritis with recent EGD and placement of a gallbladder drain 01/13/2021 who presented back to the ER today due to not feeling well. The patient was discharged on 01/16/2021 after she had a cholecystostomy tube placed on 01/13/2021. She reports that on the she began developing increasing right upper quadrant abdominal pain inside her cholecystotomy tube. She also had associated nausea without actual vomiting. She had a fever between 99-100.1 that occurred right before she came to the ER on the . She also reports generalized malaise. She had a severe frontal ?head pain? that she does not qualify as a headache. She reported that the pain was severe without eliciting or relieving factors. Her had pain has improved. She had a CT scan of her head in the ER with which demonstrated no acute process. She had a CT of the abdomen pelvis which demonstrated decompressed gallbla
[2021-01-31 14:00] VITALS: BP 123/68; PULSE 73; RESP 16; TEMP 36.6; O2SAT 98
--- NOTE | 2021-01-31 15:23 | PC.NURSE ---
On 01/31/21, the student, Ailin Rushing, provided care and completed [facility] documentation on this patient. I have reviewed the student's documentation and agree with the findings.
[2021-01-31] MEDS: BACLOFEN 10 MG TABLET 30 MG PO (21:35)
[2021-01-31] MEDS: MONTELUKAST SODIUM 10 MG TABLET PO (21:35)
[2021-01-31] MEDS: diazePAM (*CRX) 5 MG TABLET 10 MG PO (21:36)
[2021-01-31] MEDS: ALBUTEROL SULFATE NEB 2.5 MG/0.5 ML INH INHALATION (21:40)
[2021-01-31 21:44] VITALS: PULSE 69; RESP 20
[2021-01-31 21:53] VITALS: PULSE 74; RESP 18
[2021-01-31 22:00] VITALS: BP 122/63; PULSE 73; RESP 16; TEMP 36.7; O2SAT 100
[2021-02-01] VITALS (7 sets, daily range): BP systolic 120–132; BP diastolic 60–80; PULSE 72–86; RESP 14–21; TEMP 36.3–37; O2SAT 100
--- NOTE | 2021-02-01 06:15 | PC.NURSE ---
Left voicemail for [facility] IV nurse for possible new IV. IV is currently in the foot.
--- NOTE | 2021-02-01 06:17 | PC.NURSE ---
Patient currently has IV in the foot, left voicemail for [facility] IV nurse.
[2021-02-01] MEDS: ONDANSETRON INJ 4 MG/2 ML VIAL IV PUSH ×2 (08:33→16:13)
[2021-02-01] MEDS: NABUMETONE 500 MG TABLET PO ×2 (08:56→17:23)
[2021-02-01] MEDS: BACLOFEN 10 MG TABLET 20 MG PO (09:00)
[2021-02-01] MEDS: amLODIPine BESYLATE 5 MG TABLET 10 MG PO (09:02)
[2021-02-01] MEDS: ATORVASTATIN 20 MG TABLET PO (09:04)
[2021-02-01] MEDS: CARBAMAZEPINE XR 200 MG TAB.ER.12H PO ×2 (09:05→20:30)
[2021-02-01] MEDS: cycloSPORINE 0.4 ML OPHTH SOLUTION 1 DROP EACH EYE ×2 (09:06→20:30)
[2021-02-01] MEDS: DICLOFENAC SODIUM 1% 100 GM GEL (*BKC) 1 APPLIC TOPICAL ×4 (09:13→20:29)
[2021-02-01] MEDS: GABAPENTIN 300 MG CAPSULE PO ×2 (09:14→20:30)
[2021-02-01] MEDS: lamoTRIgine 25 MG TABLET PO (09:15)
[2021-02-01] MEDS: LIDOCAINE 5% PATCH 2 PATCH TRANSDERM (09:26)
[2021-02-01] MEDS: LORATADINE 5 MG TABLET PO (09:27)
[2021-02-01] MEDS: LOSARTAN POTASSIUM 50 MG TABLET PO (09:28)
[2021-02-01] MEDS: OLOPATADINE 0.1% OPHTH SOLN 5 ML BTL 1 DROP EACH EYE ×2 (09:30→20:29)
[2021-02-01] MEDS: PANTOPRAZOLE 40 MG TABLET PO ×2 (09:32→20:30)
[2021-02-01] MEDS: polyethylene glycoL 3350 17 GM POWD.PACK PO (09:33)
[2021-02-01] MEDS: POLYMYXIN/TRIMETHOPRIM OPHTH 10 ML DROPS 2 DROP LEFT EYE ×2 (09:36→20:28)
[2021-02-01] MEDS: TOLNAFTATE 1% POWDER 45 GM BTL 1 APPLIC TOPICAL ×3 (11:05→17:24)
--- NOTE | 2021-02-01 11:12 | PCRCNOTE ---
Window of time for administration has passed. See next scheduled administration.
--- NOTE | 2021-02-01 17:22 | PM.IMPN ---
Progress Note: A&P Assessment and Plan (1) Bacteriuria with pyuria: Code(s): R82.71 - Bacteriuria; R82.81 - Pyuria Status: Acute (2) Generalized weakness: Code(s): R53.1 - Weakness Status: Acute (3) Nausea & vomiting: Qualifiers: Vomiting Intractability: non-intractable Vomiting type: unspecified Qualified Code(s): R11.2 - Nausea with vomiting, unspecified Code(s): R11.2 - Nausea with vomiting, unspecified Status: Acute (4) Cholecystitis without calculus: Code(s): K81.9 - Cholecystitis, unspecified Status: Acute (5) Elevated transaminase level: Code(s): R74.01 - Elevation of levels of liver transaminase levels Status: Acute (6) Irritation of both eyes: Code(s): H57.89 - Other specified disorders of eye and adnexa Status: Acute (7) Chest pain: Code(s): R07.9 - Chest pain, unspecified Status: Acute Additional Plan # Generalized weakness unclear etiology however underlying infection suspected. Liver enzymes are more elevated as compared to [address] abdomen unremarkable. Fedder cholecystostomy tube output sent for culture. Follow-up blood culture. Liver enzymes improving # UTI placed on Rocephin urine culture with Pseudomonas. On ceftriaxone which will be discontinued and was switched to cefepime. Levaquin and Cipro is resistant # Elevated liver enzymes recheck liver enzymes stabilized and improving # Neurogenic bladder status post Chronic suprapubic catheter catheter exchanged last admission 01/05 if not exchanged will be due soon since urine culture growing more than 100,000 gram-negative bacilli will have it exchanged if not done this admission. Urology consulted and was exchanged 01/29/2021 # History of multiple sclerosis # Allergy conjunctivitis # Non ambulatory status # chest pain: Likely musculoskeletal/GERD related. Try Tums. Give a dose of morphine. EKG done with no acute ST-T changes. Troponin negative will continue to monitor vital stable no prior history of coronary artery disease. Interval history: She complains of chest pain in the retrosternal area since this morning. Rates it about 5-6/10 in intensity. Feels like tightness. Chest is also sore when pressed. No exacerbating or alleviating factor. EKG done with no acute ST-T changes. Troponin negative no prior history of cor coronary artery disease no fever chills tolerating diet. 01/31/21 Pseudomonas growing in the urine resistant to Cipro/Levaquin, Currently treated with Cefepime, will need IV antibiotics at discharge. Care coordination consultation for home infusion referral. will need cefepime at discharge for at least 7-10 days. today patient c/o abdominal pain, no BM fo 3 days and not passing any gas, will do KUB to further evaluate her further recommendation to follow 02/01/21 patient still has not had BM but denies any abdominal pain nausea or vomiting, will add Colace and MiraLax as needed, patient with a UTI with Pseudomonas resistant to oral antibiotic currently on Cefepime patient will need total of 14 days IV antibiotic, will arrange for for PICC line and may transfer patient to care home to receive IV antibiotics, continue to monitor Subjective Date/time seen: 02/01/21 17:22 Interval history: HPI:55-year-old female with past medical history of advanced multiple sclerosis, neurogenic bladder with suprapubic catheter placement, gastritis with recent EGD and placement of a gallbladder drain 01/13/2021 who presented back to the ER today due to not feeling well. The patient was discharged on 01/16/2021 after she had a cholecystostomy tube placed on 01/13/2021. She reports that on the she began developing increasing right upper quadrant abdominal pain inside her cholecystotomy tube. She also had associated nausea without actual vomiting. She had a fever between 99-100.1 that occurred right before she came to the ER on the 10t
[2021-02-01] MEDS: ALBUTEROL SULFATE NEB 2.5 MG/0.5 ML INH INHALATION (19:32)
[2021-02-01] MEDS: BACLOFEN 10 MG TABLET 30 MG PO (20:30)
[2021-02-01] MEDS: MONTELUKAST SODIUM 10 MG TABLET PO (20:30)
[2021-02-01] MEDS: diazePAM (*CRX) 5 MG TABLET 10 MG PO (20:33)
[2021-02-01] MEDS: DOCUSATE SODIUM 100 MG CAPSULE PO (20:34)
[2021-02-02] MEDS: ONDANSETRON INJ 4 MG/2 ML VIAL IV PUSH (05:48)
[2021-02-02 06:00] VITALS: BP 136/72; PULSE 66; RESP 20; TEMP 36.5; O2SAT 99
[2021-02-02] MEDS: OLOPATADINE 0.1% OPHTH SOLN 5 ML BTL 1 DROP EACH EYE ×2 (09:31→20:36)
[2021-02-02] MEDS: POLYMYXIN/TRIMETHOPRIM OPHTH 10 ML DROPS 2 DROP LEFT EYE ×2 (09:31→20:36)
[2021-02-02] MEDS: polyethylene glycoL 3350 17 GM POWD.PACK PO (09:31)
[2021-02-02] MEDS: amLODIPine BESYLATE 5 MG TABLET 10 MG PO (09:31)
[2021-02-02] MEDS: lamoTRIgine 25 MG TABLET PO (09:32)
[2021-02-02] MEDS: GABAPENTIN 300 MG CAPSULE PO ×2 (09:32→20:36)
[2021-02-02] MEDS: cycloSPORINE 0.4 ML OPHTH SOLUTION 1 DROP EACH EYE ×2 (09:32→20:37)
[2021-02-02] MEDS: CARBAMAZEPINE XR 200 MG TAB.ER.12H PO ×2 (09:32→20:36)
[2021-02-02] MEDS: DICLOFENAC SODIUM 1% 100 GM GEL (*BKC) 1 APPLIC TOPICAL ×4 (09:32→20:37)
[2021-02-02] MEDS: ATORVASTATIN 20 MG TABLET PO (09:32)
[2021-02-02] MEDS: NABUMETONE 500 MG TABLET PO ×2 (09:32→17:12)
[2021-02-02] MEDS: BACLOFEN 10 MG TABLET 20 MG PO (09:32)
[2021-02-02] MEDS: LORATADINE 5 MG TABLET PO (09:33)
[2021-02-02] MEDS: PANTOPRAZOLE 40 MG TABLET PO ×2 (09:33→20:36)
[2021-02-02] MEDS: LIDOCAINE 5% PATCH 2 PATCH TRANSDERM (09:34)
[2021-02-02] MEDS: LOSARTAN POTASSIUM 50 MG TABLET PO (09:35)
[2021-02-02] MEDS: TOLNAFTATE 1% POWDER 45 GM BTL 1 APPLIC TOPICAL ×3 (09:35→17:16)
[2021-02-02 10:26] LABS: Basophils Absolute Auto 0.1 K/mm3 (0.0-0.1); Basophils Percent Auto 0.8 % (0.2-1.2); Eosinophils Absolute Auto 0.3 K/mm3 (0-0.3); Eosinophils Percent Auto 4.2 % (0-4.4); Hematocrit 44.6 % (37.0-47.0); Hemoglobin 13.3 g/dL (12.0-15.0); Immature Granulocyte Absolute 0.02 K/mm3 (0.00-0.031); Immature Granulocyte Percent A 0.3 % (0-0.5); Lymphocytes Absolute Auto 1.94 K/mm3 (0.9-3.2); Lymphocytes Percent Auto 32.4 % (18.3-44.2); Mean Corpuscular HGB Conc 29.8 g/dl (32-36); Mean Corpuscular Volume 100.7 fl (80-100); Mean Platelet Volume 9.8 fl (7.4-10.4); Monocytes Absolute Auto 0.6 K/mm3 (0.1-0.6); Monocytes Percent Auto 9.2 % (2.6-8.5); Neutrophils Absolute Auto 3.2 K/mm3 (1.3-6.7); Neutrophils Percent Auto 53.1 % (45.5-73.1); Platelet Count Result 222 k/mm3 (150-375); Red Blood Count 4.43 M/mm3 (4.2-5.4); Red Cell Distribution Width 13.3 % (11.5-14.5)
[2021-02-02 10:47] LABS: Alanine Aminotransferase 82 U/L (4-35); Albumin Level 3.9 g/dL (3.5-5.1); Alkaline Phosphatase 172 U/L (38-126); Anion Gap 9 mmol/L (8-16); Aspartate Amino Transferase 36 U/L (14-36); Bilirubin,Total 0.4 mg/dL (0.2-1.3); Blood Urea Nitrogen 12 mg/dL (7-17); Calcium 9.1 mg/dL (8.4-10.2); Carbon Dioxide 29 mmol/L (22-30); Chloride 101 mmol/L (98-107); Estimated CRCL calculation 144 ml/min; Estimated Glomerular Filt Rate > 60; Glucose 102 mg/dL (65-110); Potassium 4.5 mmol/L (3.4-5.0); Sodium 139 mmol/L (137-145)
--- NOTE | 2021-02-02 13:09 | WPDINFPN2 ---
Progress Note: A&P Assessment and Plan (1) Abnormal urinalysis: Code(s): R82.90 - Unspecified abnormal findings in urine Status: Acute Assessment and Plan: 1. Asymptomatic bacteruria 2. Cholestasis, tube in place REC I do not think she needs further antibiotics, but will leave to your discretion. If so, antibiotic plan as outlined in progress note is appropriate. She should talk with her primary MD about elective Port a Cath, due to very poor IV access and multiple admissions over time. Call if Qs Subjective Date/time seen: 02/02/21 13:09 Objective Data Vital Signs Vital Signs: Vital Signs - 24 hr 02/01/21 14:56 02/01/21 19:33 02/01/21 19:47 Temperature 36.3 C L Pulse Rate 74 76 77 Respiratory Rate 14 20 20 Blood Pressure 120/62 Pulse Oximetry 100 02/01/21 20:00 02/01/21 22:00 02/02/21 06:00 Temperature 36.7 C 36.5 C Pulse Rate 77 86 66 Respiratory Rate 20 21 H 20 Blood Pressure 127/65 136/72 Pulse Oximetry 100 100 99 Intake/Output Intake/Output: Intake & Output 01/30/21 01/31/21 02/01/21 02/02/21 23:59 23:59 23:59 23:59 Intake Total 1220 680 830 270 Output Total 1756 090 2711 Balance 70 130 -570 270 Meds/Results Medications: Active Medications Generic Name Dose Route Start Last Admin Trade Name Freq PRN Reason Stop Dose Admin Albuterol 2 puff 01/28/21 07:59 Albuterol Sulfate (*Sp) Aerosol 1 Puff INHALATION Q4-6H PRN shortness of breath or wheezing Albuterol 2.5 mg 01/28/21 20:00 02/01/21 19:32 Albuterol Sulfate Neb 2.5 Mg/0.5 Ml Inh INHALATION 2.5 mg Q12HRT DANIELA Administration Amlodipine Besylate 10 mg 01/28/21 09:00 02/02/21 09:31 Amlodipine Besylate 5 Mg Tablet PO 10 mg DAILY DANIELA Administration Artificial Tears 1 drop 01/31/21 19:10 Artificial Tears Ophth Soln 15 Ml Bottle EACH EYE QID PRN Dry Eye(s) Atorvastatin Calcium 20 mg 01/28/21 09:00 02/02/21 09:32 Atorvastatin 20 Mg Tablet PO 20 mg DAILY DANIELA Administration Baclofen 20 mg 01/28/21 08:00 02/02/21 09:32 Baclofen 10 Mg Tablet PO 20 mg 0800 DANIELA Administration Baclofen 30 mg 01/28/21 21:00 02/01/21 20:30 Baclofen 10 Mg Tablet PO 30 mg HS DANIELA Administration Budesonide/Formoterol Fumarate 2 puff 01/28/21 08:40 02/01/21 19:33 Budesonide/Form 160-4.5 Mcg (*Sp) INHALATION 2 puff Q12HRT DANIELA Administration Calcium Carbonate 200 mg 01/30/21 13:11 Calcium Carbonate (Tums) 500 Mg (200 Mg Elemental) PO Q6H PRN Indigestion Carbamazepine 200 mg 01/28/21 09:00 02/02/21 09:32 Carbamazepine Xr 200 Mg Tab.Er.12h PO 200 mg Q12HR DANIELA Administration Cyclosporine 1 drop 01/28/21 09:00 02/02/21 09:32 Cyclosporine 0.4 Ml Ophth Solution EACH EYE 1 drop Q12HR DANIELA Administration Diazepam 10 mg 01/28/21 08:39 02/01/21 20:33 Diazepam (*Crx) 5 Mg Tablet PO 10 mg HS PRN Administration spasm Diclofenac Sodium 1 applic 01/30/21 13:00 02/02/21 09:32 Diclofenac Sodium 1% 100 Gm Gel (*Bkc) TOPICAL 1 applic QID DANIELA Administration Docusate Sodium 100 mg 02/01/21 11:00 02/01/21 20:34 Docusate Sodium 100 Mg Capsule PO 100 mg Q12H PRN Administration Constipation Gabapentin 300 mg 01/28/21 09:00 02/02/21 09:32 Gabapentin 300 Mg Capsule PO 300 mg DAILY DANIELA Administration Gabapentin 300 mg 01/29/21 21:10 02/01/21 20:30 Gabapentin 300 Mg Capsule PO 300 mg HS DANIELA Administration Cefepime HCl 2 gm in 50 mls @ 100 mls/hr 01/30/21 14:00 02/02/21 06:15 Maxipime 2 Gm/D5w 50 Ml IVPB Infused Q8H DANIELA Infusion Lamotrigine 25 mg 01/28/21 09:00 02/02/21 09:32 Lamotrigine 25 Mg Tablet PO 25 mg DAILY DANIELA Administration Lidocaine 2 patch 01/28/21 09:00 02/02/21 09:34 Lidocaine 5% Patch TRANSDERM 2 patch DAILY DANIELA Administration Loratadine 5 mg 01/28/21 09:00 02/02/21 09:33 Loratadine 5 Mg Tablet PO 5 mg DAILY
[2021-02-02 14:00] VITALS: BP 132/59; PULSE 68; RESP 20; TEMP 36.6; O2SAT 98
--- NOTE | 2021-02-02 15:24 | PM.IMPN ---
Progress Note: A&P Assessment and Plan (1) Bacteriuria with pyuria: Code(s): R82.71 - Bacteriuria; R82.81 - Pyuria Status: Acute (2) Generalized weakness: Code(s): R53.1 - Weakness Status: Acute (3) Nausea & vomiting: Qualifiers: Vomiting Intractability: non-intractable Vomiting type: unspecified Qualified Code(s): R11.2 - Nausea with vomiting, unspecified Code(s): R11.2 - Nausea with vomiting, unspecified Status: Acute (4) Cholecystitis without calculus: Code(s): K81.9 - Cholecystitis, unspecified Status: Acute (5) Elevated transaminase level: Code(s): R74.01 - Elevation of levels of liver transaminase levels Status: Acute (6) Irritation of both eyes: Code(s): H57.89 - Other specified disorders of eye and adnexa Status: Acute (7) Chest pain: Code(s): R07.9 - Chest pain, unspecified Status: Acute Additional Plan # Generalized weakness unclear etiology however underlying infection suspected. Liver enzymes are more elevated as compared to [address] abdomen unremarkable. Fedder cholecystostomy tube output sent for culture. Follow-up blood culture. Liver enzymes improving # UTI placed on Rocephin urine culture with Pseudomonas. On ceftriaxone which will be discontinued and was switched to cefepime. Levaquin and Cipro is resistant # Elevated liver enzymes recheck liver enzymes stabilized and improving # Neurogenic bladder status post Chronic suprapubic catheter catheter exchanged last admission 01/05 if not exchanged will be due soon since urine culture growing more than 100,000 gram-negative bacilli will have it exchanged if not done this admission. Urology consulted and was exchanged 01/29/2021 # History of multiple sclerosis # Allergy conjunctivitis # Non ambulatory status # chest pain: Likely musculoskeletal/GERD related. Try Tums. Give a dose of morphine. EKG done with no acute ST-T changes. Troponin negative will continue to monitor vital stable no prior history of coronary artery disease. Interval history: She complains of chest pain in the retrosternal area since this morning. Rates it about 5-6/10 in intensity. Feels like tightness. Chest is also sore when pressed. No exacerbating or alleviating factor. EKG done with no acute ST-T changes. Troponin negative no prior history of cor coronary artery disease no fever chills tolerating diet. 01/31/21 Pseudomonas growing in the urine resistant to Cipro/Levaquin, Currently treated with Cefepime, will need IV antibiotics at discharge. Care coordination consultation for home infusion referral. will need cefepime at discharge for at least 7-10 days. today patient c/o abdominal pain, no BM fo 3 days and not passing any gas, will do KUB to further evaluate her further recommendation to follow 02/01/21 patient still has not had BM but denies any abdominal pain nausea or vomiting, will add Colace and MiraLax as needed, patient with a UTI with Pseudomonas resistant to oral antibiotic currently on Cefepime patient will need total of 14 days IV antibiotic, will arrange for for PICC line and may transfer patient to [facility] to receive IV antibiotics, continue to monitor. 02/02/21 Patient is clinically stable has no new complaint, patient was seen by Dr. luna and does not recommend any more antibiotic and I agree as patient does not have fever will stop antibiotic, patient is very difficult with IV access will consult surgery chart for possibly Port-A-Cath for future use, will continue to monitor if remains clinically stable begin discharge the patient home tomorrow Subjective Date/time seen: 02/02/21 15:24 Interval history: HPI:55-year-old female with past medical history of advanced multiple sclerosis, neurogenic bladder with suprapubic catheter placement, gastritis with recent EGD and placement of a gallbladder drain 01/13/2021 who presented back to the
[2021-02-02] MEDS: ACETAMINOPHEN 325 MG TABLET 650 MG PO (17:12)
--- NOTE | 2021-02-02 17:51 | PM.CNGS ---
Assessment and Plan Assessment and plan (1) Poor venous access: Onset Date: ~01/2021 Code(s): I87.8 - Other specified disorders of veins Status: Acute Assessment and Plan: This is the main reason I was asked to see the patient. She often is admitted and is difficult venous access for both blood draws and IV access. She recently completed a course of antibiotics for another UTI or infection. While she is here the hospitalist asked me to consider placing a port. There does not appear to be any active infection that would be a contraindication to placing the port. I have talked with the patient explained of Port-A-Cath and she is desirous of having one. This should make her overall medical care easier and relieve the pain of multiple sticks. The risks, benefits, possible complications of Port-A-Cath placement including bleeding, infection, pneumothorax, possible infection of the port with need for removal of all been discussed she seems understand wished to proceed. (2) Multiple sclerosis: Code(s): G35 - Multiple sclerosis Status: Chronic (3) GERD (gastroesophageal reflux disease): Code(s): K21.9 - Gastro-esophageal reflux disease without esophagitis Status: Acute (4) Asthma: Qualifiers: Asthma severity: unspecified severity Asthma persistence: unspecified Asthma complication type: unspecified Qualified Code(s): J45.909 - Unspecified asthma, uncomplicated Code(s): J45.909 - Unspecified asthma, uncomplicated Status: Acute (5) Generalized weakness: Code(s): R53.1 - Weakness Status: Acute History of Present Illness Consult details Consult date: 02/03/21 Reason for consult: central line (Patient has poor IV access and needs it frequently. Consult is for possible port placement) Narrative: This patient is a pleasant 55-year-old somewhat overweight black female who has MS. She apparently is frequently in the hospital and also frequently needs antibiotics IV. She is a difficult stick for blood draws. Because of this the hospitalist service has asked us to consider placement of a Port-A-Cath. Patient recently has been taken off antibiotics from a recent infection but apparently no concerning infection is present at the time so it may be possible to go ahead and place a prior to discharge. Review of Systems Review of Systems: All systems reviewed & are unremarkable except as noted in HPI and below (Patient's past medical history noted below.) [facility] Past Medical History Medical History (Updated 02/03/21 @ 08:14 by Osman Wilburn MD) Anemia Asthma Bunion rt foot Cataract, right eye Chronic cholecystitis Status post cholecystostomy tube 01/09/2021 Clostridium difficile infection Contracture of toe rt foot Dilated pancreatic duct Ear infection Eczema Erosive gastritis Fibroids Fracture lt femur, lt tibia GERD (gastroesophageal reflux disease) Hyperlipidemia Hypertension Knee pain right knee after injury Methicillin resistant Staph aureus culture positive Multiple sclerosis Wheelchair-bound Onychomycosis Pneumonia Poor venous access (~01/2021) Pressure ulcer of coccygeal region Pulmonary embolism Seasonal allergies UTI (urinary tract infection) Vitreous floater Left eye Wrist pain right Surgical History Surgical History H/O rotator cuff surgery rt H/O toe surgery History of colonoscopy with polypectomy (10/2020) History of esophagogastroduodenoscopy (EGD) (10/2020) Hiatal hernia, gastritis, gastric retention History of mandibular surgery TMJ Hx of tubal ligation Suprapubic catheter (~2016) Family History Family History Sibling Heart disease Patient's sister is in good health Cerebrovascular accident Family history of cardiovascular disease Hypertension Father Family history of malignant n
[2021-02-02 19:39] VITALS: BP 114/59; PULSE 78; RESP 17; TEMP 36.4; O2SAT 100
[2021-02-02 20:00] VITALS: PULSE 74; RESP 20; O2SAT 94
[2021-02-02] MEDS: ALBUTEROL SULFATE NEB 2.5 MG/0.5 ML INH INHALATION (20:04)
[2021-02-02 20:08] VITALS: PULSE 74; RESP 20
[2021-02-02 20:09] VITALS: O2SAT 94
[2021-02-02] MEDS: MONTELUKAST SODIUM 10 MG TABLET PO (20:36)
[2021-02-02] MEDS: BACLOFEN 10 MG TABLET 30 MG PO (20:37)
[2021-02-02] MEDS: diazePAM (*CRX) 5 MG TABLET 10 MG PO (20:45)
[2021-02-03] VITALS (11 sets, daily range): BP systolic 125–150; BP diastolic 60–71; PULSE 64–87; RESP 14–18; TEMP 36–36.6; O2SAT 96–100
[2021-02-03 06:58] LABS: Basophils Percent Auto 0.7 % (0.2-1.2); Eosinophils Absolute Auto 0.3 K/mm3 (0-0.3); Hematocrit 40.9 % (37.0-47.0); Hemoglobin 12.3 g/dL (12.0-15.0); Immature Granulocyte Absolute 0.02 K/mm3 (0.00-0.031); Immature Granulocyte Percent A 0.3 % (0-0.5); Lymphocytes Absolute Auto 1.95 K/mm3 (0.9-3.2); Lymphocytes Percent Auto 33.9 % (18.3-44.2); Mean Corpuscular HGB Conc 30.1 g/dl (32-36); Mean Corpuscular Hemoglobin 30.2 pg (26-34); Mean Corpuscular Volume 100.5 fl (80-100); Mean Platelet Volume 10.1 fl (7.4-10.4); Monocytes Absolute Auto 0.4 K/mm3 (0.1-0.6); Monocytes Percent Auto 7.5 % (2.6-8.5); Neutrophils Percent Auto 52.6 % (45.5-73.1); Platelet Count Result 226 k/mm3 (150-375); Red Blood Count 4.07 M/mm3 (4.2-5.4); White Blood Count 5.8 K/mm3 (4.5-10.0)
[2021-02-03 07:10] LABS: Anion Gap 4 mmol/L (8-16); Blood Urea Nitrogen 12 mg/dL (7-17); Calcium 9.1 mg/dL (8.4-10.2); Carbon Dioxide 33 mmol/L (22-30); Chloride 100 mmol/L (98-107); Estimated CRCL calculation 113 ml/min; Estimated Glomerular Filt Rate > 60; Glucose 91 mg/dL (65-110); Potassium 4.4 mmol/L (3.4-5.0); Sodium 137 mmol/L (137-145)
[2021-02-03 07:13] LABS: Prothrombin Time 12.8 Seconds (11.1-14.7)
[2021-02-03 07:14] LABS: Partial Thromboplastin Time 30.1 SECONDS (22.3-36.8)
--- NOTE | 2021-02-03 07:57 | PC.NURSE ---
To OR at 0745, no IV access. Report faxed to preop. Consent in chart.
--- NOTE | 2021-02-03 08:14 | WPDANESEPPF ---
Anes - Initial Pre Proc Eval Procedure: Operation Date: 02/03/21 09:00 Proposed Procedures p Ultrasound Guided Gi Cath Insertion - Osman Wilburn MD Date/Time: 02/03/21 08:14 Surgeon: Adele Love DO Pre Op Diagnosis: nausea and vomiting, UTI Patient Data Age: 55 Gender: F Height: 1.52 m Weight: 70 kg Last Vital Signs Temp 36.6 C 02/03/21 03:07 Pulse 71 02/03/21 03:07 Resp 17 02/03/21 03:07 BP 146/67 H 02/03/21 03:07 Pulse Ox 100 02/03/21 03:07 Allergies Allergy/AdvReac Type Severity Reaction Status Date / Time Sulfa (Sulfonamide Allergy Mild Swelling Verified 01/28/21 06:14 Antibiotics) prochlorperazine Allergy Unknown Sweating Verified 01/28/21 06:14 lisinopril Allergy Unknown Verified 01/28/21 06:14 ibuprofen AdvReac Unknown Nausea Verified 01/28/21 06:14 Home Medications Medication Instructions Recorded Confirmed Type Restasis 1 drp OPHTHALMIC (EYE) Q12H 03/30/19 01/28/21 History cetirizine 5 mg PO DAILY 03/30/19 01/28/21 History gabapentin 300 mg PO DAILY 03/30/19 01/28/21 History polyethylene glycol 3350 [Miralax] 17 g PO EVERY OTHER DAY 03/30/19 01/28/21 History lamotrigine 25 mg tablet 25 mg PO DAILY tablet 05/22/19 01/28/21 History diazepam 10 mg tablet 10 mg PO HS PRN #90 tablet 08/24/19 01/28/21 Rx albuterol sulfate 90 mcg/actuation 2 puff INHALATION Q4-6H PRN #18 g 04/11/20 01/28/21 Rx aerosol inhaler carbamazepine 200 mg 200 mg PO Q12H #360 cap 09/28/20 01/28/21 Rx capsule,extended release [id number] nystatin 100,000 unit/gram topical 1 applic TOPICAL TID #60 g 10/20/20 01/28/21 Rx powder atorvastatin 20 mg tablet 20 mg PO DAILY #90 tablet 11/23/20 01/28/21 Rx amlodipine 10 mg tablet 10 mg PO DAILY #90 tablet 12/07/20 01/28/21 Rx pantoprazole 40 mg tablet,delayed 40 mg PO Q12HR #60 tablet 12/07/20 01/28/21 Rx release albuterol sulfate 0.63 mg/3 mL 0.63 mg INHALATION BID #1080 ml 12/15/20 01/28/21 Rx solution for nebulization budesonide-formoterol HFA 160 2 puff INHALATION BID #10.2 gm 12/22/20 01/28/21 Rx mcg-4.5 mcg/actuation aerosol inhaler baclofen 20 mg PO 0800 01/04/21 01/28/21 History baclofen 30 mg PO HS 01/04/21 01/28/21 History gabapentin 300 mg PO HS 01/04/21 01/29/21 History lidocaine 2 patch TRANSDERMAL DAILY 01/04/21 01/28/21 History losartan 50 mg tablet 50 mg PO DAILY #90 tablet 01/12/21 01/28/21 Rx polymyxin B sulf-trimethoprim 2 drp LEFT EYE Q12HR 10 Days #1 ea 01/16/21 01/28/21 Rx [Polytrim] montelukast 10 mg PO HS 01/29/21 01/29/21 History nabumetone 500 mg PO BID 01/29/21 01/29/21 History triamcinolone acetonide 1 applic TOPICAL BID PRN 01/29/21 01/29/21 History Laboratory Tests 02/02/21 02/02/21 02/03/21 09:36 09:36 06:11 WBC 6.0 K/mm3 K/mm3 (4.5-10.0) RBC 4.43 M/mm3 M/mm3 (4.2-5.4) Hgb 13.3 g/dL g/dL (12.0-15.0) Hct 44.6 % % (37.0-47.0) MCV 100.7 fl H fl (80-100) MCH 30.0 pg pg (26-34) MCHC 29.8 g/dl L g/dl (32-36) RDW 13.3 % % (11.5-14.5) Plt Count 222 k/mm3 k/mm3 (150-375) MPV 9.8 fl fl (7.4-10.4) Immature Gran % (Auto) 0.3 % % (0-0.5) Neut % (Auto) 53.1 % % (45.5-73.1) Lymph % (Auto) 32.4 % % (18.3-44.2) [place] % (Auto) 9.2 % H % (2.6-8.5) Eos % (Auto) 4.2 % % (0-4.4) Baso % (Auto) 0.8 % % (0.2-1.2) Lymph # (Auto) 1.94 K/mm3 K/mm3 (0.9-3.2) [place] # (Auto) 0.6 K/mm3 K/mm3 (0.1-0.6) Eos # (Auto) 0.3 K/mm3 K/mm3 (0-0.3) Baso # (Auto) 0.1 K/mm3 K/mm3 (0.0-0.1) Abs Immat Gran (auto) 0.02 K/mm3 K/mm3 (0.00-0.031) Absolute Neuts (auto) 3.2 K/mm3 K/mm3 (1.3-6.7) Absolute Nucleated RBC 0.0 K/mm3 K/mm3 (0.0-0.012) Nucleated RBC % 0.0 % % (0.0-0.2) PT 12.8 Seconds Seconds (11.1-14.7) INR 1.0 APTT 30
--- NOTE | 2021-02-03 08:17 | WPDHPUPDATE1 ---
History and Physical Update Update Date/Time: 02/03/21 08:17 History and Physical has been reviewed, including an updated exam of the patient. There are NO changes in the patient's condition since my consult last night. Risks, benefits, and alternatives of placement of a Port-A-Cath have been discussed and questions answered. Patient agrees to proceed with procedure.
--- NOTE | 2021-02-03 08:28 | SUR.PREOP ---
IV NURSE MALIK COUNTS HERE TO START IV. PT DIFFICULTY STICK
[2021-02-03] MEDS: LACTATED RINGERS 1,000 ML 30 ML IV CONT (09:10)
[2021-02-03] MEDS: ceFAZolin SODIUM 1 GM VIAL 2 GM IV PUSH (09:38)
[2021-02-03] MEDS: BUPIVACAINE/EPINEPHRINE 0.25% 50 ML VIAL 10 ML INFILTRATE (09:50)
[2021-02-03] MEDS: fentaNYL CITRATE INJ (*CRX) 100 MCG/2 ML VIAL 25 MCG IV PUSH ×3 (10:40→10:57)
--- NOTE | 2021-02-03 10:46 | W.PM.PROC2 ---
Procedure Note - Detailed Date of Procedure 02/03/21 Pre-op Diagnosis 1. Poor venous access 2. nausea and vomiting, UTI Post-op Diagnosis same Procedure Performed Ultrasound guided Placement of Gi-cath Surgeon Osman Wilburn MD Supervisor [employer] Isi TALBERT.OR surgical first assistant Anesthesia local (with 0.5% Marcaine with epinepherine) and other (GIVS some Ketamine) Indications Patient is a debilitated 55-year-old black female with severe MS. She does not move her extremities much at all and is very weak. Because she cannot move her arms well and there were thin she has poor central or peripheral venous access. Often has to get IVs in her feet. Because of this the nurses thought of an I was asked to consider placing a port for future central venous access and IV access. This is the indication for placement of the Port-A-Cath. Findings Normal vascular anatomy in the right neck by ultrasound. Description of Procedure Patient was seen and marked in the pre-op area prior to coming to the OR. Patient was brought to the operating room. Patient was placed supine on the operating table and general IV sedation was induced. The nurse disk recordist provided oxygen and IV sedation. Patient's head was carefully turned to the left side while in the supine position and the patient's entire neck and anterior chest on both sides was prepped and draped in the usual sterile fashion. Following this the appropriate time-out was completed confirming procedure and patient. We confirmed that all the needed equipment was present in the room. Following this the ultrasound probe was draped into the field and using the probe we carefully identified the carotid artery and jugular vein on the right neck. We then took a picture of the vascular anatomy of the neck and transferred from the ultrasound to the Scan & Target chart. I marked the skin directly over the Rt. internal jugular vein. I then used an 11 blade knife to make a small silva in the skin. Following this, using the continuous ultrasound guidance, a Cook needle was placed through the skin incision and on into this vein. I then was able to draw back good dark blood. Once this was completed a guidewire using a J-tip was advanced through the needle and then the needle and the guidewire cover were withdrawn. C-arm fluoroscopy was used to confirm that the guidewire was nicely in the venous system. Once this was confirmed with the C - arm, I preceded on by making the pocket for the port on the patient's anterior right chest approximately 3 centimeters below the clavicle overlying the chest wall. Local anesthetic was infiltrated into the skin where there was a transverse incision marked out. Incision was made and we made a pocket inferior to the incision with just a little dissection superior. The Bard low-profile port was tried in the pocket and seemed to fit well. Following this the catheter which had been placed on a tunneling device was tunneled from the port site on the anterior right chest up to the right neck where the small incision had been made slightly larger with an #11 blade knife. Then the catheter was pulled through so that we would have 15 centimeters to put into the central venous system once the dilation took place. Following this we placed the dilator and sheath over the guidewire in the jugular vein and carefully dilated the tract into the central venous system. The guidewire and dilator were then removed, carefully covering the end of the sheath to prevent air embolus. The end of the catheter which had been removed from the tunneling device and the tip checked was then inserted into the sheath and into the neck. I then carefully pulled the 2 arms of the tear-away sheath away as the computer lab assistant held the catheter in position with a DeBakey forceps. Following this we checked the position of the catheter with C-arm fluoroscopy confirming that the tip seemed to be in the distal superior vena cava near the junction with the r
--- NOTE | 2021-02-03 11:43 | PC.NURSE ---
Returned from OR[ ]. Report received from [Leno].
[2021-02-03] MEDS: ONDANSETRON INJ 4 MG/2 ML VIAL IV PUSH ×2 (11:48→22:00)
[2021-02-03] MEDS: amLODIPine BESYLATE 5 MG TABLET 10 MG PO (11:52)
[2021-02-03] MEDS: OLOPATADINE 0.1% OPHTH SOLN 5 ML BTL 1 DROP EACH EYE ×2 (11:52→20:15)
[2021-02-03] MEDS: NABUMETONE 500 MG TABLET PO ×2 (11:52→16:17)
[2021-02-03] MEDS: POLYMYXIN/TRIMETHOPRIM OPHTH 10 ML DROPS 2 DROP LEFT EYE ×2 (11:52→20:15)
--- NOTE | 2021-02-03 11:52 | PM.IMPN ---
Progress Note: A&P Assessment and Plan (1) Bacteriuria with pyuria: Code(s): R82.71 - Bacteriuria; R82.81 - Pyuria Status: Acute (2) Generalized weakness: Code(s): R53.1 - Weakness Status: Acute (3) Nausea & vomiting: Qualifiers: Vomiting Intractability: non-intractable Vomiting type: unspecified Qualified Code(s): R11.2 - Nausea with vomiting, unspecified Code(s): R11.2 - Nausea with vomiting, unspecified Status: Acute (4) Cholecystitis without calculus: Code(s): K81.9 - Cholecystitis, unspecified Status: Acute (5) Elevated transaminase level: Code(s): R74.01 - Elevation of levels of liver transaminase levels Status: Acute (6) Irritation of both eyes: Code(s): H57.89 - Other specified disorders of eye and adnexa Status: Acute (7) Chest pain: Code(s): R07.9 - Chest pain, unspecified Status: Acute Additional Plan # Generalized weakness unclear etiology however underlying infection suspected. Liver enzymes are more elevated as compared to [address] abdomen unremarkable. Fedder cholecystostomy tube output sent for culture. Follow-up blood culture. Liver enzymes improving # UTI placed on Rocephin urine culture with Pseudomonas. On ceftriaxone which will be discontinued and was switched to cefepime. Levaquin and Cipro is resistant # Elevated liver enzymes recheck liver enzymes stabilized and improving # Neurogenic bladder status post Chronic suprapubic catheter catheter exchanged last admission 01/05 if not exchanged will be due soon since urine culture growing more than 100,000 gram-negative bacilli will have it exchanged if not done this admission. Urology consulted and was exchanged 01/29/2021 # History of multiple sclerosis # Allergy conjunctivitis # Non ambulatory status # chest pain: Likely musculoskeletal/GERD related. Try Tums. Give a dose of morphine. EKG done with no acute ST-T changes. Troponin negative will continue to monitor vital stable no prior history of coronary artery disease. Interval history: She complains of chest pain in the retrosternal area since this morning. Rates it about 5-6/10 in intensity. Feels like tightness. Chest is also sore when pressed. No exacerbating or alleviating factor. EKG done with no acute ST-T changes. Troponin negative no prior history of cor coronary artery disease no fever chills tolerating diet. 01/31/21 Pseudomonas growing in the urine resistant to Cipro/Levaquin, Currently treated with Cefepime, will need IV antibiotics at discharge. Care coordination consultation for home infusion referral. will need cefepime at discharge for at least 7-10 days. today patient c/o abdominal pain, no BM fo 3 days and not passing any gas, will do KUB to further evaluate her further recommendation to follow 02/01/21 patient still has not had BM but denies any abdominal pain nausea or vomiting, will add Colace and MiraLax as needed, patient with a UTI with Pseudomonas resistant to oral antibiotic currently on Cefepime patient will need total of 14 days IV antibiotic, will arrange for for PICC line and may transfer patient to assisted to receive IV antibiotics, continue to monitor. 02/02/21 Patient is clinically stable has no new complaint, patient was seen by Dr. luna and does not recommend any more antibiotic and I agree as patient does not have fever will stop antibiotic, patient is very difficult with IV access will consult surgery chart for possibly Port-A-Cath for future use, will continue to monitor if remains clinically stable begin discharge the patient home tomorrow. 02/03/21 Patient was seen by General surgery service taken to OR and Port-A-Cath was placed, patient is doing well has no new complaint will monitor patient overnight, if remains clinically stable will discharge the patient home tomorrow Subjective Date/time seen: 02/03/21 11:52 Interval his
[2021-02-03] MEDS: lamoTRIgine 25 MG TABLET PO (11:53)
[2021-02-03] MEDS: GABAPENTIN 300 MG CAPSULE PO ×2 (11:53→20:11)
[2021-02-03] MEDS: BACLOFEN 10 MG TABLET 20 MG PO (11:53)
[2021-02-03] MEDS: cycloSPORINE 0.4 ML OPHTH SOLUTION 1 DROP EACH EYE ×2 (11:53→20:08)
[2021-02-03] MEDS: ATORVASTATIN 20 MG TABLET PO (11:54)
[2021-02-03] MEDS: DOCUSATE SODIUM 100 MG CAPSULE PO (11:54)
[2021-02-03] MEDS: CARBAMAZEPINE XR 200 MG TAB.ER.12H PO ×2 (11:54→20:09)
[2021-02-03] MEDS: PANTOPRAZOLE 40 MG TABLET PO ×2 (11:54→20:16)
[2021-02-03] MEDS: LORATADINE 5 MG TABLET PO (11:54)
[2021-02-03] MEDS: TOLNAFTATE 1% POWDER 45 GM BTL 1 APPLIC TOPICAL ×3 (11:55→16:18)
[2021-02-03] MEDS: LOSARTAN POTASSIUM 50 MG TABLET PO (11:55)
[2021-02-03] MEDS: LIDOCAINE 5% PATCH 2 PATCH TRANSDERM (11:56)
[2021-02-03] MEDS: polyethylene glycoL 3350 17 GM POWD.PACK PO (11:56)
[2021-02-03] MEDS: DICLOFENAC SODIUM 1% 100 GM GEL (*BKC) 1 APPLIC TOPICAL ×4 (11:58→20:11)
[2021-02-03] MEDS: oxyCODONE HCL (*CRX) 5 MG TAB IR PO (12:06)
--- NOTE | 2021-02-03 12:25 | PC.NURSE ---
Spoke with Dr. Smith regarding plan of care for patient. Per Dr. Smith, patient is likely to be discharged tomorrow, 02/04/21. Patient had a annetta cath placed today by Dr. Wilburn. However, patient is not receiving any IV medications and is stable for discharge from a medical standpoint. Dr. Smith would just like to observe her overnight after having port placed today. Therefore, I called and spoke with Dr. Yarbrough (Dr. Wilburn left for the day). Per Dr. Yarbrough, since patient has no IV medications and she is likely to be discharged tomorrow, I received orders to discontinue access annetta cath order, and d/c port heparin/flushes. If we end up losing the patients current peripheral access, we may access port at that point in time. However, unnecessary to stick patient if port is not going to be used.
[2021-02-03] MEDS: ACETAMINOPHEN 325 MG TABLET 650 MG PO (16:17)
[2021-02-03] MEDS: ALBUTEROL SULFATE NEB 2.5 MG/0.5 ML INH INHALATION (19:33)
[2021-02-03] MEDS: BACLOFEN 10 MG TABLET 30 MG PO (20:08)
[2021-02-03] MEDS: MONTELUKAST SODIUM 10 MG TABLET PO (20:14)
[2021-02-03] MEDS: diazePAM (*CRX) 5 MG TABLET 10 MG PO (20:19)
[2021-02-03] MEDS: MORPHINE SULFATE (*CRX) 2 MG/ML INJ IV PUSH (22:00)
[2021-02-04 05:33] VITALS: BP 124/59; PULSE 68; RESP 16; TEMP 36.6; O2SAT 100
[2021-02-04 06:27] LABS: Anion Gap 7 mmol/L (8-16); Blood Urea Nitrogen 13 mg/dL (7-17); Calcium 9.3 mg/dL (8.4-10.2); Carbon Dioxide 31 mmol/L (22-30); Chloride 101 mmol/L (98-107); Estimated CRCL calculation 144 ml/min; Estimated Glomerular Filt Rate > 60; Glucose 95 mg/dL (65-110); Potassium 4.9 mmol/L (3.4-5.0); Sodium 139 mmol/L (137-145)
[2021-02-04] MEDS: ACETAMINOPHEN 325 MG TABLET 650 MG PO (07:19)
[2021-02-04] MEDS: LIDOCAINE 5% PATCH 2 PATCH TRANSDERM (08:36)
[2021-02-04] MEDS: LORATADINE 5 MG TABLET PO (08:36)
[2021-02-04] MEDS: PANTOPRAZOLE 40 MG TABLET PO (08:36)
[2021-02-04] MEDS: BACLOFEN 10 MG TABLET 20 MG PO (08:36)
[2021-02-04] MEDS: CARBAMAZEPINE XR 200 MG TAB.ER.12H PO (08:36)
[2021-02-04] MEDS: NABUMETONE 500 MG TABLET PO ×2 (08:36→17:20)
[2021-02-04] MEDS: POLYMYXIN/TRIMETHOPRIM OPHTH 10 ML DROPS 2 DROP LEFT EYE (08:37)
[2021-02-04] MEDS: ATORVASTATIN 20 MG TABLET PO (08:37)
[2021-02-04] MEDS: lamoTRIgine 25 MG TABLET PO (08:37)
[2021-02-04] MEDS: GABAPENTIN 300 MG CAPSULE PO (08:37)
[2021-02-04] MEDS: amLODIPine BESYLATE 5 MG TABLET 10 MG PO (08:37)
[2021-02-04] MEDS: cycloSPORINE 0.4 ML OPHTH SOLUTION 1 DROP EACH EYE (08:37)
[2021-02-04] MEDS: polyethylene glycoL 3350 17 GM POWD.PACK PO (08:38)
[2021-02-04] MEDS: DICLOFENAC SODIUM 1% 100 GM GEL (*BKC) 1 APPLIC TOPICAL ×2 (08:38→17:20)
[2021-02-04] MEDS: TOLNAFTATE 1% POWDER 45 GM BTL 1 APPLIC TOPICAL ×2 (08:38→17:20)
[2021-02-04] MEDS: OLOPATADINE 0.1% OPHTH SOLN 5 ML BTL 1 DROP EACH EYE (08:38)
[2021-02-04] MEDS: LOSARTAN POTASSIUM 50 MG TABLET PO (08:38)
[2021-02-04 10:05] VITALS: PULSE 81; RESP 16
[2021-02-04] MEDS: ALBUTEROL SULFATE NEB 2.5 MG/0.5 ML INH INHALATION (10:05)
[2021-02-04 10:08] VITALS: O2SAT 96
--- NOTE | 2021-02-04 12:30 | PM.DS ---
DS: Admitting Diagnosis Discharge Date February 04 2021 Admitting Diagnosis Weakness with abnormal urinalysis abdominal discomfort chest discomfort and eye irritation DS: Discharge Diagnosis Discharge Diagnosis (1) Bacteriuria with pyuria: Code(s): R82.71 - Bacteriuria; R82.81 - Pyuria Status: Acute (2) Generalized weakness: Code(s): R53.1 - Weakness Status: Acute (3) Nausea & vomiting: Qualifiers: Vomiting Intractability: non-intractable Vomiting type: unspecified Qualified Code(s): R11.2 - Nausea with vomiting, unspecified Code(s): R11.2 - Nausea with vomiting, unspecified Status: Acute (4) Cholecystitis without calculus: Code(s): K81.9 - Cholecystitis, unspecified Status: Acute (5) Elevated transaminase level: Code(s): R74.01 - Elevation of levels of liver transaminase levels Status: Acute (6) Irritation of both eyes: Code(s): H57.89 - Other specified disorders of eye and adnexa Status: Acute (7) Chest pain: Code(s): R07.9 - Chest pain, unspecified Status: Acute DS: Summary Hospital Course Hospital Course: Patient was seen and examined on February 04, 2021 Patient was admitted with multiple issues including generalized weakness low-grade fever documented at home right upper quadrant discomfort and near her cholecystostomy tube nonspecific chest discomfort abnormal appearing urine and eye irritation. During hospitalization she was treated with IV antibiotics med was determined that she did not have a UTI rather she had urine colonization with Pseudomonas aeruginosa resistant to fluoroquinolones. She had a port placed for IV access due to poor IV access. She did have an IV placed in her right foot prior to the port. She had her suprapubic catheter tube changed due to the asymptomatic bacteriuria. She was given symptomatic treatment and showed no signs of unstable cardiac or pulmonary conditions. Her cholecystostomy tube was functioning well. She tolerated her diet. She had no further complaints of abdominal pain. She was seen by the General surgery Service during hospitalization as well as by the Infectious Disease Service. She was discharged back to home with home health as previously. She was to return if any symptoms recurred or worsened or if any new symptoms developed. During hospitalization she underwent chest x-ray as well as CT of abdomen pelvis that showed no acute process. Electrocardiogram showed sinus rhythm with small inferior Q-waves. Time Spent with Patient Time attestation: Total time spent providing and/or coordinating discharge services: Time spent: Greater than 30 minutes Exam Narrative: Patient is comfortable, NAD HEENT: eyes are clear and none icteric Chest right upper wound dressing LUNGS:CTA HEART: RR S1S2 ABD: BS+, Soft and nontender Lower extremities: no pitting edema SKIN: nonjaundiced Neuro: CN symmetric to inspection, diffuse weakness and muscle wasting of extremities DS: Data Data Completed and Pending Labs on day of discharge: Labs from last 24 hours 02/04/21 02/04/21 06:03 06:03 WBC Pending RBC Pending Hgb Pending Hct Pending MCV Pending MCH Pending MCHC Pending RDW Pending Plt Count Pending MPV Pending Immature Gran % (Auto) Pending Neut % (Auto) Pending Lymph % (Auto) Pending [place] % (Auto) Pending Eos % (Auto) Pending Baso % (Auto) Pending Lymph # (Auto) Pending [place] # (Auto) Pending Eos # (Auto) Pending Baso # (Auto) Pending Abs Immat Gran (auto) Pending Absolute Neuts (auto) Pending Absolute Nucleated RBC Pending Nucleated RBC % Pending Sodium 139 Potassium 4.9 Chloride 101 Carbon Dioxide 31 H Anion Gap 7 L BUN 13 Creatinine 0.30 L Estim Creat Clear Calc 144 Estimated GFR > 60 Glucose 95 Calcium 9.3 Discharge Plan Discharge Consulting providers: Manoj Tilley
[2021-02-04 14:00] VITALS: BP 118/59; PULSE 79; RESP 16; TEMP 36.5; O2SAT 98
--- NOTE | 2021-02-09 12:13 | CONS_ITS ---
DATE OF CONSULTATION: 02/02/2021 REASON FOR CONSULTATION: Positive urine culture. HISTORY OF PRESENT ILLNESS: A 55-year-old female known to me from past. She has a chronic suprapubic catheter tube and I last saw her about a year ago at which point she had no active UTI. She is not on chronic oral suppression, nor did I recommend the same. She was admitted to the hospital on the evening of January 27 with malaise. This is in the setting of recent atonic bladder and cholestasis requiring a cholecystostomy tube. While here, the patient has received several antibiotics, currently cefepime since the and consultation requested. The patient has had changed her suprapubic catheter without incident several days ago by Urology. Her malaise is improved. No fever, chills, or sweats. She has had excessive tearing, treated with eyedrops and she is now able to open her eyes much easier. No other surgical interventions since arrival and none are planned for the gallbladder. ALLERGIES: SULFA. OTHERS NOT PERTINENT. HABITS: No tobacco. No alcohol. PRESENT MEDICATIONS: See above, no immunosuppressants. PAST MEDICAL HISTORY: In addition to the above, multiple sclerosis resulting in bed-bound status, BTL, colon polyps with removal, toe surgery, rotator cuff surgery, seasonal allergies, previous pulmonary embolism, decubitus ulcers, MRSA infection, colonization in the past, hypertension, hyperlipidemia, GERD, morbid obesity, fibroid tumors, eczema, dilated pancreatic duct, C. diff infection, anemia, asthma. FAMILY HISTORY: Stroke, heart disease, hypertension, diabetes. SOCIAL HISTORY: She is , disabled, lives locally. REVIEW OF SYSTEMS: 14-point review otherwise negative except as above. PHYSICAL EXAMINATION: GENERAL: This is a middle-aged female, who appears older than her actual age, in no acute distress, afebrile since arrival, 136/72, 66, 20, 99% room air. SKIN: Warm and dry. No generalized rash. HEENT: Conjunctivae are normal. Pupils somewhat contracted, but reactive. Oropharynx, oral mucosa normal. No thrush. NECK: No masses, thyromegaly. LUNGS: Clear to auscultation and percussion. CARDIAC: Regular rate and rhythm. No murmurs or gallops. ABDOMEN: Obese, nontender. No masses. No organomegaly. : Gonzalez catheter draining clear yellow urine. No sediment. No blood. EXTREMITIES: Some muscle wasting. No clubbing, cyanosis, or edema. LABORATORY DATA: Previous urine cultures at various times with Proteus, Staph aureus, Pseudomonas with the latter repeated on January 28. Blood cultures final, no growth. White count has been consistently normal. Hemoglobin 13.3, platelets are 222, differential is normal. Chemistry panel today is normal other than low creatinine, which is stable at 0.3. Liver function tests variable mildly high. RADIOLOGY: Abdomen and pelvic CT on return the shows appropriate tube placements. No acute findings. Collapsed gallbladder. No upper tract urinary infection. ASSESSMENT: 1. Asymptomatic bacteriuria, no urinary tract infection. 2. Malaise, noninfectious. 3. Chronic suprapubic catheter. 4. Poor IV access. Current peripheral IV in the right foot. 5. Bedridden status due to her multiple sclerosis. RECOMMENDATIONS: 1. From my standpoint, no further antibiotics. However, if further antibiotics for the Pseudomonas isolation are judged indicated, the antibiotic plan as outlined in the progress note from yesterday is appropriate. 2. See primary care physician about Port-A-Cath, which I think would be indicated for long-term IV access management. I did discuss with her that percutaneous catheters are not appropriate for indefinite use. I also discussed that long-term oral antibiotic suppression i
== END 2021-02-04 18:40 | disposition home health service (06) | DRG 696 ==
LOC: ANHED 01-28 03:27 → ANH2MED 01-28 04:50
PROVIDERS: Family Medicine; Internal Medicine; Surgery; Admitting Provider Internal Medicine; Emergency Provider Emergency Medicine; PCP Internal Medicine; Visit Provider Internal Medicine
PROC: 0JH63XZ Insertion of Tunneled Vascular Access Device into Chest Subcutaneous Tissue and Fascia, Percutaneous Approach (ICD-10-PCS; principal; 2021-02-03 09:00)
DX: R82.71 Bacteriuria (principal); Z16.23 Resistance to quinolones and fluoroquinolones; G35 Multiple sclerosis; J45.909 Unspecified asthma, uncomplicated; K21.9 Gastro-esophageal reflux disease without esophagitis; E78.5 Hyperlipidemia, unspecified; I10 Essential (primary) hypertension; Z86.14 Personal history of Methicillin resistant Staphylococcus aureus infection; Z86.711 Personal history of pulmonary embolism; N31.9 Neuromuscular dysfunction of bladder, unspecified; K29.70 Gastritis, unspecified, without bleeding; R74.01 Elevation of levels of liver transaminase levels; K81.1 Chronic cholecystitis; H04.129 Dry eye syndrome of unspecified lacrimal gland; R07.89 Other chest pain; B96.5 Pseudomonas (aeruginosa) (mallei) (pseudomallei) as the cause of diseases classified elsewhere; H10.13 Acute atopic conjunctivitis, bilateral; I87.8 Other specified disorders of veins
CPT/HCPCS: 36415; 70450; 71045; 74018; 74176; 76937; 77001; 80048; 80053; 80076; 81001; 83605; 83735; 84484; 85025; 85027; 85610; 85730; 87040; 87077; 87086; 87088; 87186; 93005; 94640; 96361; 96365; 96367; 96372; 96375; 96376; 99285; A9270; C1788; G0378; J0131; J0690; J0692; J0696; J1100; J1644; J2250; J2270; J2405; J2704; J3010; J7030; J7120

== ENCOUNTER 2021-02-12 12:01 | Emergency (ER) | payer MEDICARE, MEDICAID, SELFPAY ==
--- NOTE | ~2021-02-12 | CT_ITS ---
EXAMINATION: CT brain wo con EXAM DATE: 02/12/2021 12:55 INDICATION: Fall, head injury. History MS. TECHNIQUE: Spiral CT of the head was performed without contrast. Axial, coronal and sagittal images were reviewed. The dose-length product (DLP) for this examination was 605.33 mGy-cm. The exposure w as tailored according to patient size, and iterative reconstruction (ASIR) was used as additional dos e reduction technique. Comparison is made to prior examination from 01/27/2021. FINDINGS: There is moderate amount of white matter disease in both subcortical and periventricular re gions, multiple sclerosis and microangiopathy. There is no acute intraparenchymal hemorrhage. No lesly dence of intraparenchymal brain mass lesion. No evidence of acute infarction. There is no mass effe ct or midline shift. The ventricles are normal in size. There are no extra-axial collections. Ther e are no acute calvarial fractures. The orbits are unremarkable. Soft tissue is unremarkable. The v isualized sinuses and mastoid air cells are well aerated. IMPRESSION: Chronic white matter disease consistent with multiple sclerosis and superimposed microang iopathy. Reviewed, dictated and finalized at location A. IMPRESSION: Chronic white matter disease consistent with multiple sclerosis and superimposed microangiopathy.
--- NOTE | ~2021-02-12 | CT_ITS ---
EXAMINATION: CT cervical spine wo con EXAM DATE: 02/12/2021 12:55 INDICATION: Fall, head injury. TECHNIQUE: Spiral CT of the cervical spine was performed without contrast. Axial images were reviewe d. Coronal and sagittal reformatted images cervical spine were also reviewed. The dose-length produc t (DLP) for this examination was 187.94 mGy-cm. The exposure was tailored according to patient size (auto mA exposure control), and iterative reconstruction (ASIR) was used as additional dose reduction technique. Comparison is made to prior examination from 01/15/2020. FINDINGS: There is right-sided portacatheter. There is no evidence of acute cervical fracture. The o dontoid process is intact. Pre-dens space is normal. Prevertebral soft tissue is normal. There are no soft tissue abnormalities identified. There is no disc space widening or traumatic vertebral bod y subluxation suspected. Advanced cervical spondylosis. A detailed level by level evaluation of spo ndylosis can be added as addendum if requested. IMPRESSION: 1. No acute cervical fracture. 2. Advanced cervical spondylosis. Reviewed, dictated and finalized at location A.
--- NOTE | ~2021-02-12 | XR_ITS ---
EXAMINATION: XR knee LT 3V EXAM DATE: 02/12/2021 13:06 INDICATION: Tibial fracture. Pain. Initial encounter. TECHNIQUE: Three projections of the left knee. There is no prior study for comparison. FINDINGS: Acute closed posttraumatic fractures through the left tibial and fibular proximal metaphyse s. No definite fracture line into the knee joint, and there is no evidence of knee joint hemarthrosis which is a secondary sign of joint involvement. There is mild posterior angulation to both of these fractures. A previously seen fibular fracture has healed. The patella, femur unremarkable. IMPRESSION: Acute mildly comminuted left tibial and fibular proximal metaphyseal fractures, mild post erior angulation. Orthopedic consult. Reviewed, dictated and finalized at location A. IMPRESSION: Acute mildly comminuted left tibial and fibular proximal metaphysea l fractures, mild posterior angulation. Orthopedic consult.
[2021-02-12 12:03] VITALS: BP 114/71; PULSE 83; RESP 14; TEMP 36.2; O2SAT 100
--- NOTE | 2021-02-12 12:45 | ED.FALL ---
HPI - Fall General Chief Complaint: Fall Stated Complaint: FALL OUT OF NUBIA LIFT Time Seen by Provider: 02/12/21 12:23 Source: patient Mode of arrival: ambulatory Limitations: no limitations History of Present Illness HPI Narrative: Patient is a 55-year-old female complaining of head, neck and left knee pain, 8 out of 10, aching, after she fell while transferring from wheelchair to the couch. Patient denies any loss of consciousness. Patient denies any chest, back, abdomen, pelvis, hip or any other extremity pain/injury. Patient has a history of MS and is nonambulatory. Related Data Home Medications Medication Instructions Recorded Confirmed Restasis 1 drp OPHTHALMIC (EYE) Q12H 03/30/19 01/28/21 cetirizine 5 mg PO DAILY 03/30/19 01/28/21 gabapentin 300 mg PO DAILY 03/30/19 01/28/21 polyethylene glycol 3350 [Miralax] 17 g PO EVERY OTHER DAY 03/30/19 01/28/21 lamotrigine 25 mg tablet 25 mg PO DAILY tablet 05/22/19 01/28/21 baclofen 20 mg PO 0800 01/04/21 01/28/21 baclofen 30 mg PO HS 01/04/21 01/28/21 gabapentin 300 mg PO HS 01/04/21 01/29/21 lidocaine 2 patch TRANSDERMAL DAILY 01/04/21 01/28/21 montelukast 10 mg PO HS 01/29/21 01/29/21 nabumetone 500 mg PO BID 01/29/21 01/29/21 triamcinolone acetonide 1 applic TOPICAL BID PRN 01/29/21 01/29/21 Allergies Allergy/AdvReac Type Severity Reaction Status Date / Time Sulfa (Sulfonamide Allergy Mild Swelling Verified 02/12/21 13:49 Antibiotics) prochlorperazine Allergy Unknown Sweating Verified 02/12/21 13:49 lisinopril Allergy Unknown Verified 02/12/21 13:49 ibuprofen AdvReac Unknown Nausea Verified 02/12/21 13:49 Review of Systems Review of Systems: All systems reviewed & are unremarkable except as noted in HPI and below Constitutional: Constitutional: Denies body ache(s), Denies chills, Denies excessive sweating, Denies fatigue, Denies fever(s), Denies headache(s), Denies lethargy, Denies malaise, Denies weakness and Denies weight loss Eyes: Eyes: Denies blurry vision, Denies change in vision and Denies loss of vision ENT: Denies dizziness, Denies ear discharge, Denies headache(s), Denies lip swelling, Denies epistaxis, Denies nasal congestion, Denies throat swelling and Denies tongue swelling Cardiovascular: Cardiovascular: Denies chest pain, Denies chest pain at rest, Denies chest pain with activity, Denies diaphoresis, Denies rapid heart rate, Denies edema, Denies irregular heart rhythm, Denies lightheadedness, Denies palpitations, Denies dyspnea and Denies dyspnea on exertion Respiratory: Respiratory: Denies chest congestion, Denies cough, Denies hemoptysis, Denies dyspnea and Denies dyspnea on exertion Gastrointestinal: Gastrointestinal: Denies abdominal pain, Denies melena, Denies hematochezia, Denies diarrhea, Denies nausea, Denies vomiting and Denies hematemesis Musculoskeletal: Musculoskeletal: Denies abnormal gait, Denies deformity, Denies joint swelling, Denies limited range of motion, Denies neck pain and Denies numbness Neurologic: Denies Abnormal speech present, Denies abnormal gait, Denies confusion, Denies dizziness, Denies headache(s), Denies focal weakness, Denies loss of vision, Denies numbness, Denies Other visual disturbances, Denies Sensory deficit (Neuro) and Denies weakness Psychiatric: Psychiatric: Denies confusion, Denies depression, Denies auditory hallucinations, Denies homicidal ideation and Denies suicidal ideation Endocrine: Endocrine: Denies cold intolerance, Denies excessive sweating, Denies fatigue, Denies heat intolerance and Denies palpitations Hematologic/Lymphatic: Hematologic/Lymphatic: Denies easy bleeding and Denies easy bruising Allergic/Immunologic: Allergic/Immunologic: Denies lip swelling, Denies throat swelling and Denies tongue swelling PMFSH Past Medical History Medical History Anemia Asthma Bunion rt foot Cataract, right eye Chronic cholecystitis Status post cho
[2021-02-12] MEDS: HYDROmorphone HCL INJ (*CRX) 1 MG/ML SYR 0.5 MG IM ×2 (13:48→14:42)
[2021-02-12] MEDS: HYDROcodone/acetaminophen (*CRX) 5-325 MG TABLET 1 TAB PO ×2 (14:42→19:43)
--- NOTE | 2021-02-12 15:31 | PC.NURSE ---
Knee immobilizer placed with RN, tech, charge nurse and MD. Distal CMS intact after application.
--- NOTE | 2021-02-12 16:36 | PC.NURSE ---
[facility] made contact with [facility] about taking pt at an earlier time. [facility] is en route
[2021-02-12 17:44] VITALS: BP 127/67; PULSE 111; RESP 16; TEMP 37.2; O2SAT 100
--- NOTE | 2021-02-12 18:00 | PC.NURSE ---
Discharge teaching completed with patient. Still awaiting EMS transport
--- NOTE | 2021-02-12 18:00 | PC.NURSE ---
Suprapubic catheter emptied for 325 cc of urine. Bile bag emptied for 175 of green bile.
--- NOTE | 2021-02-12 19:18 | PC.NURSE ---
Addendum entered by Ernestina Rai 02/12/21 19:35: [facility] - no truck available will Original Note: called [facility] to request transport. Declined - no truck available.
--- NOTE | 2021-02-12 19:48 | PC.NURSE ---
called [facility] - no truck available.
[2021-02-12] MEDS: ONDANSETRON HCL ODT 4 MG TABLET PO (21:29)
[2021-02-13 00:12] VITALS: BP 130/78; PULSE 77; RESP 20; O2SAT 98
--- NOTE | 2021-02-13 00:22 | PC.NURSE ---
Addendum entered by Ernestina Rai 02/13/21 00:22: called [facility] for ETA update. ETA 0130 Original Note: called [facility] to request transport. ETA 0130
[2021-02-13] MEDS: HYDROcodone/acetaminophen (*CRX) 5-325 MG TABLET 1 TAB PO (00:47)
--- NOTE | 2021-02-13 01:44 | PC.NURSE ---
[facility] called with ETA update of [id number]
--- NOTE | 2021-02-13 02:21 | PC.NURSE ---
[facility] here.
== END 2021-02-13 02:54 | disposition home or self-care (01) ==
PROVIDERS: Emergency Provider Emergency Medicine; PCP Internal Medicine
DX: S82.102A Unspecified fracture of upper end of left tibia, initial encounter for closed fracture (principal); S82.832A Other fracture of upper and lower end of left fibula, initial encounter for closed fracture; S09.90XA Unspecified injury of head, initial encounter; S16.1XXA Strain of muscle, fascia and tendon at neck level, initial encounter; E78.5 Hyperlipidemia, unspecified; I10 Essential (primary) hypertension; G35 Multiple sclerosis; W18.39XA Other fall on same level, initial encounter; Z99.3 Dependence on wheelchair; Z86.711 Personal history of pulmonary embolism; Z87.19 Personal history of other diseases of the digestive system; Z87.09 Personal history of other diseases of the respiratory system
CPT/HCPCS: 70450; 72125; 73562; 96372; 99284; A9270; J1170